=== PATIENT | male | born 1990 | race Caucasian/White ===

== ENCOUNTER 2019-10-25 08:14 | Emergency (ER) | payer BC, SELFPAY ==
[2019-10-25 08:28] VITALS: BP 125/77; PULSE 90; RESP 20; TEMP 37.2; O2SAT 98
--- NOTE | 2019-10-25 08:39 | ED.GENADULT ---
HPI - General Adult General Chief complaint: Upper Respiratory Infection Stated complaint: Ear ache and sore throat Time Seen by Provider: 10/25/19 08:39 Source: patient and RN notes reviewed Mode of arrival: ambulatory Limitations: no limitations History of Present Illness HPI narrative: 29-year-old male presents with complaints of congestion, RT otalgia, and sore throat for 1 day. Tylenol, last night of 10/25/19 with little relief. No high fevers, drooling, neck or throat swelling. Pain is bilateral. Hurts to swallow. Exacerbation factors consist of eating and drinking. No rhinorrhea. Nasal congestion. No voice change. No nausea, vomiting, or abdominal pain. Tolerating liquids well. Denies chills, dyspnea, difficulty swallowing, jaw pain, dental pain, facial pain, foreign body sensation, and rash. Remains active. The patient reports he have not been diagnosed with COVID-19. The patient reports he is not waiting for the results of a COVID-19 lab test. The patient reports he do not have fever, chills, weakness, or fatigue. The patient reports he do not have a new or worsening cough or shortness of breath. Denies chest pain. The patient reports he do not have any loss of taste, rhinorrhea, or diarrhea. Denies recent traveling. Denies concerns for COVID-19 or exposures been home with limited outdoor exposure except for essential household needs, work, and return home. At this time, patient is not suspected of having COVID-19. Some parts of this dictation were generated by voice recognition software and may contain typographical and/or grammatical inaccuracies. Related Data Home Medications Medication Instructions Recorded Confirmed mesalamine [Canasa] 1,000 mg HI PRN 10/25/19 10/25/19 Allergies Allergy/AdvReac Type Severity Reaction Status Date / Time No Known Allergies Allergy Verified 10/25/19 09:00 Review of Systems Review of Systems: Narrative: CONSTITUTIONAL: Denies fever, chills, sweats. EYES: Denies visual changes, redness, discharge. ENT: Denies rhinorrhea,. Complains of sore throat, congestion, RT otalgia. CARDIOVASCULAR: Denies chest pain, palpitations, edema. RESPIRATORY: Denies dyspnea, wheezing, cough. GASTROINTESTINAL: Denies abdominal pain, nausea, vomiting, diarrhea. GENITOURINARY: Denies dysuria, hematuria, abnormal discharge. SKIN: Denies rash or itching. MUSCULOSKELETAL: Denies acute back pain, joint pain, or myalgia. NEUROLOGIC: Denies numbness or focal weakness. PSYCHIATRIC: Denies anxiety or depression. All systems reviewed & are unremarkable except as noted in HPI and below. [facility] Past Medical History Medical History (Updated 10/26/19 @ 00:00 by Noy Lindo) Acid reflux Ulcerative colitis Surgical History Surgical History (Updated 10/25/19 @ 09:09 by JAKE Alexander) No significant past surgical history Family History Family History (Updated 10/25/19 @ 09:10 by JAKE Alexander) Father Alive and well Mother Alive and well Social History Social History (Updated 10/25/19 @ 09:11 by JAKE Alexander) Smoking status: Former smoker Tobacco type: cigarettes Second hand tobacco smoke exposure: No Smoking end date: 03/04/11 Alcohol intake: never Substance use: never Living arrangements: with family Occupation/Education: occupation Gender identity (if verbalized by the patient): Male Comments At time of signature, agree with nurse past medical, surgical, social, and family history. There is no relevant family history pertinent to the presenting complaint. Exam Narrative: Exam Narrative: GENERAL: This is a well-nourished, well-developed patient, in no apparent distress. Speaks in full sentences without deficits and ambulates with steady gait without dyspnea. HEAD: normocephalic, atraumatic. EYES: PERRL. Sclera clear/white. Vision is grossly intact. EARS: External ears normal, auditory canals clear and without drai
== END 2019-10-25 09:10 | disposition home or self-care (01) ==
PROVIDERS: Emergency Provider Nurse Practitioner Family; PCP Family Medicine
DX: J02.9 Acute pharyngitis, unspecified (principal); Z20.828 Contact with and (suspected) exposure to other viral communicable diseases; Z87.891 Personal history of nicotine dependence; K21.9 Gastro-esophageal reflux disease without esophagitis
CPT/HCPCS: 87081; 87804; 87880; 99213; G0463

== ENCOUNTER → 2021-09-08 13:19 | Outpatient (CLI) | payer OTHER, SELFPAY ==
--- NOTE | ~2021-09-08 | CT_ITS ---
EXAMINATION: CT sinus wo con DATE: 09/08/2021 13:40 INDICATION: Chronic sinusitis. Congestion. TECHNIQUE: Computed tomography (CT) of the paranasal sinuses was performed without contrast. Iterativ e reconstruction technique was employed. Exam dose: 295.93 mGy-cm total exam DLP. COMPARISON: None FINDINGS: There is rightward deviation of nasal septum. There is intralamellar cell of both middle nasal turbinates. There is moderately prominent soft tissu e swelling of the middle and inferior nasal turbinates. There is soft tissue thickening of the right maxillary ostium and prominent partial opacification of the right infundibulum. The left ostiomeatal unit is patent. There is minimal mucoperiosteal thickening of the left frontal sinus. There is patchy soft tissue opacification of some ethmoid air cells. There is nodular mucoperiosteal thickening of the right maxillary sinus and the roof and floor of the left maxillary sinus. The sphenoid sinuses are clear. The mastoid air cells are normally developed and aerated. IMPRESSION: Rightward deviation of nasal septum Bilateral prominent soft tissue swelling of the nasal turbinates Intralamellar cell of both middle nasal turbinates Polypoid soft tissue thickening of the maxillary sinuses, right greater than left Opacification of right maxillary ostium and partial opacification of right infundibulum Mild patchy soft tissue thickening of the ethmoid air cells Minimal new comparison thickening of the left frontal sinus Reviewed, dictated and finalized at [facility]. Reviewed, dictated and finalized at [facility]. IMPRESSION: Rightward deviation of nasal septum Bilateral prominent soft tissue swelling of the nasal turbinates Intralamellar cell of both middle nasal turbinates Polypoid soft tissue thickening of the maxillary sinuses, right greater than le ft Opacification of right maxillary ostium and partial opacification of right infu ndibulum Mild patchy soft tissue thickening of the ethmoid air cells Minimal new comparison thickening of the left frontal sinus
== END ==
PROVIDERS: PCP Family Medicine; Visit Provider Otolaryngology
DX: J32.9 Chronic sinusitis, unspecified (principal); J34.2 Deviated nasal septum
CPT/HCPCS: 70486

== ENCOUNTER 2022-02-28 15:04 | Emergency (ER) | payer OTHER, SELFPAY ==
[2022-02-28 15:10] VITALS: BP 136/74; PULSE 97; RESP 20; TEMP 37.8; O2SAT 98
--- NOTE | 2022-02-28 15:11 | ED.NAVMDI ---
HPI - Nausea/Vomiting/Diarrhea General Chief complaint: Upper Respiratory Infection Stated complaint: Fever/Vomiting Time Seen by Provider: 02/28/22 15:11 Source: patient and RN notes reviewed History of Present Illness HPI Narrative: patient is a 31-year-old male who presents to urgent care with complaints of fever, vomiting, nausea, chills, body aches and sinus congestion. Patient states that it started yesterday. Patient was on amoxicillin on February 08 for 10 days for an ear infection. Patient has been taking ibuprofen for the fevers. No other acute complaints. No acute distress noted. Patient aware of the plan of care. Some parts of this dictation were generated by voice recognition software and may contain typographical and/or grammatical inaccuracies. Related Data Home Medications Medication Instructions Recorded Confirmed mesalamine 1,000 mg rectal 1 g RECTAL HS 02/28/22 02/28/22 suppository (Canasa) omeprazole 40 mg capsule,delayed 40 mg PO DAILY 02/28/22 02/28/22 release Allergies Allergy/AdvReac Type Severity Reaction Status Date / Time cephalexin [From Keflex] Allergy Unknown Unknown Verified 02/28/22 15:20 diphtheria,pertussis Allergy Unknown Unknown Verified 02/28/22 15:20 (acellular),te [From Boostrix Tdap] erythromycin base Allergy Unknown Unknown Verified 02/28/22 15:20 Review of Systems Review of Systems: CONSTITUTIONAL: reports of fever, chills EYES: Denies visual changes, redness, or discharge. ENT: Reports of sinus congestion CARDIOVASCULAR: Denies chest pain, palpitations, or edema. RESPIRATORY: Denies cough or dyspnea. GASTROINTESTINAL: reports of nausea and vomiting without diarrhea or abdominal pain GENITOURINARY: Denies dysuria or hematuria. SKIN: Denies rash or itching. MUSCULOSKELETAL: Denies back pain, joint pain. Reports of body aches NEUROLOGIC: Denies headache, numbness, or weakness. PSYCHIATRIC: Denies anxiety or depression. All other systems reviewed are negative, except as documented in HPI. [facility] Past Medical History Medical History (Updated 02/28/22 @ 15:33 by JAKE Choi) Acid reflux Ulcerative colitis Surgical History Surgical History (Updated 10/25/19 @ 09:09 by JAKE Alexander) No significant past surgical history Family History Family History (Updated 10/25/19 @ 09:10 by JAKE Alexander) Father Alive and well Mother Alive and well Social History Social History (Updated 10/25/19 @ 09:11 by JAKE Alexander) Smoking status: Former smoker Tobacco type: cigarettes Second hand tobacco smoke exposure: No Smoking end date: 03/04/11 Alcohol intake: never Substance use: never Gender identity (if verbalized by the patient): Male Comments At the time of my signature, I reviewed and agree with the nursing past medical, surgical, social, and family history. There is no relevant family history pertinent to the patient complaint. Exam Narrative: GENERAL: This is a well-nourished, well-developed patient, in no apparent distress. HEAD: normocephalic, atraumatic. EYES: PERRL. Sclera clear/white. Vision is grossly intact. EARS: External ears normal, auditory canals clear and without drainage, TMs normal without perforation. Hearing grossly intact. NOSE: External nose normal with no obvious nasal discharge, nares without redness, clear rhinorrhea. THROAT: Mucous membranes moist, posterior pharynx clear. Moderate postnasal drainage NECK: Neck supple, non-tender without lymphadenopathy CARDIOVASCULAR: Regular rate and rhythm without murmurs, gallops, or rubs. RESPIRATORY: Clear to auscultation. Breath sounds equal bilaterally. No wheezes, rales, or rhonchi. GASTROINTESTINAL: Abdomen soft, non-tender, nondistended. Bowel sounds are active. SKIN: slightly diaphoretic.warm, intact with no suspicious lesions or rash, good texture and turgor. NEURO: awake, alert, and oriented to person, plac
== END 2022-02-28 15:35 | disposition home or self-care (01) ==
PROVIDERS: Emergency Provider Nurse Practitioner Family; PCP Family Medicine
DX: B34.9 Viral infection, unspecified (principal); Z87.891 Personal history of nicotine dependence
CPT/HCPCS: 87804; 99213; G0463

== ENCOUNTER 2022-04-09 17:50 | Emergency (ER) | payer OTHER, SELFPAY ==
--- NOTE | 2022-04-09 18:03 | ED.URI ---
HPI - URI/Sore Throat General Chief Complaint: Upper Respiratory Infection Stated Complaint: cold sore throat Time Seen by Provider: 04/09/22 18:04 Source: patient and RN notes reviewed History of Present Illness HPI Narrative: patient is a 31-year-old male who presents to urgent care with complaints of scratchy throat, bilateral otalgia, sinus pressure/pain, nasal drainage. Patient states that it started with nasal drainage on Saturday and he woke up last night with the other symptoms. States that his daughter is also been ill with vomiting. Denies any fever, nausea or vomiting. Patient has taken Tylenol for his sinus headaches and Sudafed for the last couple days. Patient has been on antibiotics several times for sinusitis and has not follow up with his ENT. No other acute complaints. No acute distress noted. Patient aware of the plan care. Some parts of this dictation were generated by voice recognition software and may contain typographical and/or grammatical inaccuracies. Related Data Allergies Allergy/AdvReac Type Severity Reaction Status Date / Time cephalexin [From Keflex] Allergy Unknown Unknown Verified 02/28/22 15:20 diphtheria,pertussis Allergy Unknown Unknown Verified 02/28/22 15:20 (acellular),te [From Boostrix Tdap] erythromycin base Allergy Unknown Unknown Verified 02/28/22 15:20 Review of Systems Review of Systems: CONSTITUTIONAL: Denies fever, chills, or sweats. EYES: Denies visual changes, redness, or discharge. ENT: Reports nasal drainage, congestion, sinus pressure, sore throat CARDIOVASCULAR: Denies chest pain, palpitations, or edema. RESPIRATORY: Denies cough or dyspnea. GASTROINTESTINAL: Denies abdominal pain, nausea, vomiting, or diarrhea. GENITOURINARY: Denies dysuria or hematuria. SKIN: Denies rash or itching. MUSCULOSKELETAL: Denies back pain, joint pain, or myalgia. NEUROLOGIC: Denies headache, numbness, or weakness. All other systems reviewed are negative, except as documented in HPI. [facility] Past Medical History Medical History (Updated 04/09/22 @ 18:43 by JAKE Choi) Acid reflux Ulcerative colitis Surgical History Surgical History (Updated 10/25/19 @ 09:09 by JAKE Alexander) No significant past surgical history Family History Family History (Updated 10/25/19 @ 09:10 by JAKE Alexander) Father Alive and well Mother Alive and well Social History Social History (Updated 10/25/19 @ 09:11 by JAKE Alexander) Smoking status: Former smoker Tobacco type: cigarettes Second hand tobacco smoke exposure: No Smoking end date: 03/04/11 Alcohol intake: never Substance use: never Living arrangements: with family Occupation/Education: occupation Gender identity (if verbalized by the patient): Male Comments At the time of my signature, I reviewed and agree with the nursing past medical, surgical, social, and family history. There is no relevant family history pertinent to the patient complaint. Exam Narrative: GENERAL: This is a well-nourished, well-developed patient, in no apparent distress. HEAD: normocephalic, atraumatic. EYES: PERRL. Sclera clear/white. Vision is grossly intact. EARS: External ears normal, auditory canals clear and without drainage, TMs normal without perforation. Hearing grossly intact. NOSE: External nose normal with no obvious nasal discharge, nares without redness, clear rhinorrhea. THROAT: Mucous membranes moist, posterior pharynx clear. moderate postnasal drip NECK: Neck supple, non-tender without lymphadenopathy CARDIOVASCULAR: Regular rate and rhythm without murmurs, gallops, or rubs. RESPIRATORY: Clear to auscultation. Breath sounds equal bilaterally. No wheezes, rales, or rhonchi. SKIN: warm, intact with no suspicious lesions or rash, good texture and turgor. NEURO: awake, alert, and oriented to person, place and time. There were no obvious focal neurologic abnormalities. EXTREMITI
[2022-04-09 18:05] VITALS: BP 134/79; PULSE 66; RESP 18; TEMP 36.6; O2SAT 98
== END 2022-04-09 18:47 | disposition home or self-care (01) ==
PROVIDERS: Emergency Provider Nurse Practitioner Family; PCP Family Medicine
DX: J32.9 Chronic sinusitis, unspecified (principal); K21.9 Gastro-esophageal reflux disease without esophagitis; Z87.891 Personal history of nicotine dependence
CPT/HCPCS: 87081; 87880; 99213; G0463

== ENCOUNTER 2022-05-14 09:00 | Outpatient (NON) | payer OTHER, SELFPAY | END 2022-05-14 09:01 | disposition home or self-care (01) | PROVIDERS: PCP Family Medicine; Visit Provider Internal Medicine Gastroenterology | DX: K51.90 Ulcerative colitis, unspecified, without complications (principal) | CPT/HCPCS: 88305 ==

== ENCOUNTER 2022-05-14 12:21 | Day surgery (SDC) | payer OTHER, SELFPAY ==
[2022-05-03 08:03] VITALS: BMI 27.3
[2022-05-14 12:47] VITALS: BP 125/79; PULSE 85; RESP 16; TEMP 36.9; O2SAT 99; BMI 25.9
--- NOTE | 2022-05-14 12:48 | P.PNAN_ITS ---
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 Patient Data Age: 31 Gender: M Height: 1.75 m Weight: 84 kg Allergies Allergy/AdvReac Type Severity Reaction Status Date / Time cephalexin [From Keflex] Allergy Unknown Unknown Verified 05/14/22 12:46 diphtheria,pertussis Allergy Unknown Unknown Verified 05/14/22 12:46 (acellular),te [From Boostrix Tdap] erythromycin base Allergy Unknown Unknown Verified 05/14/22 12:46 Home Medications Medication Instructions Recorded Confirmed Type fluticasone propionate 50 2 spray intranasal DAILY #15.8 mL 04/09/22 05/03/22 Rx mcg/actuation nasal spray,suspension (Flonase Allergy Relief) mesalamine 1,000 mg rectal 1 g RECTAL QHS PRN diarrhea #14 ea 04/25/22 05/03/22 Rx suppository (Canasa) methylprednisolone 4 mg tablets in 4 mg PO DAILY #21 ea 04/26/22 05/03/22 Rx a dose pack (Medrol (Pineda)) sodium,potassium,mag sulfates 17.5 See Rx Instructions PO .COMPLEX 05/10/22 Rx gram-3.13 gram-1.6 gram oral soln #354 mL (Suprep Bowel Prep Kit) Patient hx anesthesia problems: none Family hx anesthesia problems: none Results Review: All pre-operative results and documents have been reviewed as part of the pre- operative evaluation. [facility] Past Medical History Medical History Acid reflux Ulcerative colitis Surgical History Surgical History No significant past surgical history Family History Family History Father Alive and well Mother Alive and well Social History Social History Smoking status: Never smoker Tobacco type: cigarettes Second hand tobacco smoke exposure: No Smoking end date: 03/04/11 Alcohol intake: never Substance use: never Substance use type: does not use Living arrangements: with family Occupation/Education: occupation Gender identity (if verbalized by the patient): Male Spiritual care concerns: No Anes - Eval Final PreProcedure Day of Procedure 05/14/22 12:48 Patient weight: overweight Heart: regular rate and rhythm Lungs: clear to auscultation and normal air movement Airway: Mallampati scale class II Neurological: alert and oriented Last oral intake: >/= 8 hours ASA classification: II Emergent: no Anesthetic plan: proceed Anesthesia type and monitoring: general GIVS Results Review: All pre-operative results and documents have been reviewed as part of the pre- operative evaluation. Informed Consent: The patient's anesthetic plan and its attendant risks and benefits were discussed with the patient/family/POA. Questions were solicited and answers provided to the satisfaction of the patient/family/POA.
[2022-05-14] MEDS: LACTATED RINGERS 1,000 ML 150 ML IV CONT (13:15)
--- NOTE | 2022-05-14 13:21 | WPDHPUPDATE1 ---
History and Physical Update Update Date/Time: 05/14/22 13:21 History and Physical has been reviewed, including an updated exam of the patient. There are NO changes in the patient's condition. Risks, benefits, and alternatives have been discussed and questions answered. Patient agrees to proceed with procedure.
[2022-05-14 15:23] VITALS: BP 123/71; PULSE 87; RESP 16; O2SAT 99
[2022-05-14 15:33] VITALS: BP 117/75; PULSE 88; RESP 16; O2SAT 100
--- NOTE | 2022-05-14 15:38 | WPDANESPN ---
Anes - Prog Note Post-Op Date/Time: 05/14/22 15:38 Cardiovascular status: normal Respiratory status: normal Airway patency: baseline Mental status: baseline Post-Op hydration status: normal Vital Signs: Last Vital Signs Temp 36.9 C 05/14/22 12:47 Pulse 87 05/14/22 15:23 Resp 16 05/14/22 15:23 BP 123/71 05/14/22 15:23 Pulse Ox 99 05/14/22 15:23 O2 Del Method Room Air 05/14/22 15:23 Pain Score (VAS): 0 I/O: Intake & Output 05/13/22 05/14/22 05/14/22 23:59 07:59 15:59 Intake Total 400 Balance 400 Post-procedural complaints: none Patient Feedback: Patient satisfied with anesthetic care.
[2022-05-14 15:43] VITALS: BP 122/77; PULSE 87; RESP 20; O2SAT 100
== END 2022-05-14 16:00 | disposition home or self-care (01) ==
PROVIDERS: PCP Family Medicine; Visit Provider Internal Medicine Gastroenterology
PROC: 0DJD8ZZ Inspection of Lower Intestinal Tract, Via Natural or Artificial Opening Endoscopic (ICD-10-PCS; CPT 45378; principal; 2022-05-14 14:00)
DX: K51.90 Ulcerative colitis, unspecified, without complications (principal)
CPT/HCPCS: 45380

== ENCOUNTER 2022-06-03 08:15 | Emergency (ER) | payer OTHER, SELFPAY ==
[2022-06-03 08:19] VITALS: BP 124/69; PULSE 96; RESP 18; TEMP 36.9; O2SAT 98
--- NOTE | 2022-06-03 08:35 | ED.GENADULT ---
HPI - General Adult General Chief complaint: Upper Respiratory Infection Stated complaint: Congestion/Cough Source: patient Mode of arrival: ambulatory Limitations: no limitations History of Present Illness HPI narrative: Pt presents for evaluation of sinus symptoms. Symptoms have been present for about one week. He reports sinus congestion, mucopurulent discharge from his nares, productive cough of green/yellow sputum. No fever, chills, nausea, vomiting, diarrhea. His daughter recently had similar symptoms. He has a history of sinusitis and this is similar. He does not smoke. No additional complaints or concerns. Related Data Allergies Allergy/AdvReac Type Severity Reaction Status Date / Time cephalexin [From Keflex] Allergy Unknown Unknown Verified 06/03/22 08:27 diphtheria,pertussis Allergy Unknown Unknown Verified 06/03/22 08:27 (acellular),te [From Boostrix Tdap] erythromycin base Allergy Unknown Unknown Verified 06/03/22 08:27 Review of Systems Review of Systems: CONSTITUTIONAL: Denies fever, chills, or sweats. EYES: Denies visual changes, redness, or discharge. ENT: Reports sinus congestion and mucopurulent discharge from nares CARDIOVASCULAR: Denies chest pain, palpitations, or edema. RESPIRATORY: Reports productive cough. Denies dyspnea. GASTROINTESTINAL: Denies abdominal pain, nausea, vomiting, or diarrhea. GENITOURINARY: Denies dysuria or hematuria. SKIN: Denies rash or itching. MUSCULOSKELETAL: Denies back pain, joint pain, or myalgia. NEUROLOGIC: Denies headache, numbness, dizziness, or weakness. PSYCHIATRIC: Denies anxiety or depression. [facility] Past Medical History Medical History Acid reflux Ulcerative colitis Surgical History Surgical History No significant past surgical history Family History Family History Father Alive and well Mother Alive and well Social History Social History Smoking status: Never smoker Tobacco type: cigarettes Second hand tobacco smoke exposure: No Smoking end date: 03/04/11 Alcohol intake: never Substance use: never Substance use type: does not use Living arrangements: with family Occupation/Education: occupation Gender identity (if verbalized by the patient): Male Spiritual care concerns: No Exam Narrative: GENERAL: Well-appearing, well-nourished, and in no acute distress. HEAD: Normocephalic, atraumatic. EYES: PERRLA and EOMI. ENT: Bilateral maxillary and frontal sinus tenderness. There is mucopurulent discharge in the nares bilaterally. Mucous membranes moist. Oropharynx without tonsillar hypertrophy exudate or other lesions. Bilateral TMs pearly batista nonbulging NECK: Supple. No adenopathy or masses. No carotid bruits or JVD CHEST: Clear to auscultation. No respiratory distress. No wheezes rales or rhonchi HEART: Regular rate and rhythm. No murmur heard. Normal peripheral pulses. ABDOMEN: Soft, nontender, nondistended, normal active bowel sounds. EXTREMITIES: Normal range of motion. No edema. SKIN: Warm, dry, no rash. NEURO: No focal deficits. Alert and oriented x3. PSYCH: Normal mood and affect. Course Course Emergency Course: This is a 31-year-old male who presented for evaluation of sinus symptoms. He meets criteria for ABRS based on duration of time for which he has been symptomatic and quality of discharge. Follow-up outpatient for further evaluation treatment go to the ER for worsening symptoms. Pt in agreement with plan of care. Level of Care: Express Care Visit Vital Signs Vital signs: Vital Signs Temperature 36.9 C 06/03/22 08:19 Pulse Rate 96 06/03/22 08:19 Respiratory Rate 18 06/03/22 08:19 Blood Pressure 124/69 06/03/22 08:19 Pulse Oximetry 98 0
== END 2022-06-03 08:35 | disposition home or self-care (01) ==
PROVIDERS: Emergency Provider Nurse Practitioner; PCP Family Medicine
DX: J01.90 Acute sinusitis, unspecified (principal); K21.9 Gastro-esophageal reflux disease without esophagitis; Z87.891 Personal history of nicotine dependence
CPT/HCPCS: 99213; G0463

== ENCOUNTER 2022-09-05 08:03 | Emergency (ER) | payer OTHER, SELFPAY ==
[2022-09-05 08:09] VITALS: BP 148/85; PULSE 92; RESP 16; TEMP 36.3; O2SAT 99
--- NOTE | 2022-09-05 08:15 | ED.EAR ---
HPI - Ear Problem General Chief complaint: Ear Stated complaint: Ear Pain Source: patient and RN notes reviewed History of Present Illness HPI Narrative: 31 yo M presents to urgent care with complaints of left ear pain since Saturday. Pt states his pain is now extending to left upper jaw line and posterior ear. Pt reports some congestion. Denies any fevers, chills, sore throat, or recent swimming. Related Data Allergies Allergy/AdvReac Type Severity Reaction Status Date / Time cephalexin [From Keflex] Allergy Unknown Unknown Verified 06/20/22 08:27 diphtheria,pertussis Allergy Unknown Unknown Verified 06/20/22 08:27 (acellular),te [From Boostrix Tdap] erythromycin base Allergy Unknown Unknown Verified 06/20/22 08:27 Review of Systems Review of Systems: CONSTITUTIONAL: Denies fever, chills, or sweats. EYES: Denies visual changes, redness, or discharge. ENT: Left ear pain CARDIOVASCULAR: Denies chest pain, palpitations, or edema. RESPIRATORY: Denies cough or dyspnea. GASTROINTESTINAL: Denies abdominal pain, nausea, vomiting, or diarrhea. GENITOURINARY: Denies dysuria or hematuria. SKIN: Denies rash or itching. MUSCULOSKELETAL: Denies back pain, joint pain, or myalgia. NEUROLOGIC: Denies headache, numbness, or weakness. Pertinent positives per HPI. [facility] Past Medical History Medical History Acid reflux Ulcerative colitis Surgical History Surgical History No significant past surgical history Family History Family History Father Alive and well Mother Alive and well Social History Social History Smoking status: Never smoker Tobacco type: cigarettes Second hand tobacco smoke exposure: No Smoking end date: 03/04/11 Alcohol intake: never Substance use: never Substance use type: does not use Living arrangements: with family Occupation/Education: occupation Gender identity (if verbalized by the patient): Male Spiritual care concerns: No Comments At the time of my signature, I reviewed and agree with the nursing past medical, surgical, social, and family history. There is no relevant family history pertinent to the patient complaint. Exam Narrative: GENERAL: This is a well-nourished, well-developed patient, in no apparent distress. HEAD: normocephalic, atraumatic. EYES: Sclera clear/white. Vision is grossly intact. EARS: Left ear canal erythremic, tender, and edematous. Erythema extends to tragus and posterior ear. no drainage noted. NOSE: External nose normal with no obvious nasal discharge, nares without redness, no rhinorrhea. THROAT: Mucous membranes moist, posterior pharynx clear. NECK: Neck supple, non-tender without lymphadenopathy, masses or thyromegaly. CARDIOVASCULAR: Regular rate RESPIRATORY: No respiratory distress SKIN: warm, intact with no suspicious lesions or rash, good texture and turgor. NEURO: awake, alert, and oriented to person, place and time. There were no obvious focal neurologic abnormalities. Course Course Level of Care: Express Care Visit Vital Signs Vital signs: Vital Signs Temperature 97.4 F L 09/05/22 08:09 Pulse Rate 92 09/05/22 08:09 Respiratory Rate 16 09/05/22 08:09 Blood Pressure 148/85 H 09/05/22 08:09 Pulse Oximetry 99 09/05/22 08:09 Oxygen Delivery Room Air 09/05/22 08:09 Temperature 97.4 F L 09/05/22 08:09 Pulse Rate 92 09/05/22 08:09 Respiratory Rate 16 09/05/22 08:09 Blood Pressure 148/85 H 09/05/22 08:09 Pulse Oximetry 99 09/05/22 08:09 Oxygen Delivery Room Air 09/05/22 08:09 reviewed, Medical Decision Making [facility] Narrative Medical decision making narrative: Take antibiotics as directed. May given ibuprofen and/or Tylenol as needed fo
== END 2022-09-05 08:23 | disposition home or self-care (01) ==
PROVIDERS: Emergency Provider Nurse Practitioner Family; PCP Family Medicine
DX: H60.502 Unspecified acute noninfective otitis externa, left ear (principal); K21.9 Gastro-esophageal reflux disease without esophagitis
CPT/HCPCS: 99213; G0463

== ENCOUNTER 2022-12-27 07:58 | Emergency (ER) | payer OTHER, SELFPAY ==
--- NOTE | 2022-12-27 08:02 | ED.URI ---
HPI - URI/Sore Throat General Chief Complaint: Upper Respiratory Infection Stated Complaint: throat/right ear Time Seen by Provider: 12/27/22 08:07 Source: patient, RN notes reviewed and old records reviewed Mode of arrival: ambulatory Limitations: no limitations History of Present Illness HPI Narrative: 32-year-old male presents to the [facility] with complaints of sore throat and right ear pain. States right ear started about 2 days ago, woke up this morning with a scratchy throat. Has no concern for strep, declined testing Related Data Allergies Allergy/AdvReac Type Severity Reaction Status Date / Time cephalexin [From Keflex] Allergy Unknown Unknown Verified 12/27/22 08:12 diphtheria,pertussis Allergy Unknown Unknown Verified 12/27/22 08:12 (acellular),te [From Boostrix Tdap] erythromycin base Allergy Unknown Unknown Verified 12/27/22 08:12 Review of Systems Review of Systems: All systems reviewed & are unremarkable except as noted in HPI and below Constitutional: Constitutional: Reports no additional constitutional complaints Eyes: Eyes: Reports no additional eye complaints ENT: Reports as per HPI and Reports otalgia (Right) Cardiovascular: Cardiovascular: Reports no additional cardiovascular complaints, Denies chest pain and Denies dyspnea Respiratory: Respiratory: Reports no additional respiratory complaints, Denies chest congestion, Denies cough and Denies dyspnea Gastrointestinal: Gastrointestinal: Reports no additional gastrointestinal complaints, Denies abdominal pain, Denies nausea and Denies vomiting Musculoskeletal: Musculoskeletal: Reports no additional musculoskeletal complaints Integumentary/Breasts: Skin/Breast: Reports system reviewed and no additional complaints, except as docu Neurologic: Reports system reviewed and no additional complaints, except as documented Psychiatric: Psychiatric: Reports no additional psychiatric complaints Allergic/Immunologic: Allergic/Immunologic: Reports no additional allergic/immunologic complaints [facility] Past Medical History Medical History Acid reflux Ulcerative colitis Surgical History Surgical History No significant past surgical history Family History Family History Father Alive and well Mother Alive and well Social History Social History Smoking status: Never smoker Tobacco type: cigarettes Second hand tobacco smoke exposure: No Smoking end date: 03/04/11 Alcohol intake: never Substance use: never Substance use type: does not use Living arrangements: with family Occupation/Education: occupation Gender identity (if verbalized by the patient): Male Spiritual care concerns: No Comments At the time of my signature, I reviewed and agree with the nursing past medical, surgical, social, and family history. There is no relevant family history pertinent to the patient complaint. Exam Const: General: cooperative, healthy appearing, comfortable, no acute distress, well developed, alert and well nourished Nutritional Appearance: well nourished Orientation/consciousness: patient oriented x3 Limitations: no limitations HENMT: Head: normal to inspection Ears: hearing grossly normal bilaterally, external ears normal, TM's normal bilaterally and EAC's normal Face/Nose/Sinus: Normal external nose present, Normal nares present, Normal nasal mucous membranes and turbinates present, normal facial exam and face symmetric Face and sinus: normal facial exam and face symmetric Mouth: Yes Normal oral and palatal mucosa present, Yes lip normal and Yes moist mucous membranes Throat: posterior oropharynx normal, uvula midline and postnasal drainage Eyes: General: appearance normal, both eyes and all related structures Al
[2022-12-27 08:08] VITALS: BP 121/66; PULSE 69; RESP 18; TEMP 36.3; O2SAT 98
== END 2022-12-27 08:20 | disposition home or self-care (01) ==
PROVIDERS: Emergency Provider Nurse Practitioner; PCP Family Medicine
DX: H65.01 Acute serous otitis media, right ear (principal); K21.9 Gastro-esophageal reflux disease without esophagitis; Z87.891 Personal history of nicotine dependence
CPT/HCPCS: 99213; G0463

== ENCOUNTER 2023-02-16 08:42 | Emergency (ER) | payer OTHER, SELFPAY ==
[2023-02-16 09:12] VITALS: BP 132/71; PULSE 96; RESP 20; TEMP 37.4; O2SAT 98
--- NOTE | 2023-02-16 09:34 | ED.URI ---
HPI - URI/Sore Throat General Chief Complaint: Upper Respiratory Infection Stated Complaint: Congestion Source: patient and RN notes reviewed Mode of arrival: ambulatory Limitations: no limitations History of Present Illness HPI Narrative: 32-year-old male presented for complaint of nasal congestion, mild cough this morning with low fever of 100.5. He states he woke with a sore throat which resolved after hot shower and clearing the nasal drainage. States he has had sinus infection intermittently for about 2 months. He has taken steroids and antibiotics, and had allergy testing yesterday. He has stopped his Zyrtec for the testing. Currently denies shortness of breath, wheezing, nausea, vomiting, or diarrhea. MD elicited complaint: cough Related Data Allergies Allergy/AdvReac Type Severity Reaction Status Date / Time cephalexin [From Keflex] Allergy Unknown Unknown Verified 12/27/22 08:12 diphtheria,pertussis Allergy Unknown Unknown Verified 12/27/22 08:12 (acellular),te [From Boostrix Tdap] erythromycin base Allergy Unknown Unknown Verified 12/27/22 08:12 Review of Systems Review of Systems: CONSTITUTIONAL: Denies malaise, chills, sweats, Reports fever EYES: Denies visual changes, redness, or discharge ENT: Reports rhinorrhea, congestion, denies otalgia, sore throat CARDIOVASCULAR: Denies chest pain, palpitations, edema RESPIRATORY: Reports cough, post nasal drainage. Denies dyspnea GASTROINTESTINAL: Denies abdominal pain, nausea, vomiting, diarrhea SKIN: Denies rash or itching MUSCULOSKELETAL: denies myalgia NEUROLOGIC: Denies headache [facility] Past Medical History Medical History Acid reflux Ulcerative colitis Surgical History Surgical History No significant past surgical history Family History Family History Father Alive and well Mother Alive and well Social History Social History Smoking status: Never smoker Tobacco type: cigarettes Second hand tobacco smoke exposure: No Smoking end date: 03/04/11 Alcohol intake: never Substance use: never Substance use type: does not use Living arrangements: with family Occupation/Education: occupation Gender identity (if verbalized by the patient): Male Spiritual care concerns: No Exam Narrative: GENERAL: well-appearing, nontoxic no acute distress. HEAD: Normocephalic EYES: PERRLA, conjunctivae clear ENT: Mucous membranes moist. Bilateral nares erythematous and mildly swollen. TMs pearly batista with dull light reflex bilaterally; no tragal tenderness. Oropharynx not erythematous without lesions or exudate, no drooling, no hoarseness, no trismus, uvula midline. No tripod positioning, muffled voice, soft palate or pharyngeal wall bulging NECK: Supple. No lymphadenopathy CHEST: Clear to auscultation, breath sounds equal. No wheezing, rhonchi, rales, or stridor. No respiratory distress, speaks in full sentences. HEART: Regular rate and rhythm. No murmur heard. SKIN: Warm, dry, no rash. NEURO: Alert and oriented x3. PSYCH: Normal mood and affect Course Course Emergency Course: Patient is aware of diagnosis, understands and agrees to treatment plan. Anticipatory guidance given. Patient agrees to follow-up as directed and is aware of reasons to seek care at the emergency department. Portions of this record may have been created with voice recognition software Level of Care: Express Care Visit Vital Signs Vital signs: Vital Signs Temperature 99.4 F 02/16/23 09:12 Pulse Rate 96 02/16/23 09:12 Respiratory Rate 20 02/16/23 09:12 Blood Pressure 132/71 02/16/23 09:12 Pulse Oximetry 98 02/16/23 09:12 Oxygen Delivery Room Air 02/16/23 09:12 Temperature 99.4 F 02/16/23 09:12 Puls
== END 2023-02-16 09:50 | disposition home or self-care (01) ==
PROVIDERS: Emergency Provider Nurse Practitioner Family; PCP Family Medicine
DX: J06.9 Acute upper respiratory infection, unspecified (principal)
CPT/HCPCS: 99211; G0463

== ENCOUNTER 2023-03-02 09:44 | Emergency (ER) | payer OTHER, SELFPAY ==
[2023-03-02 09:50] VITALS: BP 178/74; PULSE 94; RESP 18; TEMP 36.7; O2SAT 98
--- NOTE | 2023-03-02 10:04 | ED.GENADULT ---
HPI - General Adult General Chief complaint: Skin/Abscess/Foreign Body Stated complaint: Rash Source: patient, RN notes reviewed and old records reviewed Mode of arrival: ambulatory Limitations: no limitations History of Present Illness HPI narrative: 32-year-old male presents to Express Care with complaint rash to right upper chest that goes up to the neck. Patient states rash started . Patient states rash is irritated when touched but is non pruritic. patient has not tried anything for rash. MD complaint: rash Onset (ago): day(s) (2) Related Data Home Medications Medication Instructions Recorded Confirmed levocetirizine 5 mg tablet mg 03/02/23 Allergies Allergy/AdvReac Type Severity Reaction Status Date / Time cephalexin [From Keflex] Allergy Unknown Unknown Verified 12/27/22 08:12 diphtheria,pertussis Allergy Unknown Unknown Verified 12/27/22 08:12 (acellular),te [From Boostrix Tdap] erythromycin base Allergy Unknown Unknown Verified 12/27/22 08:12 Review of Systems Constitutional: Constitutional: Reports no additional constitutional complaints, Denies body ache(s), Denies chills, Denies fatigue, Denies fever(s) and Denies headache(s) Eyes: Eyes: Reports no additional eye complaints and Denies blurry vision ENT: Reports system reviewed and no additional complaints, except as documented, Denies vertigo, Denies dizziness, Denies ear discharge, Denies otalgia, Denies facial pain, Denies headache(s), Denies nasal congestion, Denies nasal discharge, Denies sinus pain, Denies sinus pressure and Denies sore throat Cardiovascular: Cardiovascular: Reports no additional cardiovascular complaints, Denies chest pain, Denies chest pain at rest, Denies rapid heart rate and Denies dyspnea Respiratory: Respiratory: Reports no additional respiratory complaints, Denies chest congestion, Denies cough, Denies pain on inspiration, Denies pain with cough and Denies dyspnea Gastrointestinal: Gastrointestinal: Denies abdominal pain, Denies diarrhea, Denies nausea and Denies vomiting Integumentary/Breasts: Skin/Breast: Reports rash Neurologic: Reports system reviewed and no additional complaints, except as documented, Denies vertigo, Denies dizziness and Denies headache(s) Endocrine: Endocrine: Denies fatigue PMFSH Past Medical History Medical History Acid reflux Ulcerative colitis Surgical History Surgical History No significant past surgical history Family History Family History Father Alive and well Mother Alive and well Social History Social History Smoking status: Never smoker Tobacco type: cigarettes Second hand tobacco smoke exposure: No Smoking end date: 03/04/11 Alcohol intake: never Substance use: never Substance use type: does not use Living arrangements: with family Occupation/Education: occupation Gender identity (if verbalized by the patient): Male Spiritual care concerns: No Comments At the time of my signature, I reviewed and agree with the nursing past medical, surgical, social, and family history. There is no relevant family history pertinent to the patient complaint. Exam Const: General: cooperative, healthy appearing, no acute distress and well nourished Nutritional Appearance: well nourished Orientation/consciousness: patient oriented x3 Limitations: no limitations HENMT: Head: normal to inspection and normocephalic Ears: external ears normal, TM's normal bilaterally, mastoids normal and Abnormal EAC present Face/Nose/Sinus: normal facial exam Face and sinus: normal facial exam Mouth: Yes Normal oral and palatal mucosa present, Yes oropharynx normal and Yes moist mucous membranes Throat: tonsils normal, uvula midline and no uvu
== END 2023-03-02 10:14 | disposition home or self-care (01) ==
PROVIDERS: Emergency Provider Registered Nurse; PCP Family Medicine
DX: B02.9 Zoster without complications (principal)
CPT/HCPCS: 99213; G0463

== ENCOUNTER → 2023-04-05 15:11 | Outpatient (CLI) | payer OTHER, SELFPAY ==
--- NOTE | ~2023-04-05 | CT_ITS ---
EXAMINATION: CT sinus wo con DATE: 04/05/2023 15:24 INDICATION: Chronic sinusitis TECHNIQUE: Computed tomography (CT) of the paranasal sinuses was performed without contrast. Iterativ e reconstruction technique was employed. Exam dose: 299.47 mGy-cm total exam DLP. COMPARISON: 09/08/2021 CT sinuses FINDINGS: There is rightward deviation of the nasal septum. Moderately prominent relatively symmetric in size of the nasal turbinates. Saskia bullosa of left middle nasal turbinate and bilateral middle nasal turbinate intralamellar cell . Bilateral Len's cells. There is soft tissue thickening largely occluding the right and left maxillary ostium and infundibulu m. There is severe mucoperiosteal thickening of the right maxillary sinus. Approximately 2 x 2.5 cm soft tissue opacity of the floor of the left maxillary sinus. There is patchy soft tissue thickening of the right ethmoid air cells, particularly prominent [place]. The frontal sinuses and sphenoid sinuses and left ethmoid air cells are clear. The mastoid air cells are well-developed and aerated bilaterally. Middle and inner ear apparatus appear unremarkable bilaterally.. IMPRESSION: Right ethmoid and bilateral (right greater than left) maxillary sinusitis Largely occluded bilateral maxillary ostium and infundibulum Mild saskia bullosa of left middle nasal turbinate and bilateral middle nasal turbinate intralamellar cell Rightward deviation of nasal septum Reviewed, dictated and finalized at [facility] Reviewed, dictated and finalized at [facility] IMPRESSION: Right ethmoid and bilateral (right greater than left) maxillary si nusitis Largely occluded bilateral maxillary ostium and infundibulum Mild saskia bullosa of left middle nasal turbinate and bilateral middle nasal t urbinate intralamellar cell Rightward deviation of nasal septum
== END ==
PROVIDERS: PCP Otolaryngology; Visit Provider Otolaryngology
DX: J32.0 Chronic maxillary sinusitis (principal); J34.2 Deviated nasal septum; J34.89 Other specified disorders of nose and nasal sinuses
CPT/HCPCS: 70486

== ENCOUNTER 2023-06-12 17:36 | Emergency (ER) | payer OTHER, SELFPAY ==
[2023-06-12 17:41] VITALS: BP 125/80; PULSE 92; RESP 16; TEMP 36.7; O2SAT 98
--- NOTE | 2023-06-12 18:24 | ED.GENADULT ---
HPI - General Adult General Chief complaint: Upper Respiratory Infection Stated complaint: throat/sinus issues Time Seen by Provider: 06/12/23 18:04 Source: patient, RN notes reviewed and old records reviewed Mode of arrival: ambulatory Limitations: no limitations History of Present Illness HPI narrative: 32-year-old male to Express Care for throat discomfort, sinus congestion, bilateral ear discomfort for 2 days. Patient reports chronic sinus issues. Patient scheduled for surgery on sinuses in 4 days. patient denies fever, cough, known sick exposures. Patient able to control secretions. Patient able to tolerate fluids by mouth. Related Data Home Medications Medication Instructions Recorded Confirmed levocetirizine 5 mg tablet 5 mg PO DAILY 03/02/23 06/12/23 mesalamine 1,000 mg rectal RECTAL 06/12/23 suppository Allergies Allergy/AdvReac Type Severity Reaction Status Date / Time cephalexin [From Keflex] Allergy Unknown Unknown Verified 06/12/23 17:46 diphtheria,pertussis Allergy Unknown Unknown Verified 06/12/23 17:46 (acellular),te [From Boostrix Tdap] erythromycin base Allergy Unknown Unknown Verified 06/12/23 17:46 Review of Systems Review of Systems: All systems reviewed & are unremarkable except as noted in HPI and below Constitutional: Constitutional: Reports no additional constitutional complaints Eyes: Eyes: Reports no additional eye complaints ENT: Reports otalgia ( Bilateral), Reports nasal congestion and Reports sore throat Cardiovascular: Cardiovascular: Reports no additional cardiovascular complaints, Denies chest pain and Denies dyspnea Respiratory: Respiratory: Reports no additional respiratory complaints, Denies cough and Denies dyspnea Musculoskeletal: Musculoskeletal: Reports no additional musculoskeletal complaints Neurologic: Reports system reviewed and no additional complaints, except as documented Psychiatric: Psychiatric: Reports no additional psychiatric complaints [facility] Past Medical History Medical History Acid reflux Ulcerative colitis Surgical History Surgical History No significant past surgical history Family History Family History Father Alive and well Mother Alive and well Social History Social History Smoking status: Never smoker Tobacco type: cigarettes Second hand tobacco smoke exposure: No Smoking end date: 03/04/11 Alcohol intake: never Substance use: never Substance use type: does not use Living arrangements: with family Occupation/Education: occupation Gender identity (if verbalized by the patient): Male Spiritual care concerns: No Comments At the time of my signature, I reviewed and agree with the nursing past medical, surgical, social, and family history. There is no relevant family history pertinent to the patient complaint. Exam Const: General: cooperative, healthy appearing, comfortable, no acute distress, alert and well nourished Nutritional Appearance: well nourished Orientation/consciousness: patient oriented x3 Limitations: no limitations HENMT: Head: normal to inspection Ears: external ears normal and TM abnormal with fluid behind the TM bilateral Face/Nose/Sinus: Normal external nose present, Normal nares present, normal facial exam, No erythema and No edema Face and sinus: normal facial exam, no erythema and no edema Mouth: Yes Normal oral and palatal mucosa present Throat: posterior oropharynx abnormal erythema and postnasal drainage Eyes: General: appearance normal, both eyes and all related structures Neck: Neck: normal visual inspection, full ROM and no meningeal signs Lymphatic: no lymphadenopathy noted and no lymphedema noted Chest: Chest palpatio
== END 2023-06-12 18:43 | disposition home or self-care (01) ==
PROVIDERS: Emergency Provider Nurse Practitioner Family; PCP Family Medicine
DX: J32.9 Chronic sinusitis, unspecified (principal); F17.210 Nicotine dependence, cigarettes, uncomplicated; K21.9 Gastro-esophageal reflux disease without esophagitis
CPT/HCPCS: 87081; 87880; 99213; G0463

== ENCOUNTER 2023-08-08 17:52 | Emergency (ER) | payer OTHER, SELFPAY ==
[2023-08-08 18:15] VITALS: BP 127/83; PULSE 74; RESP 20; TEMP 37.4; O2SAT 100
--- NOTE | 2023-08-08 18:24 | ED.SKABFB ---
HPI - Skin/Abscess/Foreign Bdy General Chief complaint: Skin/Abscess/Foreign Body Stated complaint: Rash on neck Time Seen by Provider: 08/08/23 18:24 Source: patient Mode of arrival: ambulatory Limitations: no limitations History of Present Illness HPI narrative: 32-year-old male presented for complaint of rash to left neck and right upper eyelid. Onset 4 days. States one of the areas on the left neck is from an insect bite. Endorses mild itching to the sites. Denies pain or drainage. Denies lip, tongue, or throat swelling, shortness of breath or wheezing. Using hydrocortisone cream. Denies changes to soap, detergent, lotion, or any other exposures. No one else in the house or any contacts with similar symptoms. Related Data Home Medications Medication Instructions Recorded Confirmed mesalamine 1,000 mg rectal 1 g RECTAL HS 08/08/23 08/08/23 suppository ([facility]) mesalamine 1.2 gram tablet,delayed 1.2 g PO DAILY 08/08/23 08/08/23 release ([facility]) Allergies Allergy/AdvReac Type Severity Reaction Status Date / Time cephalexin [From Keflex] Allergy Unknown Unknown Verified 08/08/23 18:11 diphtheria,pertussis Allergy Unknown Unknown Verified 08/08/23 18:11 (acellular),te [From Boostrix Tdap] erythromycin base Allergy Unknown Unknown Verified 08/08/23 18:11 Review of Systems Review of Systems: CONSTITUTIONAL: Denies body aches, fever, chills, or sweats. EYES: Denies visual changes, redness, or discharge. ENT: Denies rhinorrhea, congestion CARDIOVASCULAR: Denies chest pain, palpitations, or edema. RESPIRATORY: Denies cough or dyspnea. GASTROINTESTINAL: Denies abdominal pain, nausea, vomiting, or diarrhea. SKIN: Reports rash MUSCULOSKELETAL: Denies back pain, joint pain, or myalgia. NEUROLOGIC: Denies headache, numbness, tingling, or weakness. [facility] Past Medical History Medical History Acid reflux Ulcerative colitis Surgical History Surgical History No significant past surgical history Family History Family History Father Alive and well Mother Alive and well Social History Social History Smoking status: Never smoker Tobacco type: cigarettes Second hand tobacco smoke exposure: No Smoking end date: 03/04/11 Alcohol intake: never Substance use: never Substance use type: does not use Living arrangements: with family Occupation/Education: occupation Gender identity (if verbalized by the patient): Male Spiritual care concerns: No Comments At time of signature, I have reviewed and agree with nursing past medical, surgical, social and family history unless otherwise noted. Please see nursing chart for further information. There is no relevant family history pertinent to the presenting complaint Exam Narrative: GENERAL: Well-appearing EYES: conjunctivae clear, and EOMI. ENT: Mucous membranes moist. Oropharynx without edema, erythema or lesions. NECK: Supple. No lymphadenopathy CHEST: Clear to auscultation. HEART: Regular rate and rhythm. SKIN: Warm, dry. Right upper eyelid with <0.5cm diameter erythematous slightly rased dry area extending medially; left neck with scattered erythematous patches c/w contact dermatitis, nontender, no fluctuance or drainage. NEURO: Alert and oriented x3. Eyes: Eyes/upper lids images: 1. area of erythema Course Course Emergency Course: Patient is aware of diagnosis, understands and agrees to treatment plan. Anticipatory guidance given. Patient agrees to follow-up as directed and is aware of reasons to seek care at the emergency department. Portions of this record may have been created with voice recognition software Level of Care: Express Care Visit Vital Signs Vital signs: Vital Signs
== END 2023-08-08 18:34 | disposition home or self-care (01) ==
PROVIDERS: Emergency Provider Nurse Practitioner Family; PCP Family Medicine
DX: L25.9 Unspecified contact dermatitis, unspecified cause (principal); Z87.891 Personal history of nicotine dependence; K21.9 Gastro-esophageal reflux disease without esophagitis
CPT/HCPCS: 99213; G0463

== ENCOUNTER 2023-09-13 09:33 | Emergency (ER) | payer OTHER, SELFPAY ==
[2023-09-13 09:38] VITALS: BP 142/85; PULSE 85; RESP 16; TEMP 36.8; O2SAT 99
--- NOTE | 2023-09-13 09:49 | ED.SKABFB ---
HPI - Skin/Abscess/Foreign Bdy General Chief complaint: Skin/Abscess/Foreign Body Stated complaint: Rash Time Seen by Provider: 09/13/23 09:49 Source: patient Mode of arrival: ambulatory Limitations: no limitations History of Present Illness HPI narrative: 33 yo M presents with c/o itchy red bumps popping up on skin for past two days. Denies use of any new clothes, medications, food, hygiene products. Does not think are insect bites. Applying OTC steroid cream to treat itching. All systems reviewed and negative except as noted above. Related Data Home Medications Medication Instructions Recorded Confirmed mesalamine 1,000 mg rectal 1 g RECTAL HS 08/08/23 08/08/23 suppository ([place]) Allergies Allergy/AdvReac Type Severity Reaction Status Date / Time cephalexin [From Keflex] Allergy Unknown Unknown Verified 08/08/23 18:11 diphtheria,pertussis Allergy Unknown Unknown Verified 08/08/23 18:11 (acellular),te [From Boostrix Tdap] erythromycin base Allergy Unknown Unknown Verified 08/08/23 18:11 Review of Systems Review of Systems: CONSTITUTIONAL: Denies fever, chills, or sweats. EYES: Denies visual changes, redness, or discharge. ENT: Denies rhinorrhea, congestion, sore throat, or otalgia. CARDIOVASCULAR: Denies chest pain, palpitations, or edema. RESPIRATORY: Denies cough or dyspnea. GASTROINTESTINAL: Denies abdominal pain, nausea, vomiting, or diarrhea. GENITOURINARY: Denies dysuria or hematuria. SKIN: Reports rash and itching. MUSCULOSKELETAL: Denies back pain, joint pain, or myalgia. NEUROLOGIC: Denies headache, numbness, or weakness. PSYCHIATRIC: Denies anxiety or depression. All other systems reviewed are negative, except as documented in HPI. [facility] Past Medical History Medical History Acid reflux Ulcerative colitis Surgical History Surgical History No significant past surgical history Family History Family History Father Alive and well Mother Alive and well Social History Social History Smoking status: Never smoker Tobacco type: cigarettes Second hand tobacco smoke exposure: No Smoking end date: 03/04/11 Alcohol intake: never Substance use: never Substance use type: does not use Living arrangements: with family Occupation/Education: occupation Gender identity (if verbalized by the patient): Male Spiritual care concerns: No Comments At time of signature, agree with nursing past medical, surgical, social and family history. There is no relevant family history pertinent to the presenting complaint. Exam Narrative: GENERAL: This is a well-nourished, well-developed patient, in no apparent distress. HEAD: normocephalic, atraumatic. EYES: PERRL. Sclera clear/white. Vision is grossly intact. EARS: External ears normal NOSE: External nose normal NECK: Neck supple, non-tender without lymphadenopathy, masses or thyromegaly. CARDIOVASCULAR: Regular rate and rhythm without murmurs, gallops, or rubs. RESPIRATORY: Clear to auscultation. Breath sounds equal bilaterally. No wheezes, rales, or rhonchi. SKIN: warm, Dry, intact, good texture and turgor. erythematous maculopapular rash to bilateral arms, pelvis, neck. one to R eyelid NEURO: awake, alert, and oriented to person, place and time. There were no obvious focal neurologic abnormalities. EXTREMITIES: No joint tenderness, effusion, or edema noted. Course Course Level of Care: Express Care Visit Vital Signs Vital signs: Vital Signs Temperature 36.8 C 09/13/23 09:38 Pulse Rate 85 09/13/23 09:38 Respiratory Rate 16 09/13/23 09:38 Blood Pressure 142/85 H 09/13/23 09:38 Pulse Oximetry 99 09/13/23 09:38 Oxygen Delivery Room Air 09/13/23 09:38 Temperature 36.8 C
== END 2023-09-13 10:03 | disposition home or self-care (01) ==
PROVIDERS: Emergency Provider Nurse Practitioner Family; PCP Family Medicine
DX: R21 Rash and other nonspecific skin eruption (principal); Z87.891 Personal history of nicotine dependence; K21.9 Gastro-esophageal reflux disease without esophagitis
CPT/HCPCS: 99213; G0463

== ENCOUNTER 2023-10-26 08:47 | Outpatient (CLI) | payer OTHER, SELFPAY ==
[2023-10-26 10:34] LABS: Iron 141 ug/dL (49-181)
[2023-10-26 10:41] LABS: Alanine Aminotransferase 60 U/L (6-50); Albumin Level 4.5 g/dL (3.5-5.1); Alkaline Phosphatase 68 U/L (38-126); Anion Gap 10 mmol/L (4-12); Aspartate Amino Transferase 34 U/L (17-59); Bilirubin,Total 0.8 mg/dL (0.2-1.3); Blood Urea Nitrogen 15 mg/dL (9-20); CRP < 0.5 mg/dL (<1.0); Calcium 9.3 mg/dL (8.4-10.2); Carbon Dioxide 29 mmol/L (22-30); Chloride 101 mmol/L (98-107); Estimated Glomerular Filt Rate > 60; Glucose 70 mg/dL (65-110); Potassium 3.8 mmol/L (3.4-5.0); Sodium 140 mmol/L (137-145)
[2023-10-26 10:43] LABS: Basophils Absolute Auto 0.1 K/mm3 (0.0-0.1); Basophils Percent Auto 0.9 % (0.2-1.2); Eosinophils Absolute Auto 0.2 K/mm3 (0-0.3); Eosinophils Percent Auto 2.8 % (0-4.4); Hematocrit 47.8 % (42.0-52.0); Hemoglobin 16.4 g/dL (14.0-18.0); Immature Granulocyte Absolute 0.05 K/mm3 (0.00-0.031); Immature Granulocyte Percent A 0.8 % (0-0.5); Mean Corpuscular HGB Conc 34.3 g/dl (32-36); Mean Corpuscular Hemoglobin 30.1 pg (26-34); Mean Corpuscular Volume 87.9 fl (80-100); Mean Platelet Volume 12.3 fl (7.4-10.4); Monocytes Absolute Auto 0.7 K/mm3 (0.1-0.6); Monocytes Percent Auto 11.4 % (2.6-8.5); Neutrophils Absolute Auto 3.4 K/mm3 (1.3-6.7); Neutrophils Percent Auto 54.1 % (45.5-73.1); Percent Iron Saturation 42 % (20-50); Platelet Count Result 169 k/mm3 (150-375); Red Blood Count 5.44 M/mm3 (4.6-6.20); Red Cell Distribution Width 12.3 % (11.5-14.5); White Blood Count 6.3 K/mm3 (4.5-10.0)
== END 2023-10-26 08:48 | disposition home or self-care (01) ==
LOC: ANHLAB 08:49
PROVIDERS: PCP Family Medicine; Visit Provider Nurse Practitioner Family
DX: K21.9 Gastro-esophageal reflux disease without esophagitis (principal); K51.20 Ulcerative (chronic) proctitis without complications
CPT/HCPCS: 36415; 80053; 82728; 83540; 83550; 85025; 86140

== ENCOUNTER 2023-11-05 08:52 | Outpatient (CLI) | payer OTHER, SELFPAY ==
[2023-11-10 16:42] LABS: Calprotectin, Stool 507 mcg/g
== END 2023-11-05 08:53 | disposition home or self-care (01) ==
LOC: ANHLAB 08:53
PROVIDERS: PCP Family Medicine; Visit Provider Nurse Practitioner Family
DX: K51.20 Ulcerative (chronic) proctitis without complications (principal); K21.9 Gastro-esophageal reflux disease without esophagitis
CPT/HCPCS: 83993

== ENCOUNTER 2023-11-05 09:28 | Emergency (ER) | payer OTHER, SELFPAY ==
[2023-11-05 09:38] VITALS: BP 123/70; PULSE 91; RESP 20; TEMP 36.9; O2SAT 100
--- NOTE | 2023-11-05 10:01 | ED.URI ---
HPI - URI/Sore Throat General Chief Complaint: Ear Stated Complaint: ear pain/sinuses Time Seen by Provider: 11/05/23 10:02 Source: patient, RN notes reviewed and old records reviewed Mode of arrival: ambulatory Limitations: no limitations History of Present Illness HPI Narrative: 33-year-old male presents to the [facility] with sinus congestion and right ear pressure that started Saturday, 3 days. Has taken Tylenol, no other treatment prior to arrival Onset (ago): day(s) (3) Treatments prior to arrival: acetaminophen Related Data Home Medications Medication Instructions Recorded Confirmed multivitamin (Multiple Vitamins 1 tablet PO DAILY 10/22/23 11/05/23 tablet) Allergies Allergy/AdvReac Type Severity Reaction Status Date / Time cephalexin [From Keflex] Allergy Unknown Unknown Verified 11/05/23 10:03 diphtheria,pertussis Allergy Unknown Unknown Verified 11/05/23 10:03 (acellular),te [From Boostrix Tdap] erythromycin base Allergy Unknown Unknown Verified 11/05/23 10:03 Review of Systems Review of Systems: All systems reviewed & are unremarkable except as noted in HPI and below Constitutional: Constitutional: Reports no additional constitutional complaints Eyes: Eyes: Reports no additional eye complaints ENT: Reports as per HPI, Reports otalgia, Reports nasal congestion and Reports nasal discharge Cardiovascular: Cardiovascular: Reports no additional cardiovascular complaints, Denies chest pain and Denies dyspnea Respiratory: Respiratory: Reports no additional respiratory complaints, Denies chest congestion, Denies cough and Denies dyspnea Gastrointestinal: Gastrointestinal: Reports no additional gastrointestinal complaints, Denies abdominal pain, Denies nausea and Denies vomiting Musculoskeletal: Musculoskeletal: Reports no additional musculoskeletal complaints Integumentary/Breasts: Skin/Breast: Reports system reviewed and no additional complaints, except as docu Neurologic: Reports system reviewed and no additional complaints, except as documented Psychiatric: Psychiatric: Reports no additional psychiatric complaints Allergic/Immunologic: Allergic/Immunologic: Reports no additional allergic/immunologic complaints [facility] Past Medical History Medical History Acid reflux Ulcerative colitis Surgical History Surgical History H/O sinus surgery No significant past surgical history Family History Family History Father Alive and well Mother Alive and well Social History Social History Smoking status: Never smoker Tobacco type: cigarettes Second hand tobacco smoke exposure: No Smoking end date: 03/04/11 Alcohol intake: never Substance use: never Substance use type: does not use Living arrangements: with family Occupation/Education: occupation Gender identity (if verbalized by the patient): Male Spiritual care concerns: No Comments At the time of my signature, I reviewed and agree with the nursing past medical, surgical, social, and family history. There is no relevant family history pertinent to the patient complaint. Exam Const: General: cooperative, healthy appearing, comfortable, no acute distress, well developed, alert and well nourished Nutritional Appearance: well nourished Orientation/consciousness: patient oriented x3 Limitations: no limitations HENMT: Head: normal to inspection Ears: hearing grossly normal bilaterally, external ears normal, EAC's normal, mastoids normal, no periauricular adenopathy and TM abnormal bulging on the right and with fluid behind the TM bilateral; not erythematous and with no loss of landmarks Face/Nose/Sinus: Normal external nose present, Normal nares present, Normal nasal mucous membranes and turbinates p
[2023-11-05 10:12] LABS: EDINFLUASCREEN Negative; EDINFLUBSCREEN Negative
== END 2023-11-05 10:20 | disposition home or self-care (01) ==
PROVIDERS: Emergency Provider Nurse Practitioner; PCP Family Medicine
DX: R09.82 Postnasal drip (principal); J06.9 Acute upper respiratory infection, unspecified; H65.03 Acute serous otitis media, bilateral; Z20.822 Contact with and (suspected) exposure to COVID-19; Z87.891 Personal history of nicotine dependence; K21.9 Gastro-esophageal reflux disease without esophagitis
CPT/HCPCS: 83993; 87426; 87804; 99213; G0463

== ENCOUNTER 2023-12-05 09:44 | Emergency (ER) | payer OTHER, SELFPAY ==
[2023-12-05 10:05] VITALS: BP 139/72; PULSE 112; RESP 15; TEMP 37.2; O2SAT 98
[2023-12-05 10:46] LABS: EDCOVIDSCREEN Negative (Negative); EDINFLUASCREEN Negative (Negative); EDINFLUBSCREEN Negative (Negative)
--- NOTE | 2023-12-05 11:15 | ED.URI ---
HPI - URI/Sore Throat General Chief Complaint: Upper Respiratory Infection Stated Complaint: Head congestion/headache Time Seen by Provider: 12/05/23 10:50 Source: patient, RN notes reviewed and old records reviewed Mode of arrival: ambulatory Limitations: no limitations History of Present Illness HPI Narrative: 33 year old male presents to express care with complaints of headache that feels like band around head light sensitivity, dry cough and feels queasy for past 2 days with some fevers.. Patient reports some sore throat yesterday none today states some sinus drainage. Patient reports that on Saturdayhe did have 100.5F temp this morning. Reports that daughter was ill over weekend seen [facility] urgent care with viral diagnosis. Patient states that he did home COVID test which was negative. MD elicited complaint: fever, cough, rhinorrhea, nasal congestion and other (headache, feels queasy) Pertinent past history: other (sinus surgery) Onset (ago): day(s) (2) Consistency: constant Pain scale (0-10): 5 Able to tolerate fluids by mouth: Yes Treatments prior to arrival: other (Benadryl) Related Data Home Medications Medication Instructions Recorded Confirmed multivitamin (Multiple Vitamins 1 tablet PO DAILY 10/22/23 11/05/23 tablet) Allergies Allergy/AdvReac Type Severity Reaction Status Date / Time cephalexin [From Keflex] Allergy Unknown Unknown Verified 12/05/23 10:00 diphtheria,pertussis Allergy Unknown Unknown Verified 12/05/23 10:00 (acellular),te [From Boostrix Tdap] erythromycin base Allergy Unknown Unknown Verified 12/05/23 10:00 Review of Systems Review of Systems: CONSTITUTIONAL: Reports malaise, chills, sweats, or fever. EYES: Denies visual changes, redness, or discharge. ENT: Reports rhinorrhea, congestion, sinus pain, no otalgia and no present sore throat.. CARDIOVASCULAR: Denies chest pain, palpitations, or edema. RESPIRATORY: Reports dry cough.? Denies dyspnea. GASTROINTESTINAL: Denies abdominal pain,positive for nausea,no vomiting, diarrhea SKIN: Denies rash or itching. MUSCULOSKELETAL: Denies myalgia. NEUROLOGIC: Reports frontalheadache.light sensitivity All systems reviewed & are unremarkable except as noted in HPI and below PMFSH Past Medical History Medical History (Updated 12/06/23 @ 11:23 by Marielle Patel NP) Acid reflux Ulcerative colitis Ulcerative proctitis Surgical History Surgical History (Updated 12/06/23 @ 11:23 by Marielle Patel NP) H/O sinus surgery Family History Family History Father Alive and well Mother Alive and well Social History Social History (Updated 12/06/23 @ 11:24 by Marielle Patel NP) Smoking status: Former smoker Tobacco type: cigarettes Second hand tobacco smoke exposure: No Smoking end date: 03/04/11 Alcohol intake: never Substance use: never Substance use type: does not use Living arrangements: with family Occupation/Education: occupation Gender identity (if verbalized by the patient): Male Spiritual care concerns: No Comments At time of signature, agree with nursing past medical, surgical, social and family history. There is no relevant family history pertinent to the presenting complaint Exam Narrative: GENERAL: Well-appearing, well-nourished, and in no acute distress. HEAD: Normocephalic EYES: PERRLA, conjunctivae clear ENT: Nares clear, turbinates edematous and erythematous, clear discharge sinus pressure and frontal headache. Mucous membranes moist. TM pearly batista with dull light reflex bilaterally; no tragal tenderness. Oropharynx erythematous without lesions. Tonsils not enlarged and without exudate, no drooling, no hoarseness, no trismus, uvula midline. NECK: Supple. No lymphadenopathy CHEST: Clear to auscultation, breath sounds equal. No wheezing, rhonchi, rales, or stridor. No respiratory distress, speaks in
== END 2023-12-05 11:28 | disposition home or self-care (01) ==
PROVIDERS: Emergency Provider Registered Nurse; PCP Family Medicine
DX: J06.9 Acute upper respiratory infection, unspecified (principal); Z20.822 Contact with and (suspected) exposure to COVID-19; Z87.891 Personal history of nicotine dependence; K21.9 Gastro-esophageal reflux disease without esophagitis
CPT/HCPCS: 87426; 87804; 99213; G0463

== ENCOUNTER 2023-12-28 09:34 | Emergency (ER) | payer OTHER, SELFPAY ==
[2023-12-28 09:39] VITALS: BP 140/67; PULSE 97; RESP 16; TEMP 36.5; O2SAT 100
--- NOTE | 2023-12-28 09:58 | ED.EAR ---
HPI - Ear Problem General Chief complaint: Ear Stated complaint: Left Ear Pain Time Seen by Provider: 12/28/23 09:53 Source: patient, RN notes reviewed and old records reviewed Mode of arrival: ambulatory Limitations: no limitations History of Present Illness HPI Narrative: 33 year old male presents to [facility] care with complaints of sinus congestion with left ear pain for past week. Patient reports that pain in his ear is worse when swallowing and chewing. Patient reports that he has not had a fever and has been taking Tylenol for his discomfort. Patient reports no known ill contacts. MD Complaint: ear pain and other (sinus congestion increased ear pain with swallowing.,) Location: left ear Duration: constant Severity: mild Exacerbating factors: chewing and other (swallowing) Discharge from ear: Reports no Treatment prior to arrival: other (Tylenol) Related Data Home Medications Medication Instructions Recorded Confirmed multivitamin (Multiple Vitamins 1 tablet PO DAILY 10/22/23 12/28/23 tablet) mesalamine 1,000 mg rectal 1,000 mg RECTAL QHS 12/28/23 12/28/23 suppository Allergies Allergy/AdvReac Type Severity Reaction Status Date / Time diphtheria,pertussis Allergy Severe Difficulty Verified 12/28/23 10:03 (acellular),te Breathing [From Boostrix Tdap] cephalexin [From Keflex] Allergy Intermediate Hives Verified 12/28/23 10:03 erythromycin base Allergy Intermediate Hives Verified 12/28/23 10:03 Review of Systems Review of Systems: CONSTITUTIONAL: Denies fever, chills, or sweats.Reports left ear pain increases when swallowing and chewing and some sinus congestion CARDIOVASCULAR: Denies chest pain, palpitations, or edema. RESPIRATORY: Denies cough or dyspnea. GASTROINTESTINAL: Denies abdominal pain, nausea, vomiting, or diarrhea. GENITOURINARY: Reports no dysuria, frequency, urgency. Denies flank pain or hematuria. SKIN: Denies rash or itching. MUSCULOSKELETAL: Denies back pain or myalgia. Denies CVA tenderness NEUROLOGIC: Denies headache All systems reviewed & are unremarkable except as noted in HPI and below PMFSH Past Medical History Medical History Acid reflux Ulcerative colitis Ulcerative proctitis Surgical History Surgical History H/O sinus surgery Family History Family History Father Alive and well Mother Alive and well Social History Social History Smoking status: Former smoker Tobacco type: cigarettes Second hand tobacco smoke exposure: No Smoking end date: 03/04/11 Alcohol intake: never Substance use: never Substance use type: does not use Living arrangements: with family Occupation/Education: occupation Gender identity (if verbalized by the patient): Male Spiritual care concerns: No Comments At time of signature, agree with nursing past medical, surgical, social and family history. There is no relevant family history pertinent to the presenting complaint Exam Narrative: GENERAL: Well-appearing, well-nourished, and in no acute distress. HEAD: Normocephalic, atraumatic. NECK: Supple. no lymphadenopathy, throat red with post nasal drainage present, Left ear with fluid noted no redness of TM or canal CHEST: Clear to auscultation. No respiratory distress. no cough noted SAO2 100% on room air HEART: Regular rate and rhythm. No murmur heard. Normal peripheral pulses. ABDOMEN: Soft, nontender, nondistended, normal active bowel sounds. No CVA tenderness EXTREMITIES: Normal range of motion. No edema. SKIN: Warm, dry, no rash. NEURO: No focal deficits. Alert and oriented x3. Course Course Emergency Course: Patient is aware of diagnosis, understands and agrees to treatment plan.? Anticipatory guidance given.? Patient agrees to follow-up as directed and is aware of reasons to seek care at the emergency department. Portions of this record may have been created with voice recognition software Level of Care: Express Care Visit Vital Signs Vital signs: Vital Signs Temperature 36.5 C 12/28/23 09:39 Pulse Rate 97 12/28/23 09:39 Respiratory Rate 16 12/28/23 09:39 Blood Pressure 140/67 12/28/23 09:39 Pulse Oximetry 100 12/28/23 09:39 Oxygen Delivery Room Air 12/28/23 09:39 Temperature 36.5 C 12/28/23 09:39 Pulse Rate 97 12/28/23 09:39 Respiratory Rate 16 12/28/23 09:39 Blood Pressure 140/67 12/28/23 09:39 Pulse Oximetry 100 12/28/23 09:39 Oxygen Delivery Room Air 12/28/23 09:39 Reviewed Medical Decision Making Differential Diagnosis Differential Diagnosis: URI, sinus congestion, pharyngitis, strep pharyngitis, acute eustachian tube dysfunction left ear. Medical Records Medical records reviewed: Yes I reviewed the external patient's medical records. Vital Signs Vital Signs: Vital Signs Temperature 36.5 C 12/28/23 09:39 Pulse Rate 97 12/28/23 09:39 Respiratory Rate 16 12/28/23 09:39 Blood Pressure 140/67 12/28/23 09:39 Pulse Oximetry 100 12/28/23 09:39 Oxygen Delivery Room Air 12/28/23 09:39 Temperature 36.5 C 12/28/23 09:39 Pulse Rate 97 12/28/23 09:39 Respiratory Rate 16 12/28/23 09:39 Blood Pressure 140/67 12/28/23 09:39 Pulse Oximetry 100 12/28/23 09:39 Oxygen Delivery Room Air 12/28/23 09:39 Lab Data Lab results reviewed: Yes I reviewed the patient's lab results. Lab results narrative: strep screen negative culture sent Labs: Lab Results 12/28/23 Range/Units 10:25 POC Grp A Strep Screen Negative (Negative) Critical Care Time Critical Care Time Critical Care Time: No Discharge Plan Discharge Clinical Impression: Acute dysfunction of left eustachian tube Patient Disposition: Home, Self-Care Condition: Stable Instructions: Earache (ED) Additional Instructions: Increase fluids especially juices and water [id number] cough and cold medicine of your choice for your symptoms Zyrtec,Claritin or Licha daily Steroids as directed--take with food heat to the face 20-30 minutes 4-6 times a day for pain Salt water gargles, throat lozenges or throat sprays as desired Your strep test today was negative. A throat culture will be sent to the laboratory for further testing. IF the test is positive, you will receive a phone call within 48 hours and an appropriate antibiotic will be initiated at that time. If your symptoms persist, change or worsen significantly before you can contact your personal physician then please, without delay, go to the emergency department for further evaluation. Follow-up with PCP in 7-10 days or sooner if needed Follow up with PCP soon in regards to your blood pressure which is elevated above threshold for referral. Blood pressure above 120/80 may indicate pre-hypertension. Prescriptions: New methylprednisolone [Medrol (Pineda)] 4 mg tablets,dose pack See Rx Instructions .ROUTE .COMPLEX Qty: 21 0RF Rx Instructions: orally per package directions No Action mesalamine 1,000 mg suppository 1,000 mg RECTAL QHS multivitamin [Multiple Vitamins] Tablet 1 tablet PO DAILY dicyclomine 10 mg capsule 10 mg PO TID PRN (Reason: abdominal pain) Qty: 90 3RF Follow-up/Referrals: Carlos Manuel,MD Tad [Primary Care Provider] - Time of Disposition: 10:51 Quality Kerrie Coma Scale Eyes: Open Verbal: Oriented and Alert Motor: Follows Commands [place] Coma Total Score: 15
[2023-12-28 10:28] LABS: EDSTREPNEGPOS1 Negative (Negative)
== END 2023-12-28 10:52 | disposition home or self-care (01) ==
PROVIDERS: Emergency Provider Registered Nurse; PCP Family Medicine
DX: H69.92 Unspecified Eustachian tube disorder, left ear (principal); Z87.891 Personal history of nicotine dependence; K21.9 Gastro-esophageal reflux disease without esophagitis
CPT/HCPCS: 87081; 87880; 99213; G0463

== ENCOUNTER 2024-02-22 10:21 | Emergency (ER) | payer OTHER, SELFPAY ==
[2024-02-22 10:34] VITALS: BP 136/64; PULSE 95; RESP 16; TEMP 36.8; O2SAT 100
--- NOTE | 2024-02-22 11:20 | ED_ITS ---
HPI - URI/Sore Throat General Chief Complaint: Upper Respiratory Infection Stated Complaint: Sore Throat/Congestion Time Seen by Provider: 02/22/24 11:10 Source: patient, RN notes reviewed and old records reviewed Mode of arrival: ambulatory Limitations: no limitations History of Present Illness HPI Narrative: 33 year old male with complaint of sinus congestion with sinus pressure and sore throat for the past 2 days. Patient reports that daughter recently diagnosed with pneumonia and is also ill. Patient reports some dry cough with no shortness of breath or any known fevers.Patient reports that he has been taking Zicam and also DayQuil for his symptoms. MD elicited complaint: cough, sore throat, rhinorrhea, nasal congestion and sinus pain Pertinent past history: sinusitis and other (sinus surgery) Pain scale (0-10): 3 Treatments prior to arrival: other (Zicam and DayQuil) Related Data Home Medications ?Medication ?Instructions ?Recorded ?Confirmed ?Last Taken ?Type multivitamin (Multiple Vitamins 1 tablet PO DAILY 10/22/23 12/28/23 Unknown History tablet) Allergies Allergy/AdvReac Type Severity Reaction Status Date / Time diphtheria,pertussis Allergy Severe Difficulty Verified 02/22/24 11:17 (acellular),te (From Breathing Boostrix Tdap) cephalexin (From Keflex) Allergy Intermediate Hives Verified 02/22/24 11:17 erythromycin base Allergy Intermediate Hives Verified 02/22/24 11:17 Review of Systems Review of Systems: CONSTITUTIONAL: Reports malaise, no chills, sweats, or fever. EYES: Denies visual changes, redness, or discharge. ENT: Reports rhinorrhea, congestion, sinus pain,no otalgia and positive for sore throat. CARDIOVASCULAR: Denies chest pain, palpitations, or edema. RESPIRATORY: Reports cough.? Denies dyspnea. GASTROINTESTINAL: Denies abdominal pain, nausea, vomiting, diarrhea SKIN: Denies rash or itching. MUSCULOSKELETAL: Denies myalgia. NEUROLOGIC: Denies headache. All systems reviewed & are unremarkable except as noted in HPI and below PMFSH Past Medical History Medical History History of sinus problem Ulcerative proctitis Acid reflux Ulcerative colitis Surgical History Surgical History H/O sinus surgery Family History Family History Father Alive and well Mother Alive and well Social History Social History Smoking status: Former smoker Tobacco type: cigarettes Second hand tobacco smoke exposure: No Smoking end date: 03/04/11 Alcohol intake: never Substance use: never Substance use type: does not use Living arrangements: with family Occupation/Education: occupation Gender identity (if verbalized by the patient): Male Spiritual care concerns: No Comments At time of signature, agree with nursing past medical, surgical, social and family history. There is no relevant family history pertinent to the presenting complaint Exam Narrative: GENERAL: Well-appearing, well-nourished, and in no acute distress. HEAD: Normocephalic EYES: PERRLA, conjunctivae clear ENT: Nares clear with redness,, turbinates edematous and erythematous, clear light yellow discharge sinus pressure, Mucous membranes moist. TM pearly batista with dull light reflex bilaterally; no tragal tenderness. Oropharynx erythematous without lesions. Tonsils not enlarged and without exudate, no drooling, no hoarseness, no trismus, uvula midline.post nasal drainage NECK: Supple. No lymphadenopathy CHEST: Clear to auscultation, breath sounds equal. No wheezing, rhonchi, rales, or stridor. No respiratory distress, speaks in full sentences.SAO2 100% on room air HEART: Regular rate and rhythm. No murmur heard. SKIN: Warm, dry, no rash. NEURO: Alert and oriented x3. PSYCH: Normal mood and affect Course Course Emergency Course: Patient is aware of diagnosis, understands and agrees to treatment plan.? Anticipatory guidance given.? Patient agrees to follow-up as directed and is aware of reasons to seek care at the emergency department. Portions of this record may have been created with voice recognition software Level of Care: Express Care Visit Vital Signs Vital signs: Vital Signs Temperature 36.8 C 02/22/24 10:34 Pulse Rate 95 02/22/24 10:34 Respiratory Rate 16 02/22/24 10:34 Blood Pressure 136/64 02/22/24 10:34 Pulse Oximetry 100 02/22/24 10:34 Oxygen Delivery Room Air 02/22/24 10:34 Temperature 36.8 C 02/22/24 10:34 Pulse Rate 95 02/22/24 10:34 Respiratory Rate 16 02/22/24 10:34 Blood Pressure 136/64 02/22/24 10:34 Pulse Oximetry 100 02/22/24 10:34 Oxygen Delivery Room Air 02/22/24 10:34 Reviewed MDM - URI/Sore Throat MDM Narrative Medical decision making narrative: Differential diagnosis considered: Miguel virus, strep pharyngitis, allergic rhinitis, upper respiratory tract infection, sinusitis, rhinosinusitis, nasopharyngitis. viral pharyngitis, otitis media, otitis externa, pneumonia, bronchitis, viral cough syndrome, viral syndrome, and influenza.? Exam findings show no acute concerns or changes; patient is non-toxic appearing and is in no distress.? Patient is appropriate for outpatient treatment and follow-up. Differential Diagnosis Differential diagnosis: Likely upper respiratory infection, sinusitis, viral infection, pharyngitis and other (strep pharyngitis, bacterial sinusitis) Medical Records Attestation: I reviewed the patient's medical records. Lab Data Attestation: I reviewed the patient's lab results. Critical Care Time Critical Care Time Critical Care Time: No Discharge Plan Discharge Clinical Impression: Upper respiratory infection Qualifiers: URI type: unspecified URI Qualified Code(s): J06.9 - Acute upper respiratory infection, unspecified Pharyngitis Qualifiers: Pharyngitis/tonsillitis etiology: unspecified etiology Qualified Code(s): J02.9 - Acute pharyngitis, unspecified Patient Disposition: Home, Self-Care Condition: Stable Instructions: Antibiotic Form, Pharyngitis (ED), Upper Respiratory Infection (ED) Additional Instructions: Increase fluids especially juices and water Zyrtec Claritin or Licha daily Tylenol or ibuprofen for any fever pain heat to the face 20-30 minutes 4-6 times a day for pain Salt water gargles, throat lozenges or throat sprays as desired Antibiotic as directed--finished the medication If your symptoms persist, change or worsen significantly before you can contact your personal physician then please, without delay, go to the emergency department for further evaluation. Follow-up with PCP in 7-10 days or sooner if needed Follow up with PCP soon in regards to your blood pressure which is elevated above threshold for referral. Blood pressure above 120/80 may indicate pre-hyper tension. 136/64 Patient Language: Palauan Prescriptions: New azithromycin 250 mg tablet See Rx Instructions .ROUTE .COMPLEX Qty: 6 0RF Rx Instructions: For 250 mg dose pack: take 500 mg today (day 1), then 250 mg for 4 days (days 2-5) No Action multivitamin [Multiple Vitamins] Tablet 1 tablet PO DAILY mesalamine 1,000 mg suppository See Rx Instructions .ROUTE .COMPLEX Qty: 90 1RF Dose Instruction: INSERT 1 SUPPOSITORY RECTALLY EVERY DAY AT BEDTIME FOR 3 WEEKS Rx Instructions: INSERT 1 SUPPOSITORY RECTALLY EVERY DAY AT BEDTIME FOR 3 WEEKS Follow-up/Referrals: Carlos Manuel,MD Tad [Primary Care Provider] - Time of Disposition: 11:28 Quality Bruno Coma Scale Eyes: Open Verbal: Oriented and Alert Motor: Follows Commands Bruno Coma Total Score: 15
--- OUTSIDE RECORDS SUMMARY | 2024-02-29 13:41 | XMS_ITS | Patient Health Summary ---
Author Organization [facility] Address [address] [place] [address] Care Team Providers Care Monotypist Name Role Phone Unavailable Primary Care Provider Unavailabl e Note from [facility],non-owned Affiliates and Associated Physician Practices is amultiple site organization consisting of ambulatory clinics and hospital sitesin [place], [place], [place] and [place]. This disclosure is being madepursuant to the Care Everywhere program and may not contain all information available regarding this patient. Last updated 17.[facility] Allergies * Erythromycin(Other) * Cephalexin(Other) Medications * Be aware that medications may not be up to date on this document. Alwaysverify current medications with the patient. * mesalamine (CANASA) 1000 MG suppository Insert 1 suppository into the rectum at bedtime Active Problems No known active problems Social History Tobacco Use Types Packs/Day Years Used Date Smoking Tobacco: Never Smokeless Tobacco: Never Alcohol Use Standard Drinks/Week Comments Never 0 (1 standard drink = 0.6 oz pur e alcohol) AUDIT-C Answer Date Recorded Frequency of Alcohol Consumption Never 04/09/2019 Average Number of Drinks Not on file 020 Frequency of Binge Drinking Not on file 08/2019 Sex and Gender Information Value Date Recorded Sex Assigned at Not on file Gender Identity Not on file Sexual Orientation Not on file Last Filed Vital Signs Vital Sign Reading Time Taken Comments Blood Pressure 122/70 04/09/2019 11:24 AM ANTISQUEAK FILLER Pulse 99 04/09/2019 11:24 AM ANTISQUEAK FILLER Temperature 37.7 ??C (99.8 ??F) 04/09/2019 11:[address] Respiratory Rate 16 04/09/2019 11:24 AM ANTISQUEAK FILLER Oxygen Saturation 98% 04/09/2019 11:24 AM ANTISQUEAK FILLER Inhaled Oxygen Concentration - - Weight 77.1 kg (170 lb) 04/09/2019 11:24 AM ANTISQUEAK FILLER Height 177.8 cm (5' 10 ) 04/09/2019 11:24 AM ANTISQUEAK FILLER Body Mass Index 24.39 04/09/2019 11:24 AM ANTISQUEAK FILLER Procedures * INFLUENZA A+B - POINT OF CARE (AMB)(Performed 04/09/2019) Performed for Influenza B Results * (ABNORMAL) INFLUENZA A+B - POINT OF CARE (AMB) (04/09/2019) Influenza A Antigen Rapid Negative Negative Influenza B Antigen Rapid Positive(A) Negative Influenza Internal Control positive NEGATIVE - POSITIVE Influenza Lot Number [id number] Influenza Expiration Date 01/14/2021 Other NASOPHARYNGEAL SWAB / Unknown 04/09/2019 Vivi Foster TECHNICAL SALES SUPPORT MANAGER-[employer] LAB - POINT OF CARE ORDERABLES
--- OUTSIDE RECORDS SUMMARY | 2024-02-29 13:41 | XMS_ITS | Clinical Summary ---
Author Organization [facility] Address [address] [place] [address] Care Team Providers Care Hog Cutter Name Role Phone Unavailable Primary Care Provider Unavailabl e Source Comments [facility],non-owned Affiliates and Associated Physician Practices is amultiple site organization consisting of ambulatory clinics and hospital sitesin [place], [place], [place] and [place]. This disclosure is being madepursuant to the Care Everywhere program and may not contain all information available regarding this patient. Last updated 17.[facility] Allergies Active Allergy Reactions Criticality Noted Date Comments Erythromycin Other 04/09/2019 As an Cephalexin Other 04/09/2019 As an Medications * Be aware that medications may not be up to date on this document. Alwaysverify current medications with the patient. Medication Sig Dispensed Refills Start Date End Date Status mesalamine (CANASA) 1000 MG suppositoryIndicatio ns:Influenza B Insert 1 suppository into the rectum at bedtime Active Active Problems No known active problems Social [...] Comments Blood Pressure 122/70 04/09/2019 11:24 AM COSTUME DIRECTOR Pulse 99 04/09/2019 11:24 AM COSTUME DIRECTOR Temperature 37.7 ??C (99.8 ??F) 04/09/2019 11:[address] Respiratory Rate 16 04/09/2019 11:24 AM COSTUME DIRECTOR Oxygen Saturation 98% 04/09/2019 11:24 AM COSTUME DIRECTOR Inhaled Oxygen Concentration - - Weight 77.1 kg (170 lb) 04/09/2019 11:24 AM COSTUME DIRECTOR Height 177.8 cm (5' 10 ) 04/09/2019 11:24 AM COSTUME DIRECTOR Body Mass Index 24.39 04/09/2019 11:24 AM COSTUME DIRECTOR Plan of Treatment Health Maintenance Due Date Last Done Comments HIV SCREENING 2005 HEPATITIS C SCREENING 09/01/2008 DTAP/TDAP/TD VACCINES (1 - Tdap) 2009 HEPATITIS B VACCINE (1 of 3 - 19+ 3-dose series) 2009 DEPRESSION SCREENING 03/04/2023 COVID-19 VACCINE (1 - 2023-2 5 season) 2023 INFLUENZA VACCINE (#1) 2023 ZOSTER VACCINE (1 of 2) 2040 HIB VACCINE Aged Out No longer eligi ble based on patient's age to complete this topic HPV VACCINE Aged Out No longer eligi ble based on patient's age to complete this topic MENINGOCOCCAL VACCINE Aged Out No niraj linda eligible based on patient's age to complete this topic PNEUMOCOCCAL VACCINE Aged Out No long er eligible based on patient's age to complete this topic
--- OUTSIDE RECORDS SUMMARY | 2024-02-29 13:41 | XMS_ITS | Encounter Summary ---
Author Organization [facility] Address [address] [place] [address]. [place], [place] [id number] [place] [id number] Care Team Providers Care High [employer] Mathematics Teacher Name Role Phone Unavailable Primary Care Provider Unavailabl e Encounter Details Date Type Department Care Team (Late st Contact Info) Description 07/12/2009 Abstract [facility] Emergency Room [address] [place] [address] , Sahil Albright MD Social History Tobacco Use Types Packs/Day Years Used Date Smoking Tobacco: Never Assessed Sex and Gender Information Value Date Recorded Sex Assigned at Not on file Legal Sex Male 4:33 PM CDT Gender Identity Not on file Sexual Orientation Not on file documented as of this encounter Plan of Treatment Not on file documented as of this encounter Visit Diagnoses Not on filedocumented in this encounter
--- OUTSIDE RECORDS SUMMARY | 2024-02-29 13:41 | XMS_ITS | Referral Summary ---
Author Organization [facility] [email or web address] Address [address] [place] [address] Care Team Providers Care Chronometer Repairer Name Role Phone Unavailable Primary Care Provider Unavailabl e Source Comments [facility],non-owned Affiliates and Associated Physician Practices is amultiple site organization consisting of ambulatory clinics and hospital sitesin [place], [place], [place] and [place]. This disclosure is being madepursuant to the Care Everywhere program and may not contain all information available regarding this patient. Last updated 17.[facility] [email or web address] Allergies Active Allergy Reactions Criticality Noted Date [...] Comments Blood Pressure 122/70 04/09/2019 11:24 AM LAUNDRY WASHER Pulse 99 04/09/2019 11:24 AM LAUNDRY WASHER Temperature 37.7 ??C (99.8 ??F) 04/09/2019 11:[address] Respiratory Rate 16 04/09/2019 11:24 AM LAUNDRY WASHER Oxygen Saturation 98% 04/09/2019 11:24 AM LAUNDRY WASHER Inhaled Oxygen Concentration - - Weight 77.1 kg (170 lb) 04/09/2019 11:24 AM LAUNDRY WASHER Height 177.8 cm (5' 10 ) 04/09/2019 11:24 AM LAUNDRY WASHER Body Mass Index 24.39 04/09/2019 11:24 AM LAUNDRY WASHER Plan of Treatment Not on file
--- OUTSIDE RECORDS SUMMARY | 2024-02-29 13:41 | XMS_ITS | Encounter Summary ---
Author Organization [facility] Healthcare Address [address] [place] [address] Care Team Providers Care Snap Shearer Name Role Phone Tad Horowitz MD Unavailable [phone] Tad Horowitz MD Primary Care Provider [phone] Reason for Visit * Reason Comments Sore Throat Sore throat and left ear pain, sx's started yesterday, no exp, otc tylenol. Encounter Details Date Type Department Care Team (Late st Contact Info) Description 08/29/2023 11:15 AM CDT Office Visit 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 Gender Identity Male 12/01/2020 1:31 PM CDT Sexual Orientation Straight 12/01/2020 1: 31 PM CDT documented as of this encounter Last Filed Vital Signs Vital Sign Reading Time Taken Comments Blood Pressure 118/78 08/29/2023 11:21 AM CDT Pulse 86 08/29/2023 11:21 AM CDT Temperature 36.6 ??C (97.9 ??F) 08/29/2023 11:21 AM C DT Respiratory Rate 16 08/29/2023 11:21 AM CDT Oxygen Saturation 98% 08/29/2023 11:21 AM CDT Inhaled Oxygen Concentration - - Weight 85.3 kg (188 lb) 08/29/2023 11:21 AM CDT Height 175.3 cm (5' 9 ) 08/29/2023 11:21 AM CDT Body Mass Index 27.76 08/29/2023 11:21 AM CDT documented in this encounter Patient Instructions * Patient Instructions* Marilyn Ennis NP - 08/29/2023 11:15 AM CDT The treatment for ear infections (otitis media) may include any of the following: Take antibiotics as prescribed until they are gone. Take Tylenol or Motrin as directed for fever and/or discomfort. A warm (not hot) heating pad held over the ear can also help relieve the pain from the earache. Youshould use a thin cloth such as a dry washcloth between your skin and the heating pad. Follow up with your Primary Care Physician in 2 weeks for ear recheck or sooner if symptoms worsen or are not improving as planned. Recommendations and Information The main treatment for respiratory infections of any kind is to rest, eat healthy, and drink plentyof fluids. Cold symptoms will likely last anywhere from 7-10 days with symptoms feeling much worse on days 3-5. Antibiotic medications do not cure a cold nor do antibiotic medications help to shortenthe symptoms of viral illness. The following may help you feel better: Over the counter antihistamine such as loratadine (Claritin) or cetirizine (Zyrtec) to reduce secretions. The D formula includes pseudoephedrine and can be helpful as a decongestant but should not be used if you have a history of high blood pressure. Tessalon if prescribed for cough. Albuterol inhaler if prescribed for shortness of breath, cough, or wheezing. Use you albuterol inhaler or nebulizer every 4 hours for the next 48 hours, then every 4-6 hours as needed. Don't smoke and avoid second hand smoke. Suck on cough drops or hard candies to soothe a dry or sore throat. Cough drops won't stop your cough, but they may make your throat feel better. Over the counter loratadine (Claritin) or cetirizine (Zyrtec) to reduce secretions. Mucinex to thin secretions Breathe moist air from a humidifier, a hot shower, or a sink filled with hot water. The heat and moisture can help keep mucus in your airways moist so you can cough it out easily. Use nonprescription medicine, such as acetaminophen, ibuprofen, or aspirin, to relieve fever and body aches. Don't give aspirin to anyone younger than age 20. Rest more than usual. Drink plenty of fluids so that you do not become dehydrated and to keep mucous thin. Use an pkxy-wym-ahkwbyj cough medicine such as Delsym or Robitussin. (Cough medicines may not be safe for young children or for people who have certain health problems.) Cough suppressants may help you to stop coughing. Expectorants, such as Mucinex, can help you bring up mucus when you cough. Follow up with primary care physician in 1 week, or sooner if symptoms worsen. If you experience worsening shortness of breath or fever that do not improve with Tylenol/Motrin, go to the Emergency Room. documented in this encounter Ordered Prescriptions Prescription Sig Dispense Quantity Refills Last Filled Start Date End Date amoxicillin (AMOXIL) 875 mg tabletIndications: Acute serous otitis media of left ear, recurrence not specified Take 1 tablet (875 mg total) by mouth 2 (two) times a day for 10 days 20 tablet 08/29/2023 09/08/2023 documented in this encounter Progress Notes * Marilyn Ennis NP - 08/29/2023 11:15 AM CDT Images from the original note were not included. Subjective/Objective Patient ID: Shen Thomas is a 32 y.o. male. Chief Complaint Sore Throat (Sore throat and left ear pain, sx's started yesterday, no exp, otc tylenol.) Patient presents to convenient care for sore throat and left ear pain x1 day. He denies any known exposure to COVID or strep. He has been taking OTC Tylenol for his symptoms. He denies any fevers or difficulty swallowing. Sore Throat Review of Systems HENT: Positive for sore throat. All systems reviewed and are negative or non contributory for this patient's presentation today other than as stated in the HPI. Physical Exam Vitals reviewed. Constitutional: General: He is not in acute distress. Appearance: Normal appearance. He is well-developed. He is not ill-appearing. HENT: Head: Normocephalic. Right Ear: Tympanic membrane, ear canal and external ear normal. Left Ear: Ear canal and external ear normal. A middle ear effusion is present. Tympanic membrane iserythematous. Nose: No congestion or rhinorrhea. Right Sinus: No maxillary sinus tenderness or frontal sinus tenderness. Left Sinus: No maxillary sinus tenderness or frontal sinus tenderness. Mouth/Throat: Lips: [place]. Mouth: Mucous membranes are moist. Pharynx: Oropharynx is clear. Posterior oropharyngeal erythema present. Eyes: General: Right eye: No discharge. Left eye: No discharge. Conjunctiva/sclera: Conjunctivae normal. Cardiovascular: Rate and Rhythm: Normal rate and regular rhythm. Pulmonary: Effort: Pulmonary effort is normal. No respiratory distress. Breath sounds: Normal breath sounds and air entry. Musculoskeletal: General: Normal range of motion. Cervical back: Neck supple. Lymphadenopathy: Head: Right side of head: No tonsillar adenopathy. Left side of head: No tonsillar adenopathy. Cervical: No cervical adenopathy. Skin: General: Skin is warm and dry. Findings: No rash. Neurological: Mental Status: He is alert and oriented to person, place, and time. Mental status is at baseline. Psychiatric: Attention and Perception: Attention normal. Mood and Affect: Mood normal. Behavior: Behavior normal. Behavior is cooperative. Thought Content: Thought content normal. Judgment: Judgment normal. Vitals: 08/29/23 1121 BP: 118/78 Pulse: 86 Resp: 16 Temp: 36.6 ??C (97.9 ??F) TempSrc: Temporal SpO2: 98% Weight: 85.3 kg (188 lb) Height: 175.3 cm (5' 9 ) Assessment/Plan Diagnoses and all orders for this visit: Acute serous otitis media of left ear, recurrence not specified (Primary) - amoxicillin (AMOXIL) 875 mg tablet; Take 1 tablet (875 mg total) by mouth 2 (two) times a day for10 days Amoxicillin as prescribed Tylenol/Motrin as needed for pain Apply warm compresses to ear as needed for pain Return to clinic or follow-up with PCP if symptoms persist after completion of antibiotics or sooner if symptoms worsen Sore throat - POCT rapid strep A Rapid strep negative Viral URI with cough - COVID-19 POC COVID negative Discussed with patient that symptoms are likely viral Reviewed OTC medications to help with symptoms Drink plenty of fluids to stay hydrated Get plenty of rest Return to clinic or follow up with PCP if symptoms persist longer than 10 days or sooner if symptoms worsen Go to the ER if you experience chest pain, shortness of breath, or fevers that do not improve with antipyretics Recent Results (from the past 4 hour(s)) COVID-19 POC Collection Time: 08/29/23 11:32 AM Specimen: Nasal Result Value Ref Range COVID-19 Ag POC (BD Veritor) Presumptive Negative Presumptive Negative, Invalid POCT rapid strep A Collection Time: 08/29/23 11:44 AM Result Value Ref Range Rapid Strep A, POC Negative Negative Patient Education: Disposition Treatment plan including expectations, follow up, and return precautions discussed with patient/parent, verbalizes understanding. Medication dosage, use, and potential adverse reactions discussed with patient/parent. Advised to follow up with PCP if symptoms do not resolve as expected or sooner if condition worsens. Signs/symptoms warranting ER evaluation reviewed. Patient and/or guardian was given an opportunity to ask questions, questions answered. Marilyn Ennis NP documented in this encounter Plan of Treatment Not on file documented as of this encounter Procedures Procedure Name Priority Date/Time Associated Diagnosis Comments POCT RAPID STREP Routine 08/29/2023 11:4 4 AM CDT Sore throat COVID-19 POC Routine 08/29/2023 11:32 AM CDT Viral URI with cough documented in this encounter Results * POCT rapid strep A (08/29/2023 11:44 AM CDT) Rapid Strep A, POC Negative Negative Swab 08/29/2023 11:4 4 AM CDT us Marilyn Ennis ASSISTANT [employer] SUPERINTENDENT POINT OF CARE TEST ORDERABLES Fi nal Result * COVID-19 POC (08/29/2023 11:32 AM CDT) COVID-19 Ag POC (BD Veritor) Presumptive Negative Presumptive Negative, Invalid [facility] Nasal 08/29/2023 11:3 2 AM CDT us Marilyn Ennis ASSISTANT [employer] SUPERINTENDENT POINT OF CARE TEST ORDERABLES Fi nal Result [facility] [address] [place] [id number] documented in this encounter Visit Diagnoses Diagnosis Acute serous otitis media of left ear, recurrence not specified- Primary Sore throat Acute pharyngitis Viral URI with cough documented in this encounter Historical Medications * This list may reflect changes made after this encounter. levocetirizine (XYZAL) 5 mg tablet Take 1 tablet (5 mg total) by mouth daily 05/27/2023 added in this encounter Additional Health Concerns Infection Onset Date Last Indicated Resolved Time COVID: Suspected 08/29/2023 08/29/2023 08/29/2023 11:48 AM CDT documented as of this encounter Care Teams Snap Shearer Relationship Specialty Start Date End Date Tad Horowitz MD [address] [facility] [place] [address] PCP - General 05/28/21 Tad Horowitz MD [address] [place] [address] Family Medicine 12/01/20 documented as of this encounter
--- OUTSIDE RECORDS SUMMARY | 2024-02-29 13:41 | XMS_ITS | Clinical Summary ---
Author Organization [facility] Virtual Care Address [address] [place] [phone] Phone Care Team Providers Care Textile Dyer Name Role Phone Tad Horowitz MD Unavailable [phone] Tad Horowitz MD Primary Care Provider Allergies Active Allergy Reactions Criticality Noted Date Comments Diph,Pertuss(Acel),Tet Vac(Pf) Hives Medium 12/01 Diphth,Pertus(Acell),Tetanus Anaphylaxis High 2020 Erythromycin Rash Medium 06/29/2020 Erythromycin Hives Medium 12/01/2020 Cephalexin Rash Medium 06/29/2020 Cephalexin Hives Medium 12/01/2020 Medications ondansetron (ZOFRAN) 4 mg tablet Take 1 tablet (4 mg total) by mouth every 6 (six) hours 12 tablet 2 Active Additional Information Patient not taking.Reported on 05/05/2022 fluticasone propionate (FLONASE) 50 mcg/actuation nasal spray SPRAY 2 SPRAYS INTO EACH NOSTRIL DAILY 3 Active mesalamine (CANASA) 1,000 mg suppository 3 Active triamcinolone (KENALOG) 0.1 % creamIndications :Tick bite, unspecified site, initial encounter Apply topically 3 (three) times a day for 10 days 30 g 3 Active Lialda 1.2 gram EC tablet TAKE 4 TABETS BY MOUTH DAILY 3 Active methylPREDNISolo ne (Medrol, Pineda,) 4 mg DosepackIndicati ons:Acute sinusitis, recurrence not specified, unspecified location follow package directions 1 packet 4 Active Additional Information Patient not taking.Reported on 08/29/2023 levocetirizine (XYZAL) 5 mg tablet Take 1 tablet (5 mg total) by mouth daily 4 Active Active Problems No known active problems Surgical History Surgery Date Site/Laterality Comments SINUS SURGERY 12/02/2021 - 01/01/2022 Medical History Medical History Date Comments Ulcerative colitis (HCC) GERD (gastroesophageal reflux disease) No pertinent past medical history Family History Medical History Relation Name Comments Hypertension Father Hypertension Mother Relation Name Status Comments Father Alive Mother Alive Social History Tobacco Use Types Packs/Day Years Used Date Smoking Tobacco: Former Cigarettes Smokeless Tobacco: Never Personal Safety Answer Date Recorded Getting School Help Needed Not on file 04/21 Sex and Gender Information Value Date Recorded Sex Assigned at Not on file 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 Gender Identity Male 12/01/2020 1:31 PM CDT Sexual Orientation Straight 12/01/2020 1: 31 PM CDT Obstetrics History Last Filed Vital Signs Vital Sign Reading [...] Mass Index 27.76 08/29/2023 11:21 AM CDT Plan of Treatment Health Maintenance Due Date Last Done Comments Depression Screening 1990 Hepatitis C Screening 1990 Varicella Vaccines (1 of 2 - 13+ 2-dose series) 09/07/2003 Regular Well Visit/Exam 18-64 2008 DTaP/Tdap/Td Vaccine (7 - Td or Tdap) 09/21/2015 09/20/2005, 10/10/1995, 09/01/1992, Additional history exists Influenza Vaccine (#1) 2023 HPV Vaccines Aged Out No longer eligi ble based on patient's age to complete this topic Pneumococcal vaccine <65 Aged Out No longer eligible based on patient's age to complete this topic Insurance [facility] [employer] [facility] HMO/PPO Address[place] [address] [address] [place] [address] [facility] [employer] HMO/PPO Address: [place] [address] Care Teams Textile Dyer Relationship Specialty Start Date End Date Tad Horowitz MD [address] [place] [address] PCP - General 05/28/21 Tad Horowitz MD [address] [facility] [facility] [place], [place] [id number] Family Medicine 12/01/20
--- OUTSIDE RECORDS SUMMARY | 2024-02-29 13:41 | XMS_ITS | Encounter Summary ---
Author Organization [facility] Address [address] [facility] [address] [place] [id number] Care Team Providers Care Cotton Stomper Name Role Phone Tad Horowitz MD Unavailable [phone] Tad Horowitz MD Primary Care Provider [phone] Reason for Visit * Reason Comments Insect Bite Tick bites on legs, chest. Bites noticed 2 days ago. He saw the small ticks while in the shower.He has used alcohol and calamine lotion. 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 Gender Identity Male 12/01/2020 1:31 PM CDT Sexual Orientation Straight 12/01/2020 1: 31 PM CDT documented as of this encounter Last Filed Vital Signs Vital Sign Reading Time Taken Comments Blood Pressure 112/80 11/05/2022 9:22 AM CDT Pulse 99 11/05/2022 9:22 AM CDT Temperature 36.9 ??C (98.4 ??F) 11/05/2022 9:22 AM CD T Respiratory Rate 16 11/05/2022 9:22 AM CDT Oxygen Saturation 97% 11/05/2022 9:22 AM CDT Inhaled Oxygen Concentration - - Weight 83.9 kg (185 lb) 11/05/2022 9:22 AM CDT Height 175.3 cm (5' 9 ) 11/05/2022 9:22 AM CDT Body Mass Index 27.32 11/05/2022 9:22 AM CDT documented in this encounter Patient Instructions * Patient Instructions* Rubia Thomason NP - 11/05/2022 9:15 AM CDT Images from the original note were not included. Tick Bite WHAT YOU NEED TO KNOW: Ticks need to be removed quickly. Most tick bites are not dangerous, but ticks can pass disease or infection when they bite. Diseases include Lyme disease, babesiosis, tularemia, and [place] Spotted Fever. Signs and symptoms may develop weeks or even months after a bite. Some may happen right away, such as redness, pain, itching, and swelling near the bite area. Watch for a fever, rash, body aches, or breathing problems. These may be symptoms of a serious disease that needs to be treatedquickly. DISCHARGE INSTRUCTIONS: Return to the emergency department if: You have trouble walking or moving your legs. You have joint pain, muscle pain, or muscle weakness within 1 month of a tick bite. You have a fever, chills, headache, or rash. Call your doctor if: You cannot remove the tick. The tick's head is stuck in your skin. You have questions or concerns about your condition or care. Medicines: Medicines help decrease pain, redness, itching, and swelling. You may also need medicine to preventor fight a bacterial infection. These medicines may be given as a cream, lotion, or pill. Take your medicine as directed. Contact your healthcare provider if you think your medicine is not helping or if you have side effects. Tell your provider if you are allergic to any medicine. Keep a list of the medicines, vitamins, and herbs you take. Include the amounts, and when and why you take them. Bring the list or the pill bottles to follow-up visits. Carry your medicine list with you in case of an emergency. How to remove a tick: Remove the tick as soon as possible to help prevent disease or infection. Youare less likely to get sick from a tick bite if you remove the tick within 24 hours. Do not use petroleum jelly, nail malian, rubbing alcohol, or heat. These do not work and may be dangerous. Do the f ollowing to remove a tick: First, try a soapy cotton ball. Soak a cotton ball in liquid soap. Cover the tick with the cotton ball for 30 seconds. The tick may come off with the cotton ball when you pull it away. Use tweezers if the soapy cotton ball does not work. Grasp the tick as close to your skin as possible. Pull the tick straight up and out. Do not touch the tick with your bare hands. Do not twist or jerk the tick suddenly, because this may break off the tick's head or mouth parts. Do not leave any part of the tick in your skin. Do not crush or squeeze the tick since its body may be infected with germs. Flush the tick down thetoilet. After the tick is removed, clean the area of the bite with rubbing alcohol. Then wash your hands with soap and water. Apply ice on your bite for 15 to 20 minutes every hour or as directed. Use an ice pack, or put crushed ice in a plastic bag. Cover it with a towel before you apply it to your skin. Ice helps prevent tissue damage and decreases swelling and pain. Prevent a tick bite: Ticks live in areas covered by brush and grass. They may even be found in yourlawn if you live in certain areas. Outdoor pets can carry ticks inside the house. Ticks can grab onto you or your clothes when you walk by grass or brush. If you go into areas that contain many trees, tall grasses, and underbrush, do the following: Wear light colored pants and a long-sleeved shirt. Tuck your pants into your socks or boots. Tuck in your shirt. Wear sleeves that fit close to the skin at your wrists and neck. This will help prevent ticks from crawling through gaps in your clothing and onto your skin. Wear a hat in areas with trees. Apply insect repellant on your skin. The insect repellant should contain DEET. Do not put insect repellant on skin that is cut, scratched, or irritated. Always use soap and water to wash the insect repellant off as soon as possible once you are indoors. Do not apply insect repellant on your child'sface or hands. Beckemeyer insect repellant onto your clothes. Use permethrin spray. This spray kills ticks that crawl on your clothing. Be sure to spray the tops of your boots, bottom of pant legs, and sleeve cuffs. As soon as possible, wash and dry clothing in hot water and high heat. Check your clothing, hair, and skin for ticks. Shower within 2 hours of coming indoors. Carefully check the hairline, armpits, neck, and waist. Check your pets and children for ticks. Remove ticks from pets the same way as you remove them from people. Decrease the risk for ticks in your yard. Ticks like to live in shady, moist areas. Mow your lawn regularly to keep the grass short. Trim the grass around birdbaths and fences. Cut branches that are overgrown and take them out of the yard. Clear out leaf piles. Stack firewood in a dry, ulysses area. Follow up with your doctor as directed: Write down your questions so you remember to ask them during your visits. ?? Copyright [employer] 2021 Information is for End User's use only and may not be sold, redistributed or otherwise used for commercial purposes. All illustrations and images included in CareNotes?? are the copyrighted property of [employer]. or [employer] The above information is an educational recruiter only. It is not intended as medical advice for individual conditions or treatments. Talk to your doctor, nurse or pharmacist before following any medical regimen to see if it is safe and effective for you. documented in this encounter Ordered Prescriptions Prescription Sig Dispense Quantity Refills Last Filled Start Date End Date triamcinolone (KENALOG) 0.1 % creamIndications:T ick bite, unspecified site, initial encounter Apply topically 3 (three) times a day for 10 days 30 g 11/05/2022 doxycycline monohydrate (MONODOX) 100 mg capsuleIndications :Tick bite, unspecified site, initial encounter Take 1 capsule (100 mg total) by mouth 2 (two) times a day for 10 days 20 capsule 11/05/2022 3 documented in this encounter Progress Notes * Rubia Thomason, HARMEET - 11/05/2022 9:15 AM CDT Images from the original note were not included. Subjective/Objective Patient ID: Shen Thomas is a 32 y.o. male. Chief Complaint Insect Bite (Tick bites on legs, chest. Bites noticed 2 days ago. He saw the small ticks while in the shower./He has used alcohol and calamine lotion.) Presents to convenient care with complaint of tick bites to right leg, waist band, and chest, onset2 days ago. Patient reports Poppy seed sized bugs and removed them with tape. He reports itching to the site. He is concerned with bull's-eye appearing rash to tick on chest. He has been using alcohol and calamine lotion at sites. Review of Systems Constitutional: Negative. Respiratory: Negative. Cardiovascular: Negative. Skin: Positive for wound (Rash/bite). Physical Exam Eyes: Conjunctiva/sclera: Conjunctivae normal. Cardiovascular: Rate and Rhythm: Normal rate. Pulmonary: Effort: Pulmonary effort is normal. Skin: General: Skin is warm and dry. Neurological: Mental Status: He is alert. Psychiatric: Mood and Affect: Mood normal. Vitals: 11/05/22 0922 BP: 112/80 Pulse: 99 Resp: 16 Temp: 36.9 ??C (98.4 ??F) TempSrc: Temporal SpO2: 97% Weight: 83.9 kg (185 lb) Height: 175.3 cm (5' 9 ) No results found for this or any previous visit (from the past 4 hour(s)). Assessment/Plan Diagnoses and all orders for this visit: Tick bite, unspecified site, initial encounter (Primary) - triamcinolone (KENALOG) 0.1 % cream; Apply topically 3 (three) times a day for 10 days - doxycycline monohydrate (MONODOX) 100 mg capsule; Take 1 capsule (100 mg total) by mouth 2 (two) times a day for 10 days Patient Education: Tick Bite WHAT YOU NEED TO KNOW: Ticks need to be removed quickly. Most tick bites are not dangerous, but ticks can pass disease or infection when they bite. Diseases include Lyme disease, babesiosis, tularemia, and [place] Spotted Fever. Signs and symptoms may develop weeks or even months after a bite. Some may happen right away, such as redness, pain, itching, and swelling near the bite area. Watch for a fever, rash, body aches, or breathing problems. These may be symptoms of a serious disease that needs to be treatedquickly. DISCHARGE INSTRUCTIONS: Return to the emergency department if: You have trouble walking or moving your legs. You have joint pain, muscle pain, or muscle weakness within 1 month of a tick bite. You have a fever, chills, headache, or rash. Call your doctor if: You cannot remove the tick. The tick's head is stuck in your skin. You have questions or concerns about your condition or care. Medicines: Medicines help decrease pain, redness, itching, and swelling. You may also need medicine to preventor fight a bacterial infection. These medicines may be given as a cream, lotion, or pill. Take your medicine as directed. Contact your healthcare provider if you think your medicine is not helping or if you have side effects. Tell your provider if you are allergic to any medicine. Keep a list of the medicines, vitamins, and herbs you take. Include the amounts, and when and why you take them. Bring the list or the pill bottles to follow-up visits. Carry your medicine list with you in case of an emergency. How to remove a tick: Remove the tick as soon as possible to help prevent disease or infection. Youare less likely to get sick from a tick bite if you remove the tick within 24 hours. Do not use petroleum jelly, nail malian, rubbing alcohol, or heat. These do not work and may be dangerous. Do the f ollowing to remove a tick: First, try a soapy cotton ball. Soak a cotton ball in liquid soap. Cover the tick with the cotton ball for 30 seconds. The tick may come off with the cotton ball when you pull it away. Use tweezers if the soapy cotton ball does not work. Grasp the tick as close to your skin as possible. Pull the tick straight up and out. Do not touch the tick with your bare hands. Do not twist or jerk the tick suddenly, because this may break off the tick's head or mouth parts. Do not leave any part of the tick in your skin. Do not crush or squeeze the tick since its body may be infected with germs. Flush the tick down thetoilet. After the tick is removed, clean the area of the bite with rubbing alcohol. Then wash your hands with soap and water. Apply ice on your bite for 15 to 20 minutes every hour or as directed. Use an ice pack, or put crushed ice in a plastic bag. Cover it with a towel before you apply it to your skin. Ice helps prevent tissue damage and decreases swelling and pain. Prevent a tick bite: Ticks live in areas covered by brush and grass. They may even be found in yourlawn if you live in certain areas. Outdoor pets can carry ticks inside the house. Ticks can grab onto you or your clothes when you walk by grass or brush. If you go into areas that contain many trees, tall grasses, and underbrush, do the following: Wear light colored pants and a long-sleeved shirt. Tuck your pants into your socks or boots. Tuck in your shirt. Wear sleeves that fit close to the skin at your wrists and neck. This will help prevent ticks from crawling through gaps in your clothing and onto your skin. Wear a hat in areas with trees. Apply insect repellant on your skin. The insect repellant should contain DEET. Do not put insect repellant on skin that is cut, scratched, or irritated. Always use soap and water to wash the insect repellant off as soon as possible once you are indoors. Do not apply insect repellant on your child'sface or hands. Beckemeyer insect repellant onto your clothes. Use permethrin spray. This spray kills ticks that crawl on your clothing. Be sure to spray the tops of your boots, bottom of pant legs, and sleeve cuffs. As soon as possible, wash and dry clothing in hot water and high heat. Check your clothing, hair, and skin for ticks. Shower within 2 hours of coming indoors. Carefully check the hairline, armpits, neck, and waist. Check your pets and children for ticks. Remove ticks from pets the same way as you remove them from people. Decrease the risk for ticks in your yard. Ticks like to live in shady, moist areas. Mow your lawn regularly to keep the grass short. Trim the grass around birdbaths and fences. Cut branches that are overgrown and take them out of the yard. Clear out leaf piles. Stack firewood in a dry, ulysses area. Follow up with your doctor as directed: Write down your questions so you remember to ask them during your visits. ?? Copyright [employer] 2021 Information is for End User's use only and may not be sold, redistributed or otherwise used for commercial purposes. All illustrations and images included in CareNotes?? are the copyrighted property of [employer]. or [employer] The above information is an educational recruiter only. It is not intended as medical advice for individual conditions or treatments. Talk to your doctor, nurse or pharmacist before following any medical regimen to see if it is safe and effective for you. Disposition Treatment plan including expectations, follow up, and return precautions discussed with patient/parent, verbalizes understanding. Medication dosage, use, and potential adverse reactions discussed with patient/parent. Advised to follow up with PCP if symptoms do not resolve as expected or sooner if condition worsens. Signs/symptoms warranting ER evaluation reviewed. Patient and/or guardian was given an opportunity to ask questions, questions answered. Rubia Thomason NP documented in this encounter Plan of Treatment Not on file documented as of this encounter Visit Diagnoses Diagnosis Tick bite, unspecified site, initial encounter- Primary documented in this encounter Care Teams Cotton Stomper Relationship Specialty Start Date End Date Tad Horowitz MD [address] [place] [address] PCP - General 05/28/21 Tad Horowitz MD [address] [place] [address] Family Medicine 12/01/20 documented as of this encounter
--- OUTSIDE RECORDS SUMMARY | 2024-02-29 13:41 | XMS_ITS | Referral Summary ---
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 CHO[facility] HMO/PPO Address: [address] [address] [place] [address] [facility] ACCESS CHOICE [facility] CHOICE [facility] HMO/PPO Address: [address] [address] [place] [address] Care Teams Stumper Feller Relationship Specialty Start Date End Date Tad Horowitz MD [address] [place] [address] PCP - General 05/28/21 Tad Horowitz MD [address] [place] [address] Family Medicine 12/01/20
--- OUTSIDE RECORDS SUMMARY | 2024-02-29 13:41 | XMS_ITS | Encounter Summary ---
Author Organization [facility] Healthcare Address [address] [place] [address] Care Team Providers Care E Learning Developer Name Role Phone Tad Horowitz MD Unavailable [phone] Tad Horowitz MD Primary Care Provider [phone] Reason for Visit * Reason Comments Sinus Problem Sinus congestion, si nus pressure, eye drainage this morning and have been itching, sx's started on Saturday, his daughter had an eye issue last week and was given eye drops but was told it was not pink eye, negative at home covid test yesterday, otc tylenol sinus and benadryl. Encounter Details Date Type Department Care Team (Late st Contact Info) Description 04/21/2023 11:30 AM BIOLOGY INTERN Office Visit [facility] [place] [address] [place] [place] [phone] Marilyn Ennis, HAR[place] [address] [place] [address] Acute sinusitis, recurrence not specified, unspecified location (Primary Dx) Social History Tobacco Use Types Packs/Day Years Used Date Smoking Tobacco: Former Cigarettes Smokeless Tobacco: Never Personal Safety Answer Date Recorded Getting School Help Needed Not on file 04/21 Sex and Gender Information Value Date Recorded Sex Assigned at Not on file Legal Sex Male 10:04 PM BIOLOGY INTERN Gender Identity Male 12/01/2020 1:31 PM CDT Sexual Orientation Straight 12/01/2020 1: 31 PM CDT documented as of this encounter Last Filed Vital Signs Vital Sign Reading Time Taken Comments Blood Pressure 118/74 04/21/2023 11:11 AM BIOLOGY INTERN Pulse 94 04/21/2023 11:11 AM BIOLOGY INTERN Temperature 36.7 ??C (98 ??F) 04/21/2023 11:11 AM BIOLOGY INTERN Respiratory Rate 20 04/21/2023 11:11 AM BIOLOGY INTERN Oxygen Saturation 95% 04/21/2023 11:11 AM BIOLOGY INTERN Inhaled Oxygen Concentration - - Weight 83.9 kg (185 lb) 04/21/2023 11:11 AM BIOLOGY INTERN Height 175.3 cm (5' 9 ) 04/21/2023 11:11 AM BIOLOGY INTERN Body Mass Index 27.32 04/21/2023 11:11 AM BIOLOGY INTERN documented in this encounter Patient Instructions * Patient Instructions* Marilyn Ennis NP - 04/21/2023 11:30 AM BIOLOGY INTERN Research has proven that unless you are running a fever or symptoms start to improve then get worseagain, sinus infections are typically viral until days 9-10. Finish the entire antibiotic prescription. Take this with food. Eat yogurt or take probiotic daily while on antibiotics. Symptomatic treatments include: - Over the counter antihistamine such as loratadine (Claritin) or cetirizine (Zyrtec) to reduce secretions. The D formula includes pseudoephedrine and can be helpful as a decongestant but SHOULD NOT BE USED IF YOU HAVE A HISTORY OF HIGH BLOOD PRESSURE. - Coricidin HBP may be taken for congestion if you have a history of high blood pressure. - Topical decongestants are another option such as Afrin. Do not use for more than 3 days as it cancause rebound congestion worse than original congestion. - Tessalon, Dextromethorphan (Robitussin) or Delsym for cough - Guafenesin (Mucinex) to thin secretions - Acetaminophen (Tylenol), ibuprofen (Motrin, Advil), or Aleve (naproxen) for pain or fever. - The use of hypertonic saline to irrigate nasal passageways can be helpful. Over the counter systems include Neti Pot and Nasopure. Use with distilled water. - Salt water gargles and throat lozenges can be helpful for sore throat. - To prevent spreading the illness to others cover your sneeze and cough into your arm and not yourhand, don't allow others to eat or drink with the same utensils or glass, and use hand fleet sales associate before touching people or common surfaces. - Apply warm packs to face to facilitate sinus drainage. - Use cool mist humidifier in bedroom at night. - Increase fluid consumption and rest. - Follow up with your PCP in 1 week or sooner if symptoms worsen or are not improving as planned. - If you experience any shortness of breath, chest pain, or high fever >101, go to the EmergencyRoom. OGY INTERN documented in this encounter Ordered Prescriptions Prescription Sig Dispense Quantity Refills Last Filled Start Date End Date methylPREDNISolone (Medrol, Pineda,) 4 mg DosepackIndication s:Acute sinusitis, recurrence not specified, unspecified location follow package directions 1 packet 04/21/2023 documented in this encounter Progress Notes * Marilyn Ennis NP - 04/21/2023 11:30 AM CST Images from the original note were not included. Subjective/Objective Patient ID: Shen Thomas is a 32 y.o. male. Chief Complaint Sinus Problem (Sinus congestion, sinus pressure, eye drainage this morning and have been itching, sx's started on Saturday, his daughter had an eye issue last week and was given eye drops but was told it was not pink eye, negative at home covid test yesterday, otc tylenol sinus and benadryl.) Patient presents to [facility] for sinus congestion and sinus pressure x4 days. This morning, he has experienced bilateral eye itching and watery drainage. He denies any known exposure to COVID,flu, or strep. He took an at home COVID test yesterday which was negative. He does note that his daughter recently had an eye infection. Patient states that he has a history of sinus infections. He has been taking OTC Tylenol sinus and Benadryl for his symptoms. He denies any fevers, shortness of breath, or chest pain. Sinus Problem Review of Systems All systems reviewed and are negative or non contributory for this patient's presentation today other than as stated in the HPI. Physical Exam Vitals reviewed. Constitutional: General: He is not in acute distress. Appearance: Normal appearance. He is well-developed. He is not ill-appearing. HENT: Head: Normocephalic. Right Ear: Tympanic membrane, ear canal and external ear normal. Left Ear: Tympanic membrane, ear canal and external ear normal. Nose: Congestion present. No rhinorrhea. Right Sinus: No maxillary sinus tenderness or frontal sinus tenderness. Left Sinus: No maxillary sinus tenderness or frontal sinus tenderness. Mouth/Throat: Lips: [place]. Mouth: Mucous membranes are moist. Pharynx: Oropharynx is clear. Eyes: General: Right eye: No discharge. Left [...] Thought content normal. Judgment: Judgment normal. Vitals: 04/21/23 1111 BP: 118/74 Pulse: 94 Resp: 20 Temp: 36.7 ??C (98 ??F) TempSrc: Temporal SpO2: 95% Weight: 83.9 kg (185 lb) Height: 175.3 cm (5' 9 ) Assessment/Plan No signs of bacterial infection on exam today Medrol Dosepak for sinusitis Discussed OTC decongestants for congestion- Sudafed/Mucinex/Flonase Motrin/Tylenol for pain/fever Antihistamines- Zyrtec, Benadryl can be used for runny nose. Discussed hydration-Drink plenty of water & get plenty of rest A humidifier may also help with congestion May try sinus rinses or steam- Saline rinses Follow up with your PCP in 7 days if you are not getting better Diagnoses and all orders for this visit: Acute sinusitis, recurrence not specified, unspecified location (Primary) - methylPREDNISolone (Medrol, Pineda,) 4 mg Dosepack; follow package directions No results found for this or any previous visit (from the past 4 hour(s)). Patient Education: Disposition Treatment plan including expectations, [...] ask questions, questions answered. Marilyn Ennis NP OGY INTERN documented in this encounter Plan of Treatment Not on file documented as of this encounter Visit Diagnoses Diagnosis Acute sinusitis, recurrence not specified, unspecified location- Primary documented in this encounter Discontinued Medications Medication Sig Discontinue Reason Start Date End Da te methylPREDNISolone (MEDROL DOSEPACK) 4 mg Dosepack TAKE 6 TABLETS ON DAY 1 DIRECTED ON PACKAGE AND DECREASE BY 1 TAB EACH DAY FOR A TOTAL OF 6 DAYS 04/26/2022 04/21/2023 predniSONE (DELTASONE) 20 mg tablet TAKE 1 TABLET ORALLY DAILY Therapy completed 04/09/2022 04/21/2023 documented as of this encounter Care Teams E Learning Developer Relationship Specialty Start Date End Date Tad Horowitz MD [address] [place] [address] PCP - General 05/28/21 Tad Horowitz MD [address] [place] [address] Family Medicine 12/01/20 documented as of this encounter
--- OUTSIDE RECORDS SUMMARY | 2024-02-29 13:41 | XMS_ITS | Encounter Summary ---
Author Organization [facility] Address [address] [place] [address] Care Team Providers Care Oil Refinery Operator Name Role Phone Unavailable Primary Care Provider Unavailabl e Reason for Visit * Reason Comments Cough Congestion Headache Fatigue Ear Problem Ear Pain Fever Encounter Details Date Type Department Care Team (Late st Contact Info) Description 04/09/2019 11:00 AM FLORAL DECORATOR Office Visit [facility] AT [address] [phone] Provider, [facility] [place] Influenza B (Primary Dx) Social History Tobacco Use Types [...] on file documented as of this encounter Last Filed Vital Signs Vital Sign Reading Time Taken Comments Blood Pressure 122/70 04/09/2019 11:24 AM FLORAL DECORATOR Pulse 99 04/09/2019 11:24 AM FLORAL DECORATOR Temperature 37.7 ??C (99.8 ??F) 04/09/2019 11:[address] Respiratory Rate 16 04/09/2019 11:24 AM FLORAL DECORATOR Oxygen Saturation 98% 04/09/2019 11:24 AM FLORAL DECORATOR Inhaled Oxygen Concentration - - Weight 77.1 kg (170 lb) 04/09/2019 11:24 AM FLORAL DECORATOR Height 177.8 cm (5' 10 ) 04/09/2019 11:24 AM FLORAL DECORATOR Body Mass Index 24.39 04/09/2019 11:24 AM FLORAL DECORATOR documented in this encounter Patient Instructions * Patient Instructions* Vivi Foster, SUPERVISOR POLISHING-TRANSMISSION MECHANIC - 04/09/2019 11:42 AM FLORAL DECORATOR Images from the original note were not included. Influenza ??? Supportive care is the focus of care with influenza-make sure to stay well- hydrated and treat symptoms with over the counter medications for symptom relief. ??? Take guaifenesin expectorants (Mucinex) to promote cough ??? For cough supression, dextromethorphan (Delsym syrup, Robitussin cough capsules or store brand). Dextromethorphan is considered safe for and breast feeding women. ??? Antihistamine, i.e. Claritin, Zyrtec or Benadryl for nasal drainage, per package directions. ??? Increase oral fluids to at least 2 liters (2 quarts) of non-caffeinated, non-alcoholic beverages daily ??? Increase rest, monitor temperature ??? May alternate acetaminophen (Tylenol) and ibuprofen (Motrin or Advil) with food every 4-6 hoursfor fever, body aches, headache or sore throat. Do not exceed maximum daily dose per package instructions ??? May use hard candy, throat lozenges, Chloraseptic spray or warm salt water gargles to soothe throat ??? Activity as tolerated, Avoid crowds and large groups ??? Avoid spreading germs by washing hands frequently and covering mouth when coughing ??? People with influenza are contagious 1 day before symptoms begin and up to 7 days after gettingck Influenza Follow-up ??? Follow up with the clinic, primary care provider or urgent care if symptoms become more severe. ??? If you begin to feel better, then feel significantly worse, see your primary care provider or go to urgent care / ER SERIOUS COMPLICATIONS OF INFLUENZA CAN OCCUR. CALL 911 OR GO TO ER WITH ANY DIFFICULTY BREATHING, SHORTNESS OF BREATH, INCREASED WORK OF BREATHING, DIFFICULTY TAKING A DEEP BREATH, ANY CHANGES IN THECOLOR OF YOUR SKIN (BLUISH OR PALE COLOR), WORSENING OF COUGH, OR CONSISTENT FEVERS, INABILITY TO KEEP FLUIDS DOWN, DECREASED ABILITIY TO URINATE, INCREASED HEADACHE, OR NEW NECK STIFFNESS. INFLUENZALEAVES YOU MORE VULNERABLE TO DEVELOP A BACTERIAL INFECTION AND ANY OF THESE SIGNS AND SYMPTOMS SHOULD BE TAKEN SERIOUSLY. Patient Education Influenza SUPERVISOR FACEPIECE LINE: Influenza (the flu) is an infection caused by the influenza virus. The flu is easily spread when aninfected person coughs, sneezes, or has close contact with others. You may be able to spread the flu to others for 1 week or longer after signs or symptoms appear. Common signs and symptoms include the following: ?? Fever and chills ?? Headaches, body aches, and muscle or joint pain ?? Cough, runny nose, and sore throat ?? Loss of appetite, nausea, vomiting, or diarrhea ?? Tiredness ?? Trouble breathing Call your local emergency number (911 in the ) if: ?? You have trouble breathing, and your lips look purple or blue. ?? You have a seizure. Seek care immediately if: ?? You are dizzy, or you are urinating less or not at all. ?? You have a headache with a stiff neck, and you feel tired or confused. ?? You have new pain or pressure in your chest. ?? Your symptoms, such as shortness of breath, vomiting, or diarrhea, get worse. ?? Your symptoms, such as fever and coughing, seem to get better, but then get worse. Call your doctor if: ?? You have new muscle pain or weakness. ?? You have questions or concerns about your condition or care. Treatment for influenza may include any of the following: ?? Acetaminophen decreases pain and fever. It is available without a doctor's order. Ask how much to take and how often to take it. Follow directions. Read the labels of all other medicines you are using to see if they also contain acetaminophen, or ask your doctor or pharmacist. Acetaminophen can cause liver damage if not taken correctly. Do not use more than 4 grams (4,000 milligrams) total of acetaminophen in one day. ?? NSAIDs , such as ibuprofen, help decrease swelling, pain, and fever. This medicine is available with or without a doctor's order. NSAIDs can cause stomach bleeding or kidney problems in certain people. If you take blood thinner medicine, always ask your healthcare provider if NSAIDs are safe foryou. Always read the medicine label and follow directions. ?? Antivirals help fight a viral infection. Manage your symptoms: ?? Rest as much as you can to help you recover. ?? Drink liquids as directed to help prevent dehydration. Ask how much liquid to drink each day andwhich liquids are best for you. Prevent the spread of the flu: ?? Wash your hands often. Use soap and water. Wash your hands after you use the bathroom, change a child's diapers, or sneeze. Wash your hands before you prepare or eat food. Use gel hand cleanser that has 60% alcohol, when soap and water are not available. Do not touch your eyes, nose, or mouth unless you have washed your hands first. ?? Cover your mouth when you sneeze or cough. Cough into a tissue or the bend of your arm. If you use a tissue, throw it away immediately and wash your hands. ?? Clean shared items with a germ-killing harness cleaner. Clean table surfaces, doorknobs, and light switches. Do not share towels, silverware, and dishes with people who are sick. Wash bed sheets, towels, silverware, and dishes with soap and water. ?? Wear a mask over your mouth and nose if you are sick. The face mask may help protect others frombecoming infected with the flu. Wear the mask when in common areas of your home or if you seek carewith a healthcare provider. ?? Stay away from others if you are sick. Stay at home until 24 hours after your fever and symptomsare gone. ?? Influenza vaccine helps prevent influenza (flu). Everyone 6 months or older should get a yearly influenza vaccine. Get the vaccine as soon as recommended each year, usually in November or December. Follow up with your doctor as directed: Write down your questions so you remember to ask them during your visits. ?? Copyright [employer] 2019 Information is for End User's use only and may not be sold, redistributed or otherwise used for commercial purposes. All illustrations and images included in CareNotes?? are the copyrighted property of [employer] or [employer] The above information is an certified residential medication aide only. It is not intended as medical advice for individual conditions or treatments. Talk to your doctor, nurse or pharmacist before following any medical regimen to see if it is safe and effective for you. AL DECORATOR documented in this encounter Progress Notes * Vivi Foster APRN-TRANSMISSION MECHANIC - 04/09/2019 11:34 AM CST Images from the original note were not included. Subjective: Shen Thomas is a 28 year old male who presents to the clinic for Chief Complaint Patient presents with ??? Cough ??? Congestion ??? Headache ??? Fatigue ??? Ear Problem ??? Ear Pain ??? Fever . He reports congestion, post nasal drip, bilateral ear pressure/pain, sinus pressure, non productive cough, achiness, headache. Onset of symptoms was 1 day ago, and is gradually worsening since that time. He is drinking plenty of fluids.OTC- Tylenol and cough drops. Sick Contacts: Yes, co-workers have been sick. Patient did not have his flu vaccine. Past Medical History: Diagnosis Date ??? 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 Current Outpatient Medications Medication Sig Dispense Refill ??? mesalamine (CANASA) 1000 MG suppository Insert 1 suppository into the rectum at bedtime ??? oseltamivir (TAMIFLU) 75 MG capsule Take 1 capsule by mouth 2 times daily for 5 days Reasons: Influenza B 10 capsule 0 No current facility-administered medications for this visit. Allergies Allergen Reactions ??? Keflex [Cephalexin] Other As an ??? Erythromycin Other As an Social History Socioeconomic History ??? Marital status: Single Spouse name: Not on file ??? Number of children: Not on file ??? Years of education: Not on file ??? Highest education level: Not on file Occupational History ??? Not on file Social Needs ??? Financial resource strain: Not on file ??? Food insecurity: Worry: Not on file Inability: Not on file ??? Transportation needs: Medical: Not on file Non-medical: Not on file Tobacco Use ??? Smoking status: Never Smoker ??? Smokeless tobacco: Never Used Substance and Sexual Activity ??? Alcohol use: Never Frequency: Never ??? Drug use: Not on file ??? Sexual activity: Not on file Lifestyle ??? Physical activity: Days per week: Not on file Minutes per session: Not on file ??? Stress: Not on file Relationships ??? Social connections: Talks on phone: Not on file Gets together: Not on file Attends mandaen service: Not on file Active member of club or organization: Not on file Attends meetings of clubs or organizations: Not on file Relationship status: Not on file ??? Intimate partner violence: Fear of current or ex partner: Not on file Emotionally abused: Not on file Physically abused: Not on file Forced sexual activity: Not on file Other Topics Concern ??? Not on file Social History Narrative ??? Not on file Review of Systems Constitutional: Positive for fatigue, fevers, chills, malaise, myalgias, and headache Eyes: Negative Ears, nose, mouth, and throat: Positive for ear pain, congestion, sore throat Respiratory: Positive for acute cough Cardiovascular: Negative Gastrointestinal: Positive for poor appetite Hematologic/lymphatic: Negative Objective: BP 122/70 (BP SITE: LEFT ARM, BP POSITION: SITTING, BP CUFF SIZE: 11) Pulse 99 Temp 99.8 ??F (37.7 ??C) (Oral) Resp 16 Ht 1.778 m (5' 10 ) Wt 77.1 kg (170 lb) SpO2 98% BMI 24.39 kg/m2 Exam General appearance: alert, cooperative, no distress, oriented to person, place, and time, ill-appearing Head: normocephalic, without trauma Eyes: sclera and conjunctiva clear Ears: canals clear, tympanic membranes normal, hearing intact to voice Nose: nares open; no septal deviation is noted, nasal mucosa not inflamed Throat: no mucous membrane abnormalities Neck: supple Nodes: mild, benign-appearing anterior cervical adenopathy Lungs: breath sounds normal and symmetric; no rales or wheezes Heart: regular rhythm, normal S1 and S2, without murmurs, gallops or rubs Assessment: Encounter Diagnosis Name Primary? Influenza B Yes Plan: Discussed potential side effects of Tamiflu with patient. Stay hydrated and rest when able. May take Tylenol or Ibuprofen for fever and body aches as directed per package instructions Activity as tolerated, Avoid crowds and large groups Avoid spreading germs by washing hands frequently and covering mouth when coughing People with influenza are contagious 1 day before symptoms begin and up to 7 days after getting sick Influenza Follow-up ??? Follow up with the clinic, primary care provider, or urgent care if symptoms become more severe. ??? If you begin to feel better, then feel significantly worse, see your primary care provider or go to urgent care / ER Follow up with PCP if symptoms do not start to improve in 48 hours, if symptoms worsen, or do not completely resolve. Reviewed education materials and instructions with patient and answered all questions. Shen Thomas verbalized understanding and agrees with plan. SERIOUS COMPLICATIONS OF INFLUENZA CAN OCCUR. CALL 911 OR GO TO ER WITH ANY DIFFICULTY BREATHING, SHORTNESS OF BREATH, INCREASED WORK OF BREATHING, DIFFICULTY TAKING A DEEP BREATH, ANY CHANGES IN THECOLOR OF YOUR SKIN (BLUISH OR PALE COLOR), WORSENING OF COUGH, OR CONSISTENT FEVERS, INABILITY TO KEEP FLUIDS DOWN, DECREASED ABILITIY TO URINATE, INCREASED HEADACHE, OR NEW NECK STIFFNESS. INFLUENZALEAVES YOU MORE VULNERABLE TO DEVELOP A BACTERIAL INFECTION AND ANY OF THESE SIGNS AND SYMPTOMS SHOULD BE TAKEN SERIOUSLY. Orders Placed This Encounter ??? INFLUENZA A+B - POINT OF CARE (AMB) ??? oseltamivir (TAMIFLU) 75 MG capsule Sig: Take 1 capsule by mouth 2 times daily for 5 days Reasons: Influenza B Dispense: 10 capsule Refill: 0 Recent Results (from the past 24 hour(s)) INFLUENZA A+B - POINT OF CARE (AMB) Collection Time: 04/09/19 12:00 AM Result Value Ref Range Influenza A Antigen Rapid Negative Negative Influenza B Antigen Rapid Positive (Abnormal) Negative Influenza Internal Control positive NEGATIVE - POSITIVE Influenza Lot Number [id number] Influenza Expiration Date 01/14/2021 Vivi Foster DNP, TODDLER CAREGIVER-BC 04/09/2019 1:43 PM AL DECORATOR documented in this encounter Plan of Treatment Not on file documented as of this encounter Procedures Procedure Name Priority Date/Time Associated Diagnosis Comments INFLUENZA A+B - POINT OF CARE (AMB) Routine 04/09/2019 Influenza B documented in this encounter Results * (ABNORMAL) INFLUENZA A+B - POINT OF CARE (AMB) (04/09/2019) Influenza A Antigen Rapid Negative Negative Influenza B Antigen Rapid Positive(A) Negative Influenza Internal Control positive NEGATIVE - POSITIVE Influenza Lot Number [id number] Influenza Expiration Date 01/14/2021 Other NASOPHARYNGEAL SWAB / Unknown 04/09/2019 Vivi Foster SUPERVISOR POLISHING-TRANSMISSION MECHANIC LAB - POINT OF CARE ORDERABLES documented in this encounter Visit Diagnoses Diagnosis Influenza B- Primary Influenza with other respiratory manifestations documented in this encounter
--- OUTSIDE RECORDS SUMMARY | 2024-02-29 13:41 | XMS_ITS | Encounter Summary ---
Author Organization [facility] Address [address] [place] [address] Care Team Providers Care Law Enforcement Officer Name Role Phone Unavailable Primary Care Provider Unavailabl e Reason for Visit * Reason Onset Date Comments Follow-up 04/11/2019 Encounter Details Date Type Department Care Team (Late st Contact Info) Description 04/11/2019 Telephone [facility] AT [address] [phone] [facility] Social History Tobacco Use Types Packs/Day Years [...] on file documented as of this encounter Miscellaneous Notes * Telephone Encounter - Evonne Romeo - 04/11/2019 10:00 AM CST Courtesy follow-up phone call made to patient. Message left advising patient to call [facility] [phone] if they have any questions or concerns. Evonne Romeo 04/11/2019 10:03 AM TIONSHIP MGR documented in this encounter Plan of Treatment Not on file documented as of this encounter Visit Diagnoses Not on filedocumented in this encounter
--- OUTSIDE RECORDS SUMMARY | 2024-02-29 13:41 | XMS_ITS | Encounter Summary ---
Author Organization [facility] Address [facility] [facility] [place] [address] [place] [address] Care Team Providers Care Steel Pan Form Placing Supervisor Name Role Phone Unavailable Primary Care Provider Unavailabl e Encounter Details Date Type Department Care Team (Latest Contact Info) Description 06/17/2023 8:37 AM CDT - 06/17/2023 11:59 PM CDT Hospital Encounter [facility] Laboratory [address] [place] [place] [address] Champ Marshall MD [address] [place] [address] Discharge Disposition: Home or Self Care (Routine Discharge) Social History Tobacco Use Types Packs/Day Years [...] Procedure Name Priority Date/Time Associated Diagnosis Comments PATHOLOGY Routine 06/17/2023 12:00 AM CDT documented in this encounter Results * Pathology (06/17/2023 12:00 AM CDT) PATHOLOGY [facility] ? Department of Laboratory Medicine ?[address] ?[place] [address] ? , extension [phone] ? Pathology Report ? Surgical Pathology Report Name: BONE, SPENCER ?Specimen #: [id number] Age: 7 1990 (Age: 32) ? Location: [facility] Sex: M ?Procedure Date: 06/17/2023 [facility] #: [id number] ?Date Received: 06/18/2023 Date Reported: 06/21/2023 Provider: CHAMP MARSHALL MD Source: Ethmoid contents, right Clinical History: Deviated septum and chronic sinusitis. Gross Description: Received in formalin, labeled with a patient label and as right ethmoid sinus contents are two pieces of white-newell bony/cartilaginous tissue, 0.3 and 0.4 cm. The specimen is entirely submitted in cassette 1 following decalcification in Immunodecal. ?? Gross examination (when applicable), interpretation, and sign out were performed at [facility], [address] [place] [address]. FINAL DIAGNOSIS: Right ethmoid sinus contents, excision: ? -Chronic rhinosinusitis. Chronic rhinosinusitis report TISSUE ? Tissue Present: Respiratory mucosa, mucoserous glands, bone ? Overall degree of inflammation: Moderate ? Eosinophil count: Less than 10 per high-power field ? Neutrophil infiltrate: Focal ? Inflammatory predominance: Lymphoplasmacytic ? Basement Membrane thickening: Present, 7.5-15 5m ? Sub-epithelial oedema: Mild ? Hyperplastic/papillar y change: Absent ? Mucosal ulceration: Absent ? Squamous metaplasia: Absent ? Fibrosis: Absent MUCIN ? Fungal elements: Rare budding yeast (evaluated with GMS and PAS/D stains). ? Charcot-Leyden crystals: Absent ? Eosinophil aggregates: Absent Electronically Signed Out ? Paola. Yann Andres M.D. [facility] 06/17/2023 06/18/2023 1:5 6 PM CDT Comment:Ethmoid contents, ri ght us Champ Marshall MD PATHOLOGY/CYTOLOGY ORDERABL ES Final Result [facility] [address] [place] [address], [place] [phone] [id number] documented in this encounter Visit Diagnoses Not on filedocumented in this encounter
--- OUTSIDE RECORDS SUMMARY | 2024-02-29 13:41 | XMS_ITS | Encounter Summary ---
Author Organization [facility] Address [address] [place] [address] Care Team Providers Care Study Director Name Role Phone Tad Horowitz MD Unavailable [phone] Tad Horowitz MD Primary Care Provider [phone] Reason for Visit * Reason Comments Earache Patient presents tod ay with complaints of continued R ear pain. Patient also complaints of congestion and thick yellow nasal discharge. Encounter Details Date Type Department Care Team (Late st Contact Info) Description 01/06/2023 11:15 AM STEP DOWN SPECIALIST Office Visit [facility] [address] [place] [address] [phone] Marilyn Ennis NP [address] [place] [address] Non-recurrent acute suppurative otitis media of right ear without spontaneous rupture of tympanic membrane (Primary Dx); Acute sinusitis, recurrence not specified, unspecified location Social History Tobacco Use Types Packs/Day Years Used Date Smoking Tobacco: Former Cigarettes Smokeless Tobacco: Never Sex and Gender Information Value Date Recorded Sex Assigned at Not on file Legal Sex Male 10:04 PM STEP DOWN SPECIALIST Gender Identity Male 12/01/2020 1:31 PM CDT Sexual Orientation Straight 12/01/2020 1: 31 PM CDT documented as of this encounter Last Filed Vital Signs Vital Sign Reading Time Taken Comments Blood Pressure 120/70 01/06/2023 11:12 AM STEP DOWN SPECIALIST Pulse 90 01/06/2023 11:12 AM STEP DOWN SPECIALIST Temperature 36.7 ??C (98 ??F) 01/06/2023 11:12 AM STEP DOWN SPECIALIST Respiratory Rate 16 01/06/2023 11:12 AM STEP DOWN SPECIALIST Oxygen Saturation 98% 01/06/2023 11:12 AM STEP DOWN SPECIALIST Inhaled Oxygen Concentration - - Weight 85.4 kg (188 lb 3.2 oz) 01/06/2023 11:12 AM STEP DOWN SPECIALIST Height 175.3 cm (5' 9 ) 01/06/2023 11:12 AM STEP DOWN SPECIALIST Body Mass Index 27.79 01/06/2023 11:12 AM STEP DOWN SPECIALIST documented in this encounter Patient Instructions * Patient Instructions* Marilyn nEnis NP - 01/06/2023 11:15 AM STEP DOWN SPECIALIST The treatment for ear infections (otitis media) [...] worsen or are not improving as planned. DOWN SPECIALIST documented in this encounter Ordered Prescriptions Prescription Sig Dispense Quantity Refills Last Filled Start Date End Date amoxicillin-clavul anate (Augmentin) 875-125 mg per tabletIndications: Non-recurrent acute suppurative otitis media of right ear without spontaneous rupture of tympanic membrane Take 1 tablet by mouth 2 (two) times a day for 10 days 20 tablet 01/06/2023 01/16/2023 documented in this encounter Progress Notes * Marilyn Ennis NP - 01/06/2023 11:15 AM CST Images from the original note were not included. Subjective/Objective Patient ID: Shen Thomas is a 32 y.o. male. Chief Complaint Earache (Patient presents today with complaints of continued R ear pain. Patient also complaints ofcongestion and thick yellow nasal discharge.) Patient presents to [facility] care for right ear pain x2 days. He states that he was seen 2 weeks ago at [facility] for nasal congestion and fluid behind his ear. He states that at that time he was prescribed Flonase and an oral steroid. He states that he finished oral steroid. However within the last few days his ear pain has worsened. He has been taking OTC Tylenol for his symptoms. He denies any fevers, changes in hearing, or ear drainage. Earache Pertinent negatives include no coughing, ear discharge, headaches, rash, rhinorrhea or sore throat. Review of Systems Constitutional: Negative for activity change, appetite change, fatigue and fever. HENT: Positive for congestion and ear pain (Right). Negative for ear discharge, postnasal drip, rhinorrhea, sinus pressure and sore throat. Eyes: Negative for discharge. Respiratory: Negative for cough and shortness of breath. Musculoskeletal: Negative for myalgias. Skin: Negative for rash. Neurological: Negative for headaches. Hematological: Negative for adenopathy. Physical Exam Vitals reviewed. Constitutional: General: He is not in acute distress. Appearance: Normal appearance. He is well-developed. He is not ill-appearing. HENT: Head: Normocephalic. Right Ear: Ear canal and external ear normal. Tympanic membrane is erythematous and bulging. Left Ear: Tympanic membrane, ear canal and external ear normal. Nose: No congestion or rhinorrhea. Right Sinus: No maxillary sinus tenderness or frontal sinus tenderness. Left Sinus: No maxillary sinus tenderness or frontal sinus tenderness. Mouth/Throat: Lips: Normangee. Mouth: Mucous membranes are moist. Pharynx: Oropharynx [...] Thought content normal. Judgment: Judgment normal. Vitals: 01/06/23 1112 BP: 120/70 BP Location: Right arm Patient Position: Sitting Pulse: 90 Resp: 16 Temp: 36.7 ??C (98 ??F) SpO2: 98% Weight: 85.4 kg (188 lb 3.2 oz) Height: 175.3 cm (5' 9 ) Assessment/Plan Augmentin as prescribed Tylenol/Motrin as needed for pain Continue with Flonase daily Apply warm compresses to ear as needed for pain Return to clinic or follow-up with PCP if symptoms persist after completion of antibiotics or sooner if symptoms worsen Diagnoses and all orders for this visit: Non-recurrent acute suppurative otitis media of right ear without spontaneous rupture of tympanic membrane (Primary) - amoxicillin-clavulanate (Augmentin) 875-125 mg per tablet; Take 1 tablet by mouth 2 (two) times aday for 10 days Acute sinusitis, recurrence not specified, unspecified location No results found for this or any [...] ask questions, questions answered. Marilyn Ennis NP DOWN SPECIALIST documented in this encounter Plan of Treatment Not on file documented as of this encounter Visit Diagnoses Diagnosis Non-recurrent acute suppurative otitis media of right ear without spontaneous rupture of tympanic membrane- Primary Acute sinusitis, recurrence not specified, unspecified location documented in this encounter Historical Medications * This list may reflect changes made after this encounter. Lialda 1.2 gram EC tablet TAKE 4 TABETS BY MOUTH DAILY 11/23/2022 added in this encounter Care Teams Study Director Relationship Specialty Start Date End Date Tad Horowitz MD [address] [facility] [place] [address] PCP - General 05/28/21 Tad Horowitz MD [address] [facility] [address] [place] [id number] Family Medicine 12/01/20 documented as of this encounter
--- OUTSIDE RECORDS SUMMARY | 2024-02-29 13:41 | XMS_ITS | Clinical Summary ---
Author Organization [facility] Address [address] [place] [address]. [place], [place] [id number] [place] [address] Care Team Providers Care Group Home Supervisor Name Role Phone Unavailable Primary Care Provider Unavailabl e Social History Tobacco Use Types Packs/Day Years Used Date Smoking Tobacco: Never Assessed Sex and Gender Information Value Date Recorded Sex Assigned at Not on file Legal Sex Male 4:33 PM CDT Gender Identity Not on file Sexual Orientation Not on file Plan of Treatment Health Maintenance Due Date Last Done Comments Annual Physical 1993 Hepatitis C 2008 DTaP, Tdap and Td Vaccines ( 1 - Tdap) 2009 Hepatitis B Vaccines (1 of 3 - 19+ 3-dose series) 2009 COVID-19 Vaccine (2023-2 5 season) 2023 Influenza Adult (#1) 2023 HPV Vaccines Aged Out No longer eligi ble based on patient's age to complete this topic Meningococcal Vaccine Aged Out No niraj linda eligible based on patient's age to complete this topic Pneumococcal Vaccine: Pediat rics (0 to 5 Years) and At-Risk Patients (6 to 64 Years) Aged Out No longer eligible b ased on patient's age to complete this topic RSV Immunizations Under 20 Months Aged Out No longer eligible based on patient's age to complete this topic
--- OUTSIDE RECORDS SUMMARY | 2024-02-29 13:42 | XMS_ITS | Encounter Summary ---
Author Organization [facility] Healthcare Address [address] [place] [address] Care Team Providers Care Government Operations Consultant Name Role Phone Tad Horowitz MD Unavailable [phone] Tad Horowitz MD Primary Care Provider [phone] Reason for Visit * Reason Comments Vomiting Diarrhea Encounter Details Date Type Department Care Team (Late st Contact Info) Description 05/28/2021 5:29 PM CDT - 05/28/2021 8:26 PM CDT Emergency [facility] Emergency Department [address] [place] [address] Everett Farias MD [address] [address] Gastroenteritis (Primary Dx) Discharge Disposition: Discharge to home or self care Social History Tobacco Use Types Packs/Day Years Used Date Smoking Tobacco: Former Cigarettes Smokeless Tobacco: Never Sex and Gender Information Value Date Recorded Sex Assigned at Not on file Legal 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 Gender Identity Male 12/01/2020 1:31 PM CDT Sexual Orientation Straight 12/01/2020 1: 31 PM CDT documented as of this encounter Last Filed Vital Signs Vital Sign Reading Time Taken Comments Blood Pressure 116/68 05/28/2021 8:15 PM CDT Pulse 96 05/28/2021 8:15 PM CDT Temperature 37.4 ??C (99.3 ??F) 05/28/2021 8:15 PM CD T Respiratory Rate 16 05/28/2021 8:15 PM CDT Oxygen Saturation 97% 05/28/2021 8:15 PM CDT Inhaled Oxygen Concentration - - Weight 81.6 kg (180 lb) 05/28/2021 4:08 PM CDT Height - - Body Mass Index 26.58 04/03/2021 8:59 AM WRECKING CRANE ENGINE OPERATOR documented in this encounter Discharge Diagnoses Diagnosis Noninfective gastroenteritis and colitis, unspecified - NONINFECTIVE GASTROENTERITIS AND COLITIS, UNSPECIFIED Personal history of nicotine dependence - PERSONAL HISTORY OF NICOTINE DEPENDENCE Allergy status to other antibiotic agents - ALLERGY STATUS TO OTHER ANTIBIOTIC AGENTS Allergy status to serum and vaccine - ALLERGY STATUS TO SERUM AND VACCINE Allergy status to other drugs, medicaments and biological substances - ALLERGY STATUS TO OTHER DRUGS, MEDICAMENTS AND BIOLOGICAL SUBSTANCES Family history of ischemic heart disease and other diseases of the circulatory system - FAMILY HISTORY OF ISCHEMIC HEART DISEASE AND OTHER DISEASES OF THE CIRCULATORY SYSTEM documented in this encounter Discharge Instructions * Discharge Instructions* Everett Farias MD - 05/28/2021 7:29 PM CDT Drink fluids as tolerated , take Zofran for nausea . * Attachments The following attachments cannot be sent through Care Everywhere. * Gastroenteritis (AfterCare(R) Instructions(ER/ED)) (Ugandan) documented in this encounter Medications at Time of Discharge ondansetron (ZOFRAN) 4 mg tablet Take 1 tablet (4 mg total) by mouth every 6 (six) hours 12 tablet 05/28/2021 documented as of this encounter Ordered Prescriptions Prescription Sig Dispense Quantity Refills Last Filled Start Date End Date ondansetron (ZOFRAN) 4 mg tablet Take 1 tablet (4 mg total) by mouth every 6 (six) hours 12 tablet 05/28/2021 documented in this encounter Discharge Disposition Disposition Code Departure Means Destination Discharge to home or self care documented in this encounter ED Notes * Everett Farias MD - 05/28/2021 7:30 PM CDT HPI Chief Complaint Patient presents with ??? Vomiting ??? Diarrhea 30-year-old with a history of GERD, ulcerative colitis here with the complaints of nausea, vomitingand diarrhea since this afternoon. Patient states that he drank some bad milk this morning few hours later developed the symptoms. He denies any fever. No history of blood in the stool. He states that he feels exhausted and dehydrated. Patient History: There are no problems to display for this patient. Past Medical History: Diagnosis Date ??? GERD (gastroesophageal reflux disease) ??? No pertinent past medical history ??? Ulcerative colitis (HCC) Past Surgical History: Procedure Laterality Date ??? NO PAST SURGERIES Family History Problem Relation Age of Onset ??? Hypertension Mother ??? Hypertension Father Social History Tobacco Use ??? Smoking status: Former Smoker Types: Cigarettes ??? Smokeless tobacco: Never Used Vaping Use ??? Vaping Use: Never used Social History Social History Narrative Merged History Encounter Review of Systems Review of Systems Constitutional: Positive for fatigue. HENT: Negative. Eyes: Negative. Respiratory: Negative. Cardiovascular: Negative. Gastrointestinal: Positive for diarrhea, nausea and vomiting. Endocrine: Negative. Genitourinary: Negative. Musculoskeletal: Negative. Skin: Negative. Allergic/Immunologic: Negative. Neurological: Negative. Hematological: Negative. Psychiatric/Behavioral: Negative. Physical Exam ED Triage Vitals Temp Pulse Resp BP SpO2 05/28/21 1608 05/28/21 1608 05/28/21 1608 05/28/21 1608 05/28/21 1608 37.2 ??C (99 ??F) 104 16 132/75 100 % Temp src Heart Rate Source Patient Position BP Location FiO2 (%) 05/28/21 1608 -- 05/28/21 1813 05/28/21 1813 -- Temporal Lying Left arm Physical Exam Vitals and nursing note reviewed. Constitutional: Appearance: Normal appearance. HENT: Head: Normocephalic and atraumatic. Nose: Nose normal. Cardiovascular: Rate and Rhythm: Normal rate and regular rhythm. Pulmonary: Effort: Pulmonary effort is normal. Breath sounds: Normal breath sounds. Abdominal: Palpations: Abdomen is soft. Musculoskeletal: General: Normal range of motion. Cervical back: Normal range of motion. Skin: General: Skin is warm. Neurological: General: No focal deficit present. Mental Status: He is alert and oriented to person, place, and time. Results for orders placed or performed during the hospital encounter of 05/28/21 CBC with auto differential Result Value Ref Range WBC 11.9 (H) 3.8 - 9.9 K/cumm Hgb 17.4 13.0 - 17.5 g/dL Hct 51.8 (H) 38.9 - 50.3 % Plt 134 (L) 150 - 400 K/cumm MPV 11.8 9.1 - 12.3 fL RBC 5.80 4.30 - 5.80 M/cumm MCV 89.3 81.3 - 96.4 fL MCH 30.0 27.1 - 33.3 pg MCHC 33.6 32.3 - 35.7 g/dL RDW CV 12.9 11.1 - 14.9 % RDW SD 42.2 35.7 - 48.1 fL NRBC abs 0.00 0.00 - 0.01 K/cumm Comprehensive metabolic panel Result Value Ref Range Sodium 139 135 - 145 mmol/L Potassium, pl 4.1 3.3 - 4.9 mmol/L Chloride 100 97 - 110 mmol/L CO2 26 22 - 32 mmol/L Anion gap 13 2 - 15 mmol/L BUN 14 8 - 25 mg/dL Creatinine 1.05 0.80 - 1.30 mg/dL Glucose 119 70 - 199 mg/dL Calcium 9.5 8.5 - 10.3 mg/dL Bilirubin, total 1.8 (H) 0.1 - 1.2 mg/dL Protein, pl 7.9 6.5 - 8.5 g/dL Albumin 4.5 3.5 - 5.0 g/dL Alk phos 67 40 - 130 Units/L ALT 42 7 - 55 Units/L AST 22 10 - 50 Units/L Lipase Result Value Ref Range Lipase 21 10 - 99 Units/L Sepsis Lactate w/ Reflex Result Value Ref Range Sepsis Lactate 1.8 0.7 - 2.0 mmol/L Differential, auto Result Value Ref Range Neutrophil abs 10.7 (H) 1.7 - 6.5 K/cumm Imm gran abs 0.1 0.0 - 0.1 K/cumm Lymphocyte abs 0.4 (L) 0.8 - 3.3 K/cumm Monocyte abs 0.7 0.2 - 0.8 K/cumm Eosinophil abs 0.1 0.0 - 0.5 K/cumm Basophil abs 0.0 0.0 - 0.1 K/cumm Neutrophil pct 89.5 % Imm gran pct 1.1 % Lymphocyte pct 3.0 % Monocyte pct 5.5 % Eosinophil pct 0.6 % Basophil pct 0.3 % eGFR Result Value Ref Range eGFR 98 mL/min/1.73 m2 MDM MDM 30-year-old with a history of ulcerative colitis nausea vomiting and diarrhea with no abdominal pain appears to be more gastroenteritis rather than colitis. Give him IV fluids along with Zofran for his nausea. ED Course as of 05/28/211931 Time: 05/29 1931 Comment: Patient feeling much better informed him about his lab work. He does feel comfortable going home. Advised him to take Zofran as needed for nausea. By: Everett Farias MD Final diagnoses: Gastroenteritis Everett Farias MD 05/28/211931 * Shanel Peterson RN - 05/28/2021 4:06 PM CDT Pt to ER via POV with complaints of vomiting and diarrhea since this morning, pt states he was running a 102 fever. Pt states he thinks the milk he drank last night was bad documented in this encounter Plan of Treatment Not on file documented as of this encounter Procedures Procedure Name Priority Date/Time Associated Diagnosis Comments SEPSIS LACTATE WITH REFLEX STAT 05/28/2021 4:35 PM CDT EGFR STAT 05/28/2021 4:35 PM CDT DIFFERENTIAL AUTO STAT 05/28/2021 4:3 5 PM CDT CBC WITH AUTO DIFFERENTIAL STAT 05/28/2021 4:35 PM CDT LIPASE STAT 05/28/2021 4:35 PM CDT COMPREHENSIVE METABOLIC PANEL STAT 05/28/2021 4:35 PM CDT documented in this encounter Results * eGFR (05/28/2021 4:35 PM CDT) Pathologist [facility] eGFR 98 mL/min/1. 73 m2 [facility] ([place]) Comment: Interpretive Data Reference Interval Normal ?>/= 90 mL/min/1.73m2 Mildly decreased* ? 60 - 89 mL/min/1.73m2 Mildly to moderately decreased ?45 - 59 mL/min/1.73m2 Moderately to severely decreased ??30 - 44 mL/min/1.73m2 Severely decreased ?15 - 29 mL/min/1.73m2 Kidney Failure ?< 15 ??mL/min/1.73m2 *Relative to young adult level Estimated glomerular filtration rate is determined by the 2020 CKD-EPI equation recommended by the National Kidney Foundation (A Unifying Approach to GFR Estimation: Recommendations of the NKF-ASK Task Force on Reassessing the Inclusion of Race in Diagnosing Kidney Disease, JASN 2020). The CKD-EPI equation should not be used for patients with unstable renal function and has not been validated in children and those over 70. Current interpretive data was last reviewed 2021. Blood 05/28/2021 4:35 PM CDT 05/28/2021 4:39 PM CDT us Jaquan Shine MD LAB BLOOD ORDERABLES Final R esult [facility] ([facility]) 1 [facility] Department [place] [address] * (ABNORMAL) Differential, auto (05/28/2021 4:35 PM CDT) Neutrophil abs 10.7(H) 1.7 - 6.5 K/cumm [facility] ([place]) Imm gran abs 0.1 0.0 - 0.1 K/cumm [facility] ([place]) Lymphocyte abs 0.4(L) 0.8 - 3.3 K/cumm [facility] ([place]) Monocyte abs 0.7 0.2 - 0.8 K/cumm [facility] ([place]) Eosinophil abs 0.1 0.0 - 0.5 K/cumm [facility] ([place]) Basophil abs 0.0 0.0 - 0.1 K/cumm [facility] ([place]) Neutrophil pct 89.5 % [facility] ([place]) Comment: Consistent with previous result Interpretive Data Percent cell count reference ranges are not reported, since discordance with absolute values may lead to misinterpretation of CBC data. Current Interpretive Data was last revised on 2017. Imm gran pct 1.1 % [facility] ([place]) Comment: Interpretive Data Percent cell count reference ranges are not reported, since discordance with absolute values may lead to misinterpretation of CBC data. Current Interpretive Data was last revised on 2017. Lymphocyte pct 3.0 % [facility] ([place]) Comment: Interpretive Data Percent cell count reference ranges are not reported, since discordance with absolute values may lead to misinterpretation of CBC data. Current Interpretive Data was last revised on 2017. Monocyte pct 5.5 % [facility] ([place]) Comment: Interpretive Data Percent cell count reference ranges are not reported, since discordance with absolute values may lead to misinterpretation of CBC data. Current Interpretive Data was last revised on 2017. Eosinophil pct 0.6 % [facility] ([place]) Comment: Interpretive Data Percent cell count reference ranges are not reported, since discordance with absolute values may lead to misinterpretation of CBC data. Current Interpretive Data was last revised on 2017. Basophil pct 0.3 % [facility] ([place]) Comment: Interpretive Data Percent cell count reference ranges are not reported, since discordance with absolute values may lead to misinterpretation of CBC data. Current Interpretive Data was last revised on 2017. Blood 05/28/2021 4:35 PM CDT 05/28/2021 4:39 PM CDT Jaquan Shine MD LAB BLOOD ORDERABLES Final R esult [facility] ([place]) [address] [place] [address] * Sepsis Lactate w/ Reflex (05/28/2021 4:35 PM CDT) Pathologist [facility] Sepsis Lactate 1.8 0.7 - 2.0 mmol/L [facility] (KI[facility]) Blood 05/28/2021 4:35 PM CDT 05/28/2021 4:39 PM CDT Jaquan Shine MD LAB BLOOD ORDERABLES Final R esult Performing Organization Address [facility] Co de Phone Number [facility] ([place]) 1 [facility] [place] [address] * Lipase (05/28/2021 4:35 PM CDT) Pathologist [facility] Lipase 21 10 - 99 Units/L [facility] ([place]) Blood 05/28/2021 4:35 PM CDT 05/28/2021 4:39 PM CDT Jaquan Shine MD LAB BLOOD ORDERABLES Final R esult Performing Organization Address [facility] Co de Phone Number [facility] ([place]) [address] [place] [address] * (ABNORMAL) Comprehensive metabolic panel (05/28/2021 4:35 PM CDT) Sodium 139 135 - 145 mmol/L [facility] ([place]) Potassium, pl 4.1 3.3 - 4.9 mmol/L [facility] ([place]) Chloride 100 97 - 110 mmol/L [facility] ([place]) CO2 26 22 - 32 mmol/L [facility] ([place]) Anion gap 13 2 - 15 mmol/L [facility] ([place]) BUN 14 8 - 25 mg/dL [facility] ([place]) Creatinine 1.05 0.80 - 1.30 mg/dL [facility] ([place]) Comment:Icteric sample, test results may be affected. Glucose 119 70 - 199 mg/dL [facility] ([place]) Comment: Interpretive Data Fasting glucose >/= 126 mg/dl is diagnostic for diabetes. ?? Fasting is defined as no caloric intake for at least 8 hours. Fasting glucose between 100 mg/dl to 125 mg/dl is diagnostic of prediabetes. In a patient with classic symptoms of hyperglycemia or hyperglycemic crisis, a random glucose >/= 200 mg/dl is diagnostic for diabetes. In the absence of unequivocal hyperglycemia, results should be confirmed by repeat testing. The classification and Diagnosis of Diabetes Diabetes Care 2017;40 (Suppl. 1):S11. Current interpretive data was last revised 2017. Calcium 9.5 8.5 - 10.3 mg/dL [facility] ([place]) Bilirubin, total 1.8(H) 0.1 - 1.2 mg/dL [facility] ([place]) Protein, pl 7.9 6.5 - 8.5 g/dL [facility] ([place]) Albumin 4.5 3.5 - 5.0 g/dL [facility] ([place]) Alk phos 67 40 - 130 Units/L [facility] ([place]) ALT 42 7 - 55 Units/L [facility] ([place]) AST 22 10 - 50 Units/L [facility] ([place]) Blood 05/28/2021 4:35 PM CDT 05/28/2021 4:39 PM CDT us Jaquan Shine MD LAB BLOOD ORDERABLES Final R esult [facility] ([place]) 1 [facility] Department [place] [address] * (ABNORMAL) CBC with auto differential (05/28/2021 4:35 PM CDT) WBC 11.9(H) 3.8 - 9.9 K/cumm [facility] ([place]) Hgb 17.4 13.0 - 17.5 g/dL [facility] ([place]) Hct 51.8(H) 38.9 - 50.3 % [facility] ([place]) Plt 134(L) 150 - 400 K/cumm [facility] ([place]) MPV 11.8 9.1 - 12.3 fL [facility] ([place]) RBC 5.80 4.30 - 5.80 M/cumm [facility] ([place]) MCV 89.3 81.3 - 96.4 fL [facility] ([place]) MCH 30.0 27.1 - 33.3 pg [facility] ([place]) MCHC 33.6 32.3 - 35.7 g/dL [facility] ([place]) RDW CV 12.9 11.1 - 14.9 % [facility] ([place]) RDW SD 42.2 35.7 - 48.1 fL [facility] ([place]) NRBC abs 0.00 0.00 - 0.01 K/cumm [facility] ([place]) Blood 05/28/2021 4:35 PM CDT 05/28/2021 4:39 PM CDT Jaquan Shine MD LAB BLOOD ORDERABLES Final R esult [facility] ([place]) 1 [facility] Department [place] [address] documented in this encounter Visit Diagnoses Diagnosis Gastroenteritis- Primary Other and unspecified noninfectious gastroenteritis and colitis documented in this encounter Administered Medications Inactive Administered Medications - up to 3 most recent administrations Medication Order MAR Action Action Date Dose Rate Site ondansetron (ZOFRAN) injection 4 mg 4 mg, intravenous, Administer over 2 Minutes, Once, On 05/28/21 at 1801, For 1 dose, Indications: Nausea, VomitingIndications:Nausea, Vomiting Given 05/28/2021 6:13 PM CDT 4 mg sodium chloride 0.9% bolus 1,000 mL 1,000 mL, intravenous, at 1,000 mL/hr, Administer over 1 Hours, Once, On 05/28/21 at 1801, For 1 dose New Bag 05/28/2021 6:13 PM CDT 1,000 mL 100 0 mL/hr documented in this encounter Active and Recently Administered Medications Times are shown in CDT. Scheduled Medication Order 05/26/2021 05/27/2021 05/28/2021 ondansetron (ZOFRAN) injection 4 mg (COMPLETED) 4 mg, intravenous, Administer over 2 Minutes, Once, On 05/28/21 at 1801, For 1 dose, Indications: Nausea, Vomiting 1812 (Given - Provid er: Joseline Humphrey, AMADOR) sodium chloride 0.9% bolus 1,000 mL (COMPLETED) 1,000 mL, intravenous, at 1,000 mL/hr, Administer over 1 Hours, Once, On 05/28/21 at 1801, For 1 dose 1812 (New Bag - Prov ider: Joseline Humphrey RN)2015 (Stopped - Provider: Paige Hendrickson RN) documented in this encounter Care Teams Government Operations Consultant Relationship Specialty Start Date End Date Tad Horowitz MD [address] [place] [address] PCP - General 05/28/21 Tad Horowitz MD [address] [place] [address] Family Medicine 12/01/20 documented as of this encounter
--- OUTSIDE RECORDS SUMMARY | 2024-02-29 13:42 | XMS_ITS | Encounter Summary ---
Author Organization [facility] Healthcare Address [address] [place] [address] Care Team Providers Care Stitch Bonding Machine Tender Helper Name Role Phone No, Physician Primary Care Provider [phone] Tad Horowitz MD Unavailable [phone] Encounter Details Date Type Department Care Team (Late st Contact Info) Description 04/03/2021 3:35 PM MARINE BIOLOGIST Lab [address] [address] Acute nasopharyngitis Social History Tobacco Use Types Packs/Day Years Used Date Smoking Tobacco: Former Cigarettes Smokeless Tobacco: Never Sex and Gender Information Value Date Recorded Sex Assigned at Not on file Legal Sex Male 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 Pt verbalized understanding of all the above. NE BIOLOGIST * Result Encounter Note - Kaylan Herrera MA - 04/04/2021 10:33 AM MARINE BIOLOGIST LM for pt to return call to clinic to make aware. NE BIOLOGIST * Result Encounter Note - Sangeetha Ruffin NP - 04/04/2021 8:51 AM CST Please notify patient of negative COVID-19 test. If patient was symptomatic, patient should continue to self isolate until at least 5 days have passed since symptom onset and they have been fever free without the use of fever reducing medications for at least 24 hours. NE BIOLOGIST documented in this encounter Plan of Treatment Not on file documented as of this encounter Procedures Procedure Name Priority Date/Time Associated Diagnosis Comments COVID-19 CORONAVIRUS RNA Routine 04/03/2021 9:45 AM MARINE BIOLOGIST Acute nasopharyngitis documented in this encounter Results * COVID-19 Coronavirus RNA Nasopharyngeal (04/03/2021 9:45 AM MARINE BIOLOGIST) COVID-19 RNA Not Detected [facility] Comment: Interpretive Data Synonyms for this test include: PCR and NAAT . ??Testing performed by the [facility] Molecular Infectious Disease Laboratory. The 2019-Novel Coronavirus Assay (COVID-19) Real Time RT-PCR assay is for in vitro diagnostic use under FDA emergency use authorization only. A negative RT-PCR result does not preclude infection with COVID-19 and should not be used as the sole basis for treatment or other patient management decisions. ??Additional sample types have been validated according to CLIA regulations. ?? Current Interpretive Data was last revised on April 07, 2020. Testing performed by: [facility], [address] [place]., [address] First COVID-19 test? Unknown [facility] Comment:Testing performed by : [facility], [address] [place] [address] Employeed in healthcare? Unknown [facility] Comment:Testing performed by : [facility], [address] [place]., [address] Group care resident? No [facility] Comment:Testing performed by : [facility], [address] [place]., [address] Hospitalized? No [facility] Comment:Testing performed by : [facility], [address] [place]., [address] Is patient in ICU? No [facility] Comment:Testing performed by : [facility], [address] [facility], [address] Symptomatic as defined by CDC? Yes [facility] Comment:Testing performed by : [facility], [address] [facility], [address] Nasopharyngeal 04/03/2021 9: 45 AM MARINE BIOLOGIST 04/03/2021 11:37 PM MARINE BIOLOGIST Narrative MIGUEL - 04/04/2021 8:15 AM MARINE BIOLOGIST What is the reason for testing?->Symptoms compatible with COVID-19 in high-risk group (defined above in process inst.) Date of Symptom Onset->04/02/21 Cyrus Loera NP LAB MICROBIOLOGY - GENERAL [facility]AS Final Result [facility] [address] Department of Laboratories [place], [place] [id number] documented in this encounter Visit Diagnoses Diagnosis Acute nasopharyngitis Acute nasopharyngitis (common cold) documented in this encounter Additional Health Concerns Infection Onset Date Last Indicated Resolved Time COVID: Suspected 04/03/2021 04/03/2021 04/04/2021 8:16 AM MARINE BIOLOGIST documented as of this encounter Care Teams Stitch Bonding Machine Tender Helper Relationship Specialty Start Date End Date No, Physician PCP - General 12/01/20 05/27/21 Tad Horowitz MD [address] [place] [address] Family Medicine 12/01/20 documented as of this encounter
--- OUTSIDE RECORDS SUMMARY | 2024-02-29 13:42 | XMS_ITS | Encounter Summary ---
Author Organization [facility] Healthcare Address [address] [place] [address] Care Team Providers Care Vp Scientific Affairs Name Role Phone No, Physician Primary Care Provider [phone] Tad Horowitz MD Unavailable [phone] Encounter Details Date Type Department Care Team (Late st Contact Info) Description 02/16/2021 6:10 PM DATABASE ADMINISTRATION ASSOCIATE Lab [address] [address] Acute nasopharyngitis Social History Tobacco Use Types Packs/Day Years Used Date Smoking Tobacco: Former Cigarettes Smokeless Tobacco: Never Sex and Gender Information Value Date Recorded Sex Assigned at Not on file Legal Sex Male 10:04 PM DATABASE ADMINISTRATION ASSOCIATE Gender Identity Male 12/01/2020 1:31 PM CDT Sexual Orientation Straight 12/01/2020 1: 31 PM CDT documented as of this encounter Miscellaneous Notes * Result Encounter Note - Lilliam Jackson MA - 02/17/2021 11:13 AM DATABASE ADMINISTRATION ASSOCIATE Patient was notified that his Covid-19 test was negative. Patient was informed that he should continue to self isolate until at least 10 days have passed since the onset of his symptoms and he has been fever free without the use of fever reducing medications for at least 24 hours. Patient verbalized understanding. BASE ADMINISTRATION ASSOCIATE documented in this encounter Plan of Treatment Not on file documented as of this encounter Procedures Procedure Name Priority Date/Time Associated Diagnosis Comments COVID-19 CORONAVIRUS RNA Routine 02/16/2021 10:15 AM DATABASE ADMINISTRATION ASSOCIATE Acute nasopharyngitis documented in this encounter Results * COVID-19 Coronavirus RNA Nasopharyngeal (02/16/2021 10:15 AM DATABASE ADMINISTRATION ASSOCIATE) COVID-19 RNA Not Detected MIGUEL LAM Comment: Interpretive Data Synonyms for this test include: PCR and NAAT . ??Testing performed by the [facility] Molecular Infectious Disease Laboratory. The 2018-Novel Coronavirus Assay (COVID-19) Real Time RT-PCR assay [...] on April 07, 2020. Testing performed by: [facility], [address] [place] [address], [id number] Employeed in healthcare? No [facility] Comment:Testing performed by : [facility], [address] [place] [address], [id number] Group care resident? No MIGUEL Comment:Testing performed by : [facility], [address] [place] [address], [address] Hospitalized? No MIGUEL Comment:Testing performed by : [facility], [address] [place] [address], [id number] Is patient in ICU? No MIGUEL Comment:Testing performed by : [facility], [address] [place] [address], [address] Symptomatic as defined by CDC? Yes MIGUEL Comment:Testing performed by : [facility], [address] [place] [address], [id number] Nasopharyngeal 02/16/2021 10 :15 AM DATABASE ADMINISTRATION ASSOCIATE 02/17/2021 12:20 AM DATABASE ADMINISTRATION ASSOCIATE Narrative MIGUEL - 02/17/2021 10:52 AM DATABASE ADMINISTRATION ASSOCIATE What is the reason for testing?->Symptoms of COVID-19 in low-risk group (batch) Date of Symptom Onset->02/06/21 us Pebbles Rosales DIRECTOR OF INFORMATICS LAB MICROBIOLOGY - GENERAL ORDERABLES Final Result MIGUEL LAM [id number] Department [place] [address] documented in this encounter Visit Diagnoses Diagnosis Acute nasopharyngitis Acute nasopharyngitis (common cold) documented in this encounter Additional Health Concerns Infection Onset Date Last Indicated Resolved Time COVID: Suspected 02/16/2021 02/16/2021 02/17/2021 10:53 AM DATABASE ADMINISTRATION ASSOCIATE documented as of this encounter Care Teams Vp Scientific Affairs Relationship Specialty Start Date End Date No, Physician PCP - General 12/01/20 05/27/21 Tad Horowitz MD [address] [place] [address] Family Medicine 12/01/20 documented as of this encounter
--- OUTSIDE RECORDS SUMMARY | 2024-02-29 13:42 | XMS_ITS | Encounter Summary ---
Author Organization [facility] Address [address] [facility] [address] [place] [id number] Care Team Providers Care Pool Hand Name Role Phone No, Physician Primary Care Provider [phone] Tad Horowitz MD Unavailable [phone] Reason for Visit * Reason Comments COVID-19 EVALUATION sx onset 02/06/21. c/ o nasal congestion, eyes itching, runny nose, sinus headache. Positive COVID exposure from coworkers. Not vaccinated. Encounter Details Date Type Department Care Team (Late st Contact Info) Description 02/16/2021 10:00 AM SPRINKLER TRUCK DRIVER Office Visit [facility] [address] [place] [address] Pebbles Rosales, MUSIC MANAGER [address] [place] [address] Acute nasopharyngitis (Primary Dx); Close exposure to COVID-19 virus Social History Tobacco Use Types Packs/Day Years Used Date Smoking Tobacco: Former Cigarettes Smokeless Tobacco: Never Sex and Gender Information Value Date Recorded Sex Assigned at Not on file Legal Sex Male 10:04 PM SPRINKLER TRUCK DRIVER Gender Identity Male 12/01/2020 1:31 PM CDT Sexual Orientation Straight 12/01/2020 1: 31 PM CDT documented as of this encounter Last Filed Vital Signs Vital Sign Reading Time Taken Comments Blood Pressure 120/80 02/16/2021 10:09 AM SPRINKLER TRUCK DRIVER Pulse 79 02/16/2021 10:09 AM SPRINKLER TRUCK DRIVER Temperature 36.8 ??C (98.2 ??F) 02/16/2021 10:[address] Respiratory Rate 18 02/16/2021 10:09 AM SPRINKLER TRUCK DRIVER Oxygen Saturation 98% 02/16/2021 10:09 AM SPRINKLER TRUCK DRIVER Inhaled Oxygen Concentration - - Weight 85 kg (187 lb 6.4 oz) 02/16/2021 10:09 AM SPRINKLER TRUCK DRIVER Height 175.3 cm (5' 9 ) 02/16/2021 10:09 AM SPRINKLER TRUCK DRIVER Body Mass Index 27.67 02/16/2021 10:09 AM SPRINKLER TRUCK DRIVER documented in this encounter Patient Instructions * Patient Instructions* Pebbles Rosales, HARMEET - 02/16/2021 10:00 AM SPRINKLER TRUCK DRIVER Patient Education Cold Symptoms WOUND CARE RN: Cold symptoms include sneezing, dry throat, a stuffy nose, headache, watery eyes, and a cough. Yourcough may be dry, or you may cough up mucus. You may also have muscle aches, joint pain, and tiredness. Rarely, you may have a fever. Cold symptoms occur from inflammation in your upper respiratory system caused by a virus. Most colds go away without treatment. Seek care immediately if: ?? You have increased tiredness and weakness. ?? You are unable to eat. ?? Your heart is beating much faster than usual for you. ?? You see white spots in the back of your throat and your neck is swollen and sore to the touch. ?? You see pinpoint or larger reddish-purple dots on your skin. Contact your healthcare provider if: ?? You have a fever higher than 102??F (38.9??C). ?? You have new or worsening shortness of breath. ?? You have thick nasal drainage for more than 2 days. ?? Your symptoms do not improve or get worse within 5 days. ?? You have questions or concerns about your condition or care. Treatment for cold symptoms may include NSAIDS to decrease muscle aches and fever. Cold medicines may also be given to decrease coughing, nasal stuffiness, sneezing, and a runny nose. Manage your cold symptoms: The following may help relieve cold symptoms, such as a dry throat and congestion: ?? Gargle with mouthwash or warm salt water as directed. ?? Suck on throat lozenges or hard candy. ?? Use a cold or warm vaporizer or humidifier to ease your breathing. ?? Rest for at least 2 days and then as needed to decrease tiredness and weakness. ?? Use petroleum based jelly around your nostrils to decrease irritation from blowing your nose. ?? Drink plenty of liquids. Liquids will help thin and loosen thick mucus so you can cough it up. Liquids will also keep you hydrated. Ask your healthcare provider which liquids are best for you and how much to drink each day. Prevent the spread of germs by washing your hands often. You can spread your cold germs to others for at least 3 days after your symptoms start. Do not share items, such as eating utensils. Cover your nose and mouth when you cough or sneeze using the crook of your elbow instead of your hands. Throwused tissues in the garbage. Do not smoke: Smoking may worsen your symptoms and increase the length of time you feel sick. Talk with your healthcare provider if you need help to stop smoking. Follow up with your healthcare provider as directed: Write down your questions so you remember to ask them during your visits. ?? 2017 [employer] Information is for End User's use only and may not be sold, redistributed or otherwise used for commercial purposes. All illustrations and images included in CareNotes?? are the copyrighted property of [employer] or [employer]. The above information is an respiratory therapy aide only. It is not intended as medical advice for individual conditions or treatments. Talk to your doctor, nurse or pharmacist before following any medical regimen to see if it is safe and effective for you. NKLER TRUCK DRIVER documented in this encounter Progress Notes * Pebbles Rosales NP - 02/16/2021 10:00 AM CST Images from the original note were not included. Subjective/Objective Patient: Shen Thomas is a 30 y.o. male followed by No, Physician Chief Complaint Patient presents with ??? COVID-19 EVALUATION sx onset 02/06/21. c/o nasal congestion, eyes itching, runny nose, sinus headache. Positive COVID exposure from coworkers. Not vaccinated. Shen Thomas presents to clinic with c/o congestion, itching eyes, rhinorrhea and headache x 10 days. History significant to COVID includes: none. Reports exposure to COVID-19 via coworker. Denies COVID inoculation. Denies having previous history of COVID diagnosis. Attempted antihistamine OTC prior to arrival for symptom alleviation with minimal relief. Denies the following: GI symptoms: nausea, vomiting, diarrhea, abdominal pain Respiratory symptoms: shortness of breath, chest discomfort, sore throat Generalized symptoms of infection: fever, excessive fatigue, generalized malaise, ear ache Review of Systems Constitutional: Negative for chills and fever. HENT: Positive for congestion and rhinorrhea. Negative for ear pain, sinus pressure, sinus pain, sneezing and sore throat. Eyes: Positive for itching. Respiratory: Negative for cough, chest tightness, shortness of breath and wheezing. Cardiovascular: Negative for chest pain. Gastrointestinal: Negative for constipation, diarrhea, nausea and vomiting. Endocrine: Negative. Genitourinary: Negative. Musculoskeletal: Negative for arthralgias and myalgias. Skin: Negative. Allergic/Immunologic: Negative for environmental allergies. Neurological: Positive for headaches. Hematological: Negative for adenopathy. Psychiatric/Behavioral: Negative. Physical Exam Vitals and nursing note reviewed. Constitutional: Appearance: Normal appearance. HENT: Head: Normocephalic and atraumatic. Right Ear: Tympanic membrane, ear canal and external ear normal. Left Ear: Tympanic membrane, ear canal and external ear normal. Nose: Congestion present. No rhinorrhea. Mouth/Throat: Mouth: Mucous membranes are moist. Pharynx: No posterior oropharyngeal erythema. Cardiovascular: Rate and Rhythm: Normal rate and regular rhythm. Heart sounds: Normal heart sounds, S1 normal and S2 normal. Pulmonary: Effort: Pulmonary effort is normal. Breath sounds: Normal breath sounds and air entry. Musculoskeletal: General: Normal range of motion. Cervical back: Neck supple. Skin: General: Skin is warm and dry. Neurological: General: No focal deficit present. Mental Status: He is alert and oriented to person, place, and time. Psychiatric: Mood and Affect: Mood normal. Behavior: Behavior normal. Behavior is cooperative. Vitals: 02/16/21 1009 BP: 120/80 BP Location: Left arm Patient Position: Sitting Pulse: 79 Resp: 18 Temp: 36.8 ??C (98.2 ??F) TempSrc: Oral SpO2: 98% Weight: 85 kg (187 lb 6.4 oz) Height: 175.3 cm (5' 9 ) Social History Tobacco Use Smoking Status Former Smoker ??? Types: Cigarettes Smokeless Tobacco Never Used Assessment/Plan Diagnoses and all orders for this visit: Acute nasopharyngitis (Primary) - COVID-19 Coronavirus RNA Nasopharyngeal; Future Close exposure to COVID-19 virus Orders Placed This Encounter Procedures ??? COVID-19 Coronavirus RNA Nasopharyngeal Standing Status: Future Standing Expiration Date: 02/16/2022 Order Specific Question: Is the patient experiencing any symptoms consistent with COVID (eg. Fever,cough, shortness of breath)? Answer: Yes Order Specific Question: What is the reason for testing? Answer: Symptoms of COVID-19 in low-risk group (batch) Order Specific Question: Date of Symptom Onset Answer: 02/06/2021 Order Specific Question: Is the patient hospitalized? Answer: No Order Specific Question: Is the patient admitted to an ICU? Answer: No Order Specific Question: Does the patient currently work in a healthcare facility with direct patient contact? Answer: No Order Specific Question: Is the patient a resident of a congregate care or living setting? Answer: No # acute nasopharyngitis --ddx: likely 2/2 environmental allergies v streptococcal bacteria --defer abx until COVID PCR resut --should PCR return negative, please send Augmentin 2/2 duration of symptoms --salt water gargles for pharyngitis --encouraged continuation of antihistamine w/wo decongestant pending symptoms --tylenol/motrin for pain/fever --diet as tolerated --ED presentation with one or more of the following symptoms: fever uncontrolled with antipyretics,shortness of breath, chest discomfort, uncontrolled n/v/d --f/u with PCP after completion of abx if symptoms persist Patient Instructions: Patient Education Cold Symptoms WOUND CARE RN: Cold symptoms include sneezing, dry throat, a stuffy nose, headache, watery eyes, and a cough. Yourcough may be dry, or you may cough up mucus. You may also have muscle aches, joint pain, and tiredness. Rarely, you may have a fever. Cold symptoms occur from inflammation in your upper respiratory system caused by a virus. Most colds go away without treatment. Seek care immediately if: ?? You have increased tiredness and weakness. ?? You are unable to eat. ?? Your heart is beating much faster than usual for you. ?? You see white spots in the back of your throat and your neck is swollen and sore to the touch. ?? You see pinpoint or larger reddish-purple dots on your skin. Contact your healthcare provider if: ?? You have a fever higher than 102??F (38.9??C). ?? You have new or worsening shortness of breath. ?? You have thick nasal drainage for more than 2 days. ?? Your symptoms do not improve or get worse within 5 days. ?? You have questions or concerns about your condition or care. Treatment for cold symptoms may include NSAIDS to decrease muscle aches and fever. Cold medicines may also be given to decrease coughing, nasal stuffiness, sneezing, and a runny nose. Manage your cold symptoms: The following may help relieve cold symptoms, such as a dry throat and congestion: ?? Gargle with mouthwash or warm salt water as directed. ?? Suck on throat lozenges or hard candy. ?? Use a cold or warm vaporizer or humidifier to ease your breathing. ?? Rest for at least 2 days and then as needed to decrease tiredness and weakness. ?? Use petroleum based jelly around your nostrils to decrease irritation from blowing your nose. ?? Drink plenty of liquids. Liquids will help thin and loosen thick mucus so you can cough it up. Liquids will also keep you hydrated. Ask your healthcare provider which liquids are best for you and how much to drink each day. Prevent the spread of germs by washing your hands often. You can spread your cold germs to others for at least 3 days after your symptoms start. Do not share items, such as eating utensils. Cover your nose and mouth when you cough or sneeze using the crook of your elbow instead of your hands. Throwused tissues in the garbage. Do not smoke: Smoking may worsen your symptoms and increase the length of time you feel sick. Talk with your healthcare provider if you need help to stop smoking. Follow up with your healthcare provider as directed: Write down your questions so you remember to ask them during your visits. ?? 2017 [employer] Information is for End User's use only and may not be sold, redistributed or otherwise used for commercial purposes. All illustrations and images included in CareNotes?? are the copyrighted property of [employer]. or [employer]. The above information is an respiratory therapy aide only. It is not intended as medical advice for individual conditions or treatments. Talk to your doctor, nurse or pharmacist before following any medical regimen to see if it is safe and effective for you. Brief: Treatment plan including expectations, follow up, and return precautions discussed with patient/parent, verbalizes understanding. Medication dosage, use, and potential adverse reactions discussed with patient/parent. Advised to follow up with PCP if symptoms do not resolve as expected or sooner if condition worsens. Signs/symptoms warranting ER evaluation reviewed. Patient and/or guardian was given an opportunity to ask questions, questions answered. ??? Patient was wearing the following PPE: mask. ??? Provider wearing the following PPE: mask, gown, gloves, face shield. Pebbles Rosales NP NKLER TRUCK DRIVER documented in this encounter Plan of Treatment Not on file documented as of this encounter Results * COVID-19 Coronavirus RNA Nasopharyngeal (02/16/2021 10:15 AM SPRINKLER TRUCK DRIVER) COVID-19 RNA Not Detected MIGUEL LAM Comment: Interpretive Data Synonyms for this test include: PCR and NAAT . ??Testing performed by the [facility] Molecular Infectious Disease Laboratory. The 2019-Novel [...] on April 07, 2020. Testing performed by: [facility], [address], [place]., [address] Employeed in healthcare? No MIGUEL LAM Comment:Testing performed by : [facility], [address] [place]., [address] Group care resident? No MIGUEL LAM Comment:Testing performed by : [facility], [address] [facility], [address] Hospitalized? No MIGUEL Comment:Testing performed by : [facility], [address] [place]., [address] Is patient in ICU? No MIGUEL Comment:Testing performed by : [facility], [address] [facility], [address] Symptomatic as defined by CDC? Yes MIGUEL LAM Comment:Testing performed by : [facility], [address] [place]., [address] Nasopharyngeal 02/16/2021 10 :15 AM SPRINKLER TRUCK DRIVER 02/17/2021 12:20 AM SPRINKLER TRUCK DRIVER Narrative MIGUEL - 02/17/2021 10:52 AM SPRINKLER TRUCK DRIVER What is the reason for testing?->Symptoms of COVID-19 in low-risk group (batch) Date of Symptom Onset->02/06/21 Pebbles Rosales NP LAB MICROBIOLOGY - GENERAL ORDERABLES Final Result MIGUEL [id number] Department [place] [address] documented in this encounter Visit Diagnoses Diagnosis Acute nasopharyngitis- Primary Acute nasopharyngitis (common cold) Close exposure to COVID-19 virus Acute nasopharyngitis Acute nasopharyngitis (common cold) documented in this encounter Historical Medications * This list may reflect changes made after this encounter. diphenhydrAMINE (BENADRYL) 25 mg capsule Take 25 mg by mouth every 6 (six) hours as needed for itching 04/03/2021 added in this encounter Additional Health Concerns Infection Onset Date Last Indicated Resolved Time COVID: Suspected 02/16/2021 02/16/2021 02/17/2021 10:53 AM SPRINKLER TRUCK DRIVER documented as of this encounter Care Teams Pool Hand Relationship Specialty Start Date End Date No, Physician PCP - General 12/01/20 05/27/21 Tad Horowitz MD [address] [place] [address] Family Medicine 12/01/20 documented as of this encounter
--- OUTSIDE RECORDS SUMMARY | 2024-02-29 13:42 | XMS_ITS | Encounter Summary ---
Author Organization [facility] Healthcare Address [address] [place] [address] Care Team Providers Care Establishment Guide Name Role Phone Tad Horowitz MD Unavailable [phone] Tad Horowitz MD Primary Care Provider [phone] Reason for Visit * Reason Comments Vomiting Diarrhea Encounter Details Date Type Department Care Team (Late st Contact Info) Description 04/16/2022 2:36 PM ARTISTIC ASSOCIATE - 04/16/2022 3:01 PM ARTISTIC ASSOCIATE Emergency [facility] Emergency Department [address] [place] [id number] Discharge Disposition: Left without being seen Social History Tobacco Use Types Packs/Day Years Used Date Smoking Tobacco: Former Cigarettes Smokeless Tobacco: Never Sex and Gender Information Value Date Recorded Sex Assigned at Not on file Legal Sex Male 10:04 PM ARTISTIC ASSOCIATE Gender Identity Male 12/01/2020 1:31 PM CDT Sexual Orientation Straight 12/01/2020 1: 31 PM CDT documented as of this encounter Last Filed Vital Signs Vital Sign Reading Time Taken Comments Blood Pressure 122/77 04/16/2022 10:05 AM ARTISTIC ASSOCIATE Pulse 111 04/16/2022 10:05 AM ARTISTIC ASSOCIATE Temperature 37.1 ??C (98.8 ??F) 04/16/2022 10:05 AM C Respiratory Rate 16 04/16/2022 10:05 AM ARTISTIC ASSOCIATE Oxygen Saturation 99% 04/16/2022 10:05 AM ARTISTIC ASSOCIATE Inhaled Oxygen Concentration - - Weight 83.9 kg (185 lb) 04/16/2022 10:05 AM ARTISTIC ASSOCIATE Height 177.8 cm (5' 10 ) 04/16/2022 10:05 AM ARTISTIC ASSOCIATE Body Mass Index 26.54 04/16/2022 10:05 AM ARTISTIC ASSOCIATE documented in this encounter Medications at Time of Discharge fluticasone propionate (FLONASE) 50 mcg/actuation nasal spray SPRAY 2 SPRAYS INTO EACH NOSTRIL DAILY 04/09/2022 ondansetron (ZOFRAN) 4 mg tablet Take 1 tablet (4 mg total) by mouth every 6 (six) hours 12 tablet 05/28/2021 predniSONE (DELTASONE) 20 mg tablet TAKE 1 TABLET ORALLY DAILY 04/09/2022 04/21/2023 documented as of this encounter Discharge Disposition Disposition Code Departure Means Destination Left without being seen documented in this encounter ED Notes * Shanel Peterson RN - 04/16/2022 10:02 AM CST Pt ambulatory to triage with c/o vomiting and diarrhea that started this morning. Pt took zofran athome without relief STIC ASSOCIATE documented in this encounter Plan of Treatment Not on file documented as of this encounter Procedures Procedure Name Priority Date/Time Associated Diagnosis Comments EGFR STAT 04/16/2022 12:25 PM ARTISTIC ASSOCIATE DIFFERENTIAL AUTO STAT 04/16/2022 12: 25 PM ARTISTIC ASSOCIATE CBC WITH AUTO DIFFERENTIAL STAT 04/16/2022 12:25 PM ARTISTIC ASSOCIATE COMPREHENSIVE METABOLIC PANEL STAT 04/16/2022 12:25 PM ARTISTIC ASSOCIATE URINALYSIS AND REFLEX TO MICROSCOPIC AND CULTURE STAT 04/16/2022 12:01 PM ARTISTIC ASSOCIATE INFLUENZA A/B, RSV, AND COVID-19 PCR Routine 04/16/2022 10:08 AM ARTISTIC ASSOCIATE documented in this encounter Results * eGFR (04/16/2022 12:25 PM ARTISTIC ASSOCIATE) eGFR 102 mL/min/1. 73 m2 [facility] ([place]) Comment: Interpretive Data Reference Interval Normal ?>/= [...] interpretive data was last reviewed 2021. Blood 04/16/2022 12:2 5 PM ARTISTIC ASSOCIATE 04/16/2022 12:50 PM ARTISTIC ASSOCIATE us Jeannette Sinha MD LAB BLOOD ORDERABLES Kacy mccabe Result [facility] 1 [facility] Department of Laboratories [place], [place] [id number] * (ABNORMAL) Differential, auto (04/16/2022 12:25 PM ARTISTIC ASSOCIATE) Neutrophil abs 9.3(H) 1.7 - 6.5 K/cumm [facility] ([place]) Imm gran abs 0.1 0.0 - 0.1 K/cumm [facility] ([place]) Lymphocyte abs 0.4(L) 0.8 - 3.3 K/cumm [facility] ([place]) Monocyte abs 0.6 0.2 - 0.8 K/cumm [facility] ([place]) Eosinophil abs 0.1 0.0 - 0.5 K/cumm [facility] ([place]) Basophil abs 0.0 0.0 - 0.1 K/cumm [facility] ([place]) Neutrophil pct 89.1 % [facility] ([place]) Comment: Consistent with previous result Interpretive Data Percent cell count reference ranges are not reported, since discordance with absolute values may lead to misinterpretation of CBC data. Current Interpretive Data was last revised on 2017. Imm gran pct 0.5 % [facility] ([place]) Comment: Interpretive Data Percent cell count reference ranges are not reported, since discordance with absolute values may lead to misinterpretation of CBC data. Current Interpretive Data was last revised on 2017. Lymphocyte pct 3.7 % [facility] ([place] Comment: Interpretive Data Percent cell count reference ranges are not reported, since discordance with absolute values may lead to misinterpretation of CBC data. Current Interpretive Data was last revised on 2017. Monocyte pct 6.0 % [facility] ([place]) Comment: Interpretive Data Percent cell count reference ranges are not reported, since discordance with absolute values may lead to misinterpretation of CBC data. Current Interpretive Data was last revised on 2017. Eosinophil pct 0.5 % [facility] ([place] Comment: Interpretive Data Percent cell count reference ranges are not reported, since discordance with absolute values may lead to misinterpretation of CBC data. Current Interpretive Data was last revised on 2017. Basophil pct 0.2 % [facility] ([place]) Comment: Interpretive Data Percent cell count reference ranges are not reported, since discordance with absolute values may lead to misinterpretation of CBC data. Current Interpretive Data was last revised on 2017. Blood 04/16/2022 12:2 5 PM ARTISTIC ASSOCIATE 04/16/2022 12:50 PM ARTISTIC ASSOCIATE us Jeannette Sinha MD LAB BLOOD ORDERABLES Kacy mccabe Result [facility] ([place]) 1 [facility] Department [place] [address] * (ABNORMAL) Comprehensive metabolic panel (04/16/2022 12:25 PM ARTISTIC ASSOCIATE) Sodium 138 135 - 145 mmol/L [facility] ([place] Potassium, pl 4.2 3.3 - 4.9 mmol/L [facility] Chloride 100 97 - 110 mmol/L [facility] CO2 27 22 - 32 mmol/L [facility] [place]) Anion gap 11 2 - 15 mmol/L [facility] BUN 13 8 - 25 mg/dL [facility] Creatinine 1.01 0.80 - 1.30 mg/dL [facility] ([place] Comment:Icteric sample, test results may be affected. Glucose 112 70 - 199 mg/dL [facility] ([place]) [...] classification and Diagnosis of Diabetes Diabetes Care 202; 46: S19-S40. Current interpretive data was last revised 2022. Calcium 9.6 8.5 - 10.3 mg/dL [facility] Bilirubin, total 1.4(H) 0.1 - 1.2 mg/dL [facility] ([place] Protein, pl 7.6 6.5 - 8.5 g/dL [facility]) Albumin 4.6 3.5 - 5.0 g/dL [facility]) Alk phos 71 40 - 130 Units/L [facility]) ALT 95(H) 7 - 55 Units/L [facility] AST 40 10 - 50 Units/L [facility]) Blood (Blood, Venous) 04/16/2022 12:25 PM ARTISTIC ASSOCIATE 04/16/2022 12:50 PM ARTISTIC ASSOCIATE us Jeannette Sinha MD LAB BLOOD ORDERABLES Kacy l Result [facility] ([place]) 1 [facility] [employer] [place] [address] * (ABNORMAL) CBC with auto differential (04/16/2022 12:25 PM ARTISTIC ASSOCIATE) WBC 10.4(H) 3.8 - 9.9 K/cumm [facility] ([place] Hgb 17.2 13.0 - 17.5 g/dL [facility] Hct 49.2 38.9 - 50.3 % [facility] ([place] Plt 142(L) 150 - 400 K/cumm [facility] ([place]) MPV 11.8 9.1 - 12.3 fL [facility] RBC 5.73 4.30 - 5.80 M/cumm [facility]) MCV 85.9 81.3 - 96.4 fL [facility] [place] MCH 30.0 27.1 - 33.3 pg [facility] MCHC 35.0 32.3 - 35.7 g/dL [facility] RDW CV 12.3 11.1 - 14.9 % [facility] RDW SD 38.4 35.7 - 48.1 fL [facility] NRBC abs 0.00 0.00 - 0.01 K/cumm [facility] ([place]) Blood (Blood, Venous) 04/16/2022 12:25 PM ARTISTIC ASSOCIATE 04/16/2022 12:50 PM ARTISTIC ASSOCIATE us Jeannette Sinha MD LAB BLOOD ORDERABLES Kacy l Result [facility] ([place] 1 [facility] [employer] [place] [address] * Urinalysis reflex to microscopic and culture Urine (04/16/2022 12:01 PM ARTISTIC ASSOCIATE) Color, ur Yellow Yellow [facility] Clarity, ur Clear Clear [facility] ([place]) Specific gravity, ur 1.024 1.003 - 1.030 [facility] ([place]) pH, urine 8.5 [facility] Protein, ur ql Trace Negative [facility] Glucose, ur ql Negative Negative [facility] Ketones, ur Negative Negative [facility] ([place]) Bilirubin, ur Negative Negative [facility] Blood, ur Negative Negative [facility] Urobilinogen, ur <2.0 <2.0 mg/dL [facility] ([place] Nitrite, ur Negative Negative [facility] ([place]) Leukocyte esterase, ur Negative Negative [facility] ([place] UA reflex comment Reflex conditions for microscopic UA and culture not met. [facility] ([place]) Urine 04/16/2022 12:0 1 PM ARTISTIC ASSOCIATE 04/16/2022 12:06 PM ARTISTIC ASSOCIATE Narrative [facility] - 04/16/2022 12:10 PM ARTISTIC ASSOCIATE ?? Urine pH is affected by diet, medications, systemic acid-base disturbances, and renal tubular function. ??pH may affect urinary stone formation. ??For example, urine pH below 6.0 may help reduce the tendency for calcium phosphate stones and pH greater than 6.0 may reduce the tendency for uric acid stone formation. Source: [employer]. Last revised 03-14-2017 us Jeannette Sinha MD LAB MICROBIOLOGY - GENERA L ORDERABLES Final Result [facility] ([place] 1 [facility] Department [place] [address] * Influenza A/B, RSV, and COVID-19 PCR Nasopharyngeal (04/16/2022 10:08 AM ARTISTIC ASSOCIATE) COVID-19 RNA Negative Negative [facility]) Influenza A RNA Negative Negative [facility] Influenza B RNA Negative Negative [facility] RSV RNA Negative Negative [facility] ([place] Comment: Interpretive data: This test is performed using the [employer] Xpert Xpress CoV-2/Flu/RSV plus assay. This is a multiplex, real-time reverse transcriptase PCR assay intended for the qualitative detection of nucleic acid from SARS-CoV-2, influenza A, influenza B, and respiratory syncytial virus. This assay has been reviewed by the FDA for Emergency Use Authorization (EUA). The performance characteristics have been verified by the performing laboratory. Results must be considered in the clinical context, and a negative result does not rule out infection. Interpretive Data last revised 2021. Nasopharyngeal 04/16/2022 10 :08 AM ARTISTIC ASSOCIATE 04/16/2022 10:11 AM ARTISTIC ASSOCIATE Narrative [facility] ([place] - 04/16/2022 10:51 AM ARTISTIC ASSOCIATE Is the Patient experiencing symptoms consistent with COVID?->Yes Date of Symptom Onset->04/16/22 Reason for testing?->Symptomatic us Jeannette Sinha MD LAB MICROBIOLOGY - GENERA L ORDERABLES Final Result [facility] ([place]) 1 [facility] Department [place] [address] documented in this encounter Visit Diagnoses Not on filedocumented in this encounter Care Teams Establishment Guide Relationship Specialty Start Date End Date Tad Horowitz MD [address] [facility] [place] [address] PCP - General 05/28/21 Tad Horowitz MD [address] [facility] [place] [address] Family Medicine 12/01/20 documented as of this encounter
--- OUTSIDE RECORDS SUMMARY | 2024-02-29 13:42 | XMS_ITS | Encounter Summary ---
Author Organization [facility] Address [address] [facility] [address] [place] [address] Care Team Providers Care Physical Therapy Teacher Name Role Phone No, Physician Primary Care Provider [phone] Tad Horowitz MD Unavailable [phone] Reason for Visit * Reason Comments COVID-19 EVALUATION [facility]- Sore throat, on set yesterday afternoon, earache starting a couple days before. History of Sinsus infections. No known covid exposure, no history of covid, and not vaccinated Encounter Details Date Type Department Care Team (Latest Contact Info) Description 04/03/2021 9:00 AM SOLAR MAINTENANCE TECHNICIAN Office Visit [facility] [place] [address] [place] [address] Cyrus Loera, HARMEET [address] [facility] [address] [place] [address] Acute nasopharyngitis (Primary Dx) Social History Tobacco Use Types Packs/Day Years Used Date Smoking Tobacco: Former Cigarettes Smokeless Tobacco: Never Sex and Gender Information Value Date Recorded Sex Assigned at Not on file Legal Sex Male 10:04 PM SOLAR MAINTENANCE TECHNICIAN Gender Identity Male 12/01/2020 1:31 PM CDT Sexual Orientation Straight 12/01/2020 1: 31 PM CDT documented as of this encounter Last Filed Vital Signs Vital Sign Reading Time Taken Comments Blood Pressure 122/74 04/03/2021 8:59 AM SOLAR MAINTENANCE TECHNICIAN Pulse 92 04/03/2021 8:59 AM SOLAR MAINTENANCE TECHNICIAN Temperature 37.3 ??C (99.1 ??F) 04/03/2021 8:59 AM CS T Respiratory Rate 18 04/03/2021 8:59 AM SOLAR MAINTENANCE TECHNICIAN Oxygen Saturation 97% 04/03/2021 8:59 AM SOLAR MAINTENANCE TECHNICIAN Inhaled Oxygen Concentration - - Weight 84.6 kg (186 lb 6.4 oz) 04/03/2021 8:59 A M SOLAR MAINTENANCE TECHNICIAN Height 175.3 cm (5' 9 ) 04/03/2021 8:59 AM SOLAR MAINTENANCE TECHNICIAN Body Mass Index 27.53 04/03/2021 8:59 AM SOLAR MAINTENANCE TECHNICIAN documented in this encounter Patient Instructions * Patient Instructions* Cyrus Loera NP - 04/03/2021 9:00 AM SOLAR MAINTENANCE TECHNICIAN Results for orders placed or performed in visit on 04/03/21 POC Influenza A/B, COVID-19 antigen Result Value Ref Range Inflenza A Ag, POC Negative Influenza B Ag, POC Negative COVID-19 Ag POC Presumptive Negative Presumptive Negative, Invalid POCT rapid strep A Result Value Ref Range Rapid Strep A, POC Negative Patient Education Cold Symptoms NET SOFTWARE ARCHITECT: Cold symptoms include sneezing, dry throat, a [...] ask them during your visits. ?? 2017 [employer] Information is for End User's use only and may not be sold, redistributed or otherwise used for commercial purposes. All illustrations and images included in CareNotes?? are the copyrighted property of [employer] or [employer]. The above information is an medicaid eligibility specialist only. It is not intended as medical advice for individual conditions or treatments. Talk to your doctor, nurse or pharmacist before following any medical regimen to see if it is safe and effective for you. R MAINTENANCE TECHNICIAN R MAINTENANCE TECHNICIAN R MAINTENANCE TECHNICIAN R MAINTENANCE TECHNICIAN documented in this encounter Progress Notes * Cyrus Loera, MACHINE FEEDER RAW STOCK - 04/03/2021 9:00 AM CST Images from the original note were not included. Subjective/Objective Patient ID: Shen Thomas is a 30 y.o. male. Chief Complaint COVID-19 EVALUATION ([facility]- Sore throat, onset yesterday afternoon, earache starting a couple days before. History of Sinsus infections. No known covid exposure, no history of covid, and not vaccinated) congestion 1 week, this am scratchy throat, mild, ears popping. No hx of covid Not vaccinated for covid Sore Throat This is a new problem. The current episode started yesterday. The problem has been rapidly worsening. Neither side of throat is experiencing more pain than the other. There has been no fever. The pain is at a severity of 5/10. Associated symptoms include congestion (mild congestion for approx. 5-7 days), headaches (yesterday) and a plugged ear sensation. Pertinent negatives include no abdominal pain, coughing, diarrhea, drooling, ear discharge, ear pain (popping, denies pain), hoarse voice, neck pain, shortness of breath, stridor, swollen glands, trouble swallowing or vomiting. He has had no exposure to strep or mono. He has tried acetaminophen for the symptoms. The treatment provided mild relief. Review of Systems Constitutional: Negative for appetite change, chills, diaphoresis, fatigue and fever. HENT: Positive for congestion (mild congestion for approx. 5-7 days) and sore throat (mild, startedyesterday). Negative for drooling, ear discharge, ear pain (popping, denies pain), hoarse voice, postnasal drip, rhinorrhea, sinus pressure, sinus pain, sneezing and trouble swallowing. Respiratory: Negative for cough, chest tightness, shortness of breath, wheezing and stridor. Cardiovascular: Negative for chest pain. Gastrointestinal: Negative for abdominal pain, diarrhea, nausea and vomiting. Musculoskeletal: Negative for myalgias, neck pain and neck stiffness. Skin: Negative for rash. Neurological: Positive for headaches (yesterday). Negative for dizziness. Hematological: Negative for adenopathy. Physical Exam Vitals and nursing note reviewed. Constitutional: General: He is awake. He is not in acute distress. Appearance: Normal appearance. HENT: Head: Normocephalic and atraumatic. Right Ear: Ear canal normal. A middle ear effusion is present. Tympanic membrane is not perforated,erythematous, retracted or bulging. Left Ear: Ear canal normal. A middle ear effusion is present. Tympanic membrane is not perforated, erythematous, retracted or bulging. Nose: Congestion present. No rhinorrhea. Right Sinus: No maxillary sinus tenderness or frontal sinus tenderness. Left Sinus: No maxillary sinus tenderness or frontal sinus tenderness. Mouth/Throat: Lips: [place]. Mouth: Mucous membranes are moist. Tongue: Tongue does not deviate from midline. Pharynx: Uvula midline. Posterior oropharyngeal erythema present. No pharyngeal swelling, oropharyngeal exudate or uvula swelling. Tonsils: No tonsillar exudate or tonsillar abscesses. Eyes: General: Lids are normal. Pupils: Pupils are equal, round, and reactive to light. Cardiovascular: Rate and Rhythm: Normal rate and regular rhythm. Pulses: Normal pulses. Heart sounds: Normal heart sounds. Pulmonary: Effort: Pulmonary effort is normal. No respiratory distress. Breath sounds: Normal breath sounds. No decreased breath sounds, wheezing, rhonchi or rales. Musculoskeletal: Cervical back: Full passive range of motion without pain, normal range of motion and neck supple. Lymphadenopathy: Cervical: No cervical adenopathy. Skin: General: Skin is warm and dry. Neurological: Mental Status: He is alert and oriented to person, place, and time. Gait: Gait normal. Psychiatric: Behavior: Behavior is cooperative. Vitals: 04/03/21 0859 BP: 122/74 BP Location: Left arm Patient Position: Sitting Pulse: 92 Resp: 18 Temp: 37.3 ??C (99.1 ??F) TempSrc: Oral SpO2: 97% Weight: 84.6 kg (186 lb 6.4 oz) Height: 175.3 cm (5' 9 ) No exam data present Past Medical History: Diagnosis Date ??? GERD (gastroesophageal reflux disease) ??? No pertinent past medical history ??? Ulcerative colitis (HCC) No current outpatient medications on file. Allergies Allergen Reactions ??? Boostrix Tdap [Diphth,Pertus(Acell),Tetanus] Anaphylaxis ??? Adacel(Tdap Adolesn/Adult)(Pf) [Diph,Pertuss(Acel),Tet Vac(Pf)] Hives ??? Erythromycin Rash ??? Erythromycin Hives ??? Keflex [Cephalexin] Rash ??? Keflex [Cephalexin] Hives Social History Socioeconomic History ??? Marital status: Tobacco Use ??? Smoking status: Former Smoker Types: Cigarettes ??? Smokeless tobacco: Never Used Vaping Use ??? Vaping Use: Never used Social History Narrative Merged History Encounter Assessment/Plan Diagnoses and all orders for this visit: Acute nasopharyngitis (Primary) - POC Influenza A/B, COVID-19 antigen - COVID-19 Coronavirus RNA Nasopharyngeal; Future - POCT rapid strep A Recent Results (from the past 4 hour(s)) POC Influenza A/B, COVID-19 antigen Collection Time: 04/03/21 9:19 AM Result Value Ref Range Inflenza A Ag, POC Negative Influenza B Ag, POC Negative COVID-19 Ag POC Presumptive Negative Presumptive Negative, Invalid POCT rapid strep A Collection Time: 04/03/21 9:48 AM Result Value Ref Range Rapid Strep A, POC Negative Patient Education: -You may try: ??? Nasal saline wash, either Neti Pot or Sinus Rinse DAILY or a saline nasal spray 3-4 times a day. ??? Warm salt water gargles PRN ??? Guaifenesin expectorants (Maximum Strength Mucinex, Robitussin, store brand) to loosen secretions. ??? For cough you can use dextromethorphan (Delsym syrup, Robitussin cough capsules or store brand). Dextromethorphan is considered safe for and breast feeding women. ??? You may try decongestants such as Sudafed (purchase at pharmacy) or Sudafed PE for congestion relief. Decongestants can keep you awake at night. Do not use decongestants if you have high blood pressure or if you are . If you have high blood pressure you can take otc Coricidin per package directions -Increase fluid intake: drink 2 liters (2 quarts) of non-caffeinated, non- alcoholic beverages daily, drinking alcohol causes nasal and sinus membranes to swell -Steam inhalation and warm compress to face often help relieve pressure -Avoid allergens and excessively dry heat -Sleep with head of bed elevated to encourage drainage. -Use of a humidifier if environment is heated by dry forced - air system -Avoid smoking, second-hand smoke and air pollutants. -If you are not improving or worsening, or develop facial swelling, in the next 5-7 days you must RETURN to the clinic, go to your PCP, or Urgent Care/ER to be SEEN and reevaluated. No further prescriptions or refills will be given by phone without another evaluation. Disposition ??? Treatment plan including expectations, follow up, and return precautions discussed with patient/parent, verbalizes understanding. ??? Medication dosage, use, and potential adverse reactions discussed with patient/parent. ??? Advised to follow up with PCP if symptoms do not resolve as expected or sooner if condition worsens. ??? Signs/symptoms warranting ER evaluation reviewed. ??? Patient and/or guardian was given an opportunity to ask questions, questions answered. Cyrus Loera NP R MAINTENANCE TECHNICIAN documented in this encounter Plan of Treatment Not on file documented as of this encounter Procedures Procedure Name Priority Date/Time Associated Diagnosis Comments POCT RAPID STREP Routine 04/03/2021 9:48 AM SOLAR MAINTENANCE TECHNICIAN Acute nasopharyngitis POC INFLUENZA A/B, COVID-19 ANTIGEN Routine 04/03/2021 9:19 AM SOLAR MAINTENANCE TECHNICIAN Acute nasopharyngitis documented in this encounter Results * POCT rapid strep A (04/03/2021 9:48 AM SOLAR MAINTENANCE TECHNICIAN) Pathologist [facility] Rapid Strep A, POC Negative Swab 04/03/2021 9:48 AM SOLAR MAINTENANCE TECHNICIAN Cyrus Loera NP POINT OF CARE TEST ORDERABLES F inal Result * COVID-19 Coronavirus RNA Nasopharyngeal (04/03/2021 9:45 AM SOLAR MAINTENANCE TECHNICIAN) Pathologist [facility] COVID-19 RNA Not Detected MIGUEL ALM Comment: Interpretive Data Synonyms for this test include: PCR and NAAT . ??Testing performed by the [facility] Molecular Infectious Disease [facility]. The 2019-Novel [...] April 07, 2020. Testing performed by: [facility], [address] [facility], [address] First COVID-19 test? Unknown CERNER Comment:Testing performed by : [facility], [address] [place] [address], [id number] Employeed in healthcare? Unknown CERNER Comment:Testing performed by : [facility], [address] [place] [address], [id number] Group care resident? No CERNER Comment:Testing performed by : [facility], [address] [place] [address], [id number] Hospitalized? No CERNER Comment:Testing performed by : [facility], [address] [facility], [address] Is patient in ICU? No CERNER Comment:Testing performed by : [facility], [address] [facility], [address] Symptomatic as defined by CDC? Yes CERNER Comment:Testing performed by : [facility], [address] [place] [address], [id number] Nasopharyngeal 04/03/2021 9: 45 AM SOLAR MAINTENANCE TECHNICIAN 04/03/2021 11:37 PM SOLAR MAINTENANCE TECHNICIAN Narrative MIGUEL - 04/04/2021 8:15 AM SOLAR MAINTENANCE TECHNICIAN What is the reason for testing?->Symptoms compatible with COVID-19 in high-risk group (defined above in process inst.) Date of Symptom Onset->04/02/21 Cyrus Loera NP LAB MICROBIOLOGY - GENERAL [facility]AS Final Result MIGUEL LAM [address] [place] [address] * POC Influenza A/B, COVID-19 antigen (04/03/2021 9:19 AM SOLAR MAINTENANCE TECHNICIAN) Influenza A Ag, POC Negative [facility] [place] Influenza B Ag, POC Negative [facility] [place] COVID-19 Ag POC Presumptive Negative Presumptive Negative, Invalid [facility] [place] 04/03/2021 9:19 AM SOLAR MAINTENANCE TECHNICIAN Cyrus Loera NP POINT OF CARE TEST ORDERABLES F inal Result Performing Organization Address City/[facility] Co de Phone Number [facility] [address] [place] [address] documented in this encounter Visit Diagnoses Diagnosis Acute nasopharyngitis- Primary Acute nasopharyngitis (common cold) Acute nasopharyngitis Acute nasopharyngitis (common cold) documented in this encounter Discontinued Medications Medication Sig Discontinue Reason Start Date End Da te diphenhydrAMINE (BENADRYL) 25 mg capsule Take 25 mg by mouth every 6 (six) hours as needed for itching Therapy completed 04/03/2021 mesalamine (CANASA) 1,000 mg suppositoryIndications:U lcerative Proctitis Insert 1,000 mg into the rectum nightly Therapy completed 04/03/2021 omeprazole (PriLOSEC) 20 mg capsule Take 20 mg by mouth daily Therapy completed 04/03/2021 documented as of this encounter Additional Health Concerns Infection Onset Date Last Indicated Resolved Time COVID: Suspected 04/03/2021 04/03/2021 04/03/2021 9:21 AM SOLAR MAINTENANCE TECHNICIAN COVID: Suspected 04/03/2021 04/03/2021 04/04/2021 8:16 AM SOLAR MAINTENANCE TECHNICIAN documented as of this encounter Care Teams Physical Therapy Teacher Relationship Specialty Start Date End Date No, Physician PCP - General 12/01/20 05/27/21 Tad Horowitz MD [address] [place] [address] Family Medicine 12/01/20 documented as of this encounter
--- OUTSIDE RECORDS SUMMARY | 2024-02-29 13:42 | XMS_ITS | Encounter Summary ---
Author Organization [facility] Medical [facility] Address [address] [facility] [address] [place] [address] Care Team Providers Care Feller Seam Operator Name Role Phone Tad Horowitz MD Unavailable [phone] Tad Horowitz MD Primary Care Provider [phone] Reason for Visit * Reason Comments Sick Visit Patient presents tod ay with complaints of a recent history of fever, R ear pain, sore throat, white spots, and exposure to STREP. SX onset 05/03. Encounter Details Date Type Department Care Team (Late st Contact Info) Description 05/05/2022 5:15 PM PREMIX OPERATOR CONCENTRATE Office Visit [facility] [place] [address] [place] [phone] Mei Brizuela NP [address] [place] [address] Strep pharyngitis (Primary Dx); Exposure to strep throat Social History Tobacco Use Types Packs/Day Years Used Date Smoking Tobacco: Former Cigarettes Smokeless Tobacco: Never Sex and Gender Information Value Date Recorded Sex Assigned at Not on file Legal Sex Male 10:04 PM PREMIX OPERATOR CONCENTRATE Gender Identity Male 12/01/2020 1:31 PM CDT Sexual Orientation Straight 12/01/2020 1: 31 PM CDT documented as of this encounter Last Filed Vital Signs Vital Sign Reading Time Taken Comments Blood Pressure 138/82 05/05/2022 5:11 PM PREMIX OPERATOR CONCENTRATE Pulse 75 05/05/2022 5:11 PM PREMIX OPERATOR CONCENTRATE Temperature 36.4 ??C (97.5 ??F) 05/05/2022 5:11 PM CS T Respiratory Rate 16 05/05/2022 5:11 PM PREMIX OPERATOR CONCENTRATE Oxygen Saturation 96% 05/05/2022 5:11 PM PREMIX OPERATOR CONCENTRATE Inhaled Oxygen Concentration - - Weight 83.9 kg (185 lb) 05/05/2022 5:11 PM PREMIX OPERATOR CONCENTRATE Height 175.3 cm (5' 9 ) 05/05/2022 5:11 PM PREMIX OPERATOR CONCENTRATE Body Mass Index 27.32 05/05/2022 5:11 PM PREMIX OPERATOR CONCENTRATE documented in this encounter Patient Instructions * Patient Instructions* Mei Brizuela NP - 05/05/2022 5:15 PM PREMIX OPERATOR CONCENTRATE The rapid strep exam performed at the [facility] today was positive. The following is recommended treatment for Strep pharyngitis (strep throat) Complete antibiotic as prescribed Take Tylenol or Motrin for fever/pain Gargle with warm salt water (1tsp salt/1 cup water) or warm tea with honey and lemon to soothe pain Suck on ice chips, popsicles, cough drops, or throat lozenges You may return to work, daycare, or school 24 hours after starting antibiotics and you are fever free without use of Tylenol or Motrin. Strep pharyngitis is contagious. Do not share food, drinks, or utensils Replace your toothbrush within 48 hours after starting antibiotics. If signs/symptoms do not improve or worsen, follow up with your PCP. IX OPERATOR CONCENTRATE documented in this encounter Ordered Prescriptions Prescription Sig Dispense Quantity Refills Last Filled Start Date End Date amoxicillin 500 mg tablet/capsuleIndic ations:Strep pharyngitis Take 1 tablet/caps ule (500 mg total) by mouth 2 (two) times a day for 10 days 20 tablet/capsule 05/05/2022 05/15/2022 documented in this encounter Progress Notes * Mei Brizuela NP - 05/05/2022 5:15 PM CST Images from the original note were not included. Subjective/Objective Patient ID: Shen Thomas is a 31 y.o. male. Chief Complaint Sick Visit (Patient presents today with complaints of a recent history of fever, R ear pain, sore throat, white spots, and exposure to STREP. SX onset 05/03.) Patient presents to the [facility] with a two day history of fever (101, right ear painand sore throat with exudate. He has had a positive exposure to strep. He has taken Advil OTC for his symptoms. Review of Systems Constitutional: Positive for fever. Negative for activity change, appetite change and fatigue. HENT: Positive for ear pain and sore throat. Negative for congestion, ear discharge, postnasal drip, rhinorrhea and sinus pressure. Eyes: Negative for discharge. Respiratory: Negative for cough and shortness of breath. Gastrointestinal: Negative for diarrhea, nausea and vomiting. Musculoskeletal: Negative for myalgias. Skin: Negative for [...] tenderness or frontal sinus tenderness. Mouth/Throat: Lips: [place]. Mouth: Mucous membranes are moist. Pharynx: Oropharyngeal exudate and posterior oropharyngeal erythema present. Tonsils: Tonsillar exudate present. 2+ on the right. 2+ on the left. Eyes: General: Right eye: No discharge. Left eye: No discharge. Conjunctiva/sclera: Conjunctivae normal. Cardiovascular: Rate and Rhythm: Normal rate and regular rhythm. Pulmonary: Effort: Pulmonary effort is normal. No respiratory distress. Breath sounds: Normal breath sounds and air entry. Abdominal: Tenderness: There is no abdominal tenderness. Musculoskeletal: General: Normal range of motion. Cervical [...] Thought content normal. Judgment: Judgment normal. Vitals: 05/05/22 1711 BP: 138/82 BP Location: Right arm Patient Position: Sitting Pulse: 75 Resp: 16 Temp: 36.4 ??C (97.5 ??F) TempSrc: Temporal SpO2: 96% Weight: 83.9 kg (185 lb) Height: 175.3 cm (5' 9 ) Assessment/Plan Antibiotics as prescribed Tylenol/Motrin as needed for fever/pain Follow up with PCP if symptoms persist or worsen Reviewed ER precautions Diagnoses and all orders for this visit: Exposure to strep throat (Primary) - POCT rapid strep A No results found for this or any previous visit (from the past 4 hour(s)). There are no Patient Instructions on file for this visit. Disposition Treatment plan including expectations, follow up, and return precautions discussed with patient/parent, verbalizes understanding. Medication dosage, use, and potential adverse reactions discussed with patient/parent. Advised to follow up with PCP if symptoms do not resolve as expected or sooner if condition worsens. Signs/symptoms warranting ER evaluation reviewed. Patient and/or guardian was given an opportunity to ask questions, questions answered. Mei Brizuela NP IX OPERATOR CONCENTRATE documented in this encounter Plan of Treatment Not on file documented as of this encounter Procedures Procedure Name Priority Date/Time Associated Diagnosis Comments POCT RAPID STREP Routine 05/05/2022 5:20 PM PREMIX OPERATOR CONCENTRATE Exposure to strep throat documented in this encounter Results * (ABNORMAL) POCT rapid strep A (05/05/2022 5:20 PM PREMIX OPERATOR CONCENTRATE) Rapid Strep A, POC Positive(A ) Negative Swab 05/05/2022 5:20 PM PREMIX OPERATOR CONCENTRATE Mei Brizuela NP POINT OF CARE TEST ORDERABLES Fi nal Result documented in this encounter Visit Diagnoses Diagnosis Strep pharyngitis- Primary Exposure to strep throat Contact with or exposure to other communicable diseases documented in this encounter Historical Medications * This list may reflect changes made after this encounter. mesalamine (CANASA) 1,000 mg suppository 04/25/2022 fluticasone propionate (FLONASE) 50 mcg/actuation nasal spray SPRAY 2 SPRAYS INTO EACH NOSTRIL DAILY 04/09/2022 methylPREDNISolon e (MEDROL DOSEPACK) 4 mg Dosepack TAKE 6 TABLETS ON DAY 1 DIRECTED ON PACKAGE AND DECREASE BY 1 TAB EACH DAY FOR A TOTAL OF 6 DAYS 04/26/2022 4 predniSONE (DELTASONE) 20 mg tablet TAKE 1 TABLET ORALLY DAILY 04/09/2022 4 added in this encounter Care Teams Feller Seam Operator Relationship Specialty Start Date End Date Tad Horowitz MD [address] [place] [place] [address] PCP - General 05/28/21 Tad Horowitz MD [address] [place] [address] Family Medicine 12/01/20 documented as of this encounter
--- OUTSIDE RECORDS SUMMARY | 2024-02-29 13:42 | XMS_ITS | Encounter Summary ---
Author Organization [facility] Address [address] [facility] [address] [place] [address] Care Team Providers Care Concrete Craftsman Name Role Phone Tad Horowitz MD Unavailable [phone] Tad Horowitz MD Primary Care Provider Reason for Visit * Reason Comments Sinus Problem Sinus congestion, le ft ear pressure, scratchy throat, pt states he feels warm, no exp. Symptom onset 02/08/2022. Patient has taken Sudafed OTC for his symptoms. Patient does not want testing. Encounter Details Date Type Department Care Team (Late st Contact Info) Description 02/08/2022 5:15 PM WHEEL SETTER Office Visit [facility] [place] [address] [place] [address] Mei Brizuela NP [address] [place] [address] Non-recurrent acute suppurative otitis media of right ear without spontaneous rupture of tympanic membrane (Primary Dx) Social History Tobacco Use Types Packs/Day Years Used Date Smoking Tobacco: Former Cigarettes Smokeless Tobacco: Never Sex and Gender Information Value Date Recorded Sex Assigned at Not on file Legal Sex Male 10:04 PM WHEEL SETTER Gender Identity Male 12/01/2020 1:31 PM CDT Sexual Orientation Straight 12/01/2020 1: 31 PM CDT documented as of this encounter Last Filed Vital Signs Vital Sign Reading Time Taken Comments Blood Pressure 118/72 02/08/2022 5:48 PM WHEEL SETTER Pulse 93 02/08/2022 5:48 PM WHEEL SETTER Temperature 36.2 ??C (97.2 ??F) 02/08/2022 5:48 PM CS T Respiratory Rate 16 02/08/2022 5:48 PM WHEEL SETTER Oxygen Saturation 98% 02/08/2022 5:48 PM WHEEL SETTER Inhaled Oxygen Concentration - - Weight 82.1 kg (181 lb) 02/08/2022 5:48 PM WHEEL SETTER Height 175.3 cm (5' 9 ) 02/08/2022 5:48 PM WHEEL SETTER Body Mass Index 26.73 02/08/2022 5:48 PM WHEEL SETTER documented in this encounter Patient Instructions * Patient Instructions* Mei Brizuela NP - 02/08/2022 5:15 PM WHEEL SETTER The treatment for ear infections (otitis media) [...] worsen or are not improving as planned. L SETTER documented in this encounter Ordered Prescriptions Prescription Sig Dispense Quantity Refills Last Filled Start Date End Date amoxicillin (AMOXIL) 875 mg tabletIndications: Non-recurrent acute suppurative otitis media of right ear without spontaneous rupture of tympanic membrane Take 1 tablet (875 mg total) by mouth 2 (two) times a day for 10 days 20 tablet 02/08/2022 02/18/2022 documented in this encounter Progress Notes * Mei Brizuela NP - 02/08/2022 5:15 PM CST Images from the original note were not included. Subjective/Objective Patient ID: Shen Thomas is a 31 y.o. male. Chief Complaint Sinus Problem (Sinus congestion, left ear pressure, scratchy throat, pt states he feels warm, no exp. Symptom onset 02/08/2022. Patient has taken Sudafed OTC for his symptoms. Patient does not want testing. ) Patient presents to the [facility] with a 4 day history of rhinorrhea, sinus congestion, left ear pressure and scratchy throat. He has taken Sudafed OTC for his symptoms. Declines testing. Sinus Problem Associated symptoms include congestion, ear pain and a sore throat. Pertinent negatives include no coughing, headaches, shortness of breath or sinus pressure. Review of Systems Constitutional: Negative for activity change, appetite change, fatigue and fever. HENT: Positive for congestion, ear pain and sore throat. Negative for ear discharge, postnasal drip, rhinorrhea and sinus [...] tenderness or frontal sinus tenderness. Mouth/Throat: Lips: [place]. Mouth: Mucous membranes are moist. Pharynx: Oropharyngeal exudate and posterior oropharyngeal erythema present. Tonsils: 2+ on the right. 2+ on the [...] Thought content normal. Judgment: Judgment normal. Vitals: 02/08/22 1748 BP: 118/72 BP Location: Left arm Patient Position: Sitting Pulse: 93 Resp: 16 Temp: 36.2 ??C (97.2 ??F) TempSrc: Temporal SpO2: 98% Weight: 82.1 kg (181 lb) Height: 175.3 cm (5' 9 ) Assessment/Plan Antibiotics as prescribed Tylenol/Motrin as needed for pain Follow up with PCP as needed Reviewed ER precautions Diagnoses and all orders for this visit: Non-recurrent acute suppurative otitis media of right ear without spontaneous rupture of tympanic membrane (Primary) - amoxicillin (AMOXIL) 875 mg tablet; Take 1 tablet (875 mg total) by mouth 2 (two) times a day for10 days No results found for this or any previous visit (from the past 4 hour(s)). Patient Instructions The treatment for ear infections (otitis media) [...] worsen or are not improving as planned. Disposition Treatment plan including expectations, follow up, and return precautions discussed with patient/parent, verbalizes understanding. Medication dosage, use, and potential adverse reactions discussed with patient/parent. Advised to follow up with PCP if symptoms do not resolve as expected or sooner if condition worsens. Signs/symptoms warranting ER evaluation reviewed. Patient and/or guardian was given an opportunity to ask questions, questions answered. Mei Brizuela NP L SETTER documented in this encounter Plan of Treatment Not on file documented as of this encounter Visit Diagnoses Diagnosis Non-recurrent acute suppurative otitis media of right ear without spontaneous rupture of tympanic membrane- Primary documented in this encounter Care Teams Concrete Craftsman Relationship Specialty Start Date End Date Tad Horowitz MD [address] [place] [address] PCP - General 05/28/21 Tad Horowitz MD [address] [place] [place] [address] Family Medicine 12/01/20 documented as of this encounter
--- OUTSIDE RECORDS SUMMARY | 2024-02-29 13:42 | XMS_ITS | Encounter Summary ---
Author Organization [facility] Address [address] [facility] [address] [place] [address] Care Team Providers Care Site Controller Name Role Phone No, Physician Primary Care Provider [phone] Tad Horowitz MD Unavailable Reason for Visit * Reason Onset Date Comments Test Results 02/17/2021 Encounter Details Date Type Department Care Team (Late st Contact Info) Description 02/17/2021 Telephone [facility] [address] [place] [address] Lilliam Jackson MA Test Results Social History Tobacco Use Types Packs/Day Years Used Date Smoking Tobacco: Former Cigarettes Smokeless Tobacco: Never Sex and Gender Information Value Date Recorded Sex Assigned at Not on file Legal Sex Male 10:04 PM TOWER WATCHMAN Gender Identity Male 12/01/2020 1:31 PM CDT Sexual Orientation Straight 12/01/2020 1: 31 PM CDT documented as of this encounter Miscellaneous Notes * Telephone Encounter - Lilliam Jackson MA - 02/17/2021 11:14 AM CST Patient was notified that his Covid-19 test was negative. Patient was informed that he should continue to self isolate until at least 10 days have passed since the onset of his symptoms and he has been fever free without the use of fever reducing medications for at least 24 hours. Patient verbalized understanding. R WATCHMAN * Telephone Encounter - Lilliam Jackson MA - 02/17/2021 11:13 AM CST ----- Message from Anay Edwards NP sent at 02/17/2021 11:02 AM TOWER WATCHMAN ----- [facility] CC Pool, [facility] Pool, please contact patient regarding negative covid results. Please instruct : If you are NEGATIVE, AND: 1. NO symptoms and NO known/possible exposure: NO need to isolate. 2. NO symptoms and YES known/possible exposure: quarantine for 14 days after last potential exposure. A negative test of a specific day cannot be used to release from quarantine since the patience could become positive during the 14- day period. 3. YES symptoms and NO known/possible exposure: quarantine until without fever for 24 hours AND symptoms improve. 4. YES symptoms and YES known/possible exposure: you must quarantine for 14 days from last known exposure date. A negative test of a specific day cannot be used to release from quarantine since the patient could become positive during the 14 day period. 5. YES symptoms and YES known/possible exposure and HAVE BEEN VACCINATED: you ONLY QUARANTINE untilyou are fever free AND symptoms improve. 6. NO symptoms and YES known/possible exposure and HAVE BEEN VACCINATED: NO RECOMMENDATION FOR QUARANTINE. e contact patient regarding negative covid results. Please instruct to follow the 10 day and24 hour rule. R WATCHMAN documented in this encounter Plan of Treatment Not on file documented as of this encounter Visit Diagnoses Not on filedocumented in this encounter Additional Health Concerns Infection Onset Date Last Indicated Resolved Time COVID: Suspected 02/16/2021 02/16/2021 02/17/2021 10:53 AM TOWER WATCHMAN documented as of this encounter Care Teams Site Controller Relationship Specialty Start Date End Date No, Physician PCP - General 12/01/20 05/27/21 Tad Horowitz MD [address] [facility] [place] [address] Family Medicine 12/01/20 documented as of this encounter
--- OUTSIDE RECORDS SUMMARY | 2024-02-29 13:42 | XMS_ITS | Encounter Summary ---
Author Organization [facility] Address [address] [facility] [address] [place] [address] Care Team Providers Care Sediment Remediation Consultant Name Role Phone No, Physician Primary Care Provider [phone] aTd Horowitz MD Unavailable [phone] Reason for Visit * Reason Onset Date Comments Test Results 04/04/2021 Encounter Details Date Type Department Care Team (Late st Contact Info) Description 04/04/2021 Telephone [facility] [place] [address] [place] [id number] aKylan Herrera RN Test Results Social History Tobacco Use Types Packs/Day Years Used Date Smoking Tobacco: Former Cigarettes Smokeless Tobacco: Never Sex and Gender Information Value Date Recorded Sex Assigned at Not on file Legal Sex Male 10:04 PM MOVEMENT THERAPIST Gender Identity Male 12/01/2020 1:31 PM CDT Sexual Orientation Straight 12/01/2020 1: 31 PM CDT documented as of this encounter Miscellaneous Notes * Telephone Encounter - Kaylan Herrera MA - 04/04/2021 3:03 PM MOVEMENT THERAPIST Pt returned call, he is aware of negative COVID result, to continue self isolation for 5 days from onset of symptoms and 24 hours fever free without the use of fever reducers. Pt verbalized understanding of all the above. MENT THERAPIST * Telephone Encounter - Kaylan Herrera MA - 04/04/2021 10:33 AM MOVEMENT THERAPIST LM for pt to return call to clinic to make aware. MENT THERAPIST * Telephone Encounter - Kaylan Herrera MA - 04/04/2021 10:32 AM MOVEMENT THERAPIST ----- Message from Sangeetha Ruffin NP sent at 04/04/2021 8:51 AM MOVEMENT THERAPIST ----- Please notify patient of negative COVID-19 test. If patient was symptomatic, patient should continue to self isolate until at least 5 days have passed since symptom onset and they have been fever free without the use of fever reducing medications for at least 24 hours. MENT THERAPIST documented in this encounter Plan of Treatment Not on file documented as of this encounter Visit Diagnoses Not on filedocumented in this encounter Additional Health Concerns Infection Onset Date Last Indicated Resolved Time COVID: Suspected 04/03/2021 04/03/2021 04/04/2021 8:16 AM MOVEMENT THERAPIST documented as of this encounter Care Teams Sediment Remediation Consultant Relationship Specialty Start Date End Date No, Physician PCP - General 12/01/20 05/27/21 Tad Horowitz MD [address] [facility] DEPT [place] [address] Family Medicine 12/01/20 documented as of this encounter
--- OUTSIDE RECORDS SUMMARY | 2024-02-29 13:42 | XMS_ITS | Encounter Summary ---
Author Organization [facility] Medical [facility] Address [address] [facility] [address] [place] [address] Care Team Providers Care Weaver Hand Name Role Phone Tad Horowitz MD Unavailable [phone] Tad Horowitz MD Primary Care Provider [phone] Reason for Visit * Reason Comments COVID-19 EVALUATION [facility]- Sinus Congestio n, Fever (100.5 this morning), Losing voice, and Itchy eyes. is also ill (congestion), Onset 06/16/21, OTC allergy meds and sudafed. Not Vaccinated, No Exp, Covid Hx 04/2021. Encounter Details Date Type Department Care Team (Late st Contact Info) Description 06/21/2021 9:30 AM CDT Office Visit [facility] [place] [address] [place] [place] [address] [address] Anay Bañuelos, TABLE GAMES DUAL RATE SUPERVISOR [address] [place], [place] [id number] Acute non-recurrent frontal sinusitis (Primary Dx); Fever, unspecified fever cause Social History Tobacco Use Types Packs/Day Years Used Date Smoking Tobacco: Former Cigarettes Smokeless Tobacco: Never Sex and Gender Information Value Date Recorded Sex Assigned at Not on file Legal Sex Male 10:04 PM BATTERY FILLER Gender Identity Male 12/01/2020 1:31 PM CDT Sexual Orientation Straight 12/01/2020 1: 31 PM CDT documented as of this encounter Last Filed Vital Signs Vital Sign Reading Time Taken Comments Blood Pressure 114/62 06/21/2021 9:42 AM CDT Pulse 110 06/21/2021 9:42 AM CDT Temperature 36.8 ??C (98.2 ??F) 06/21/2021 9:42 AM CD T Respiratory Rate 20 06/21/2021 9:42 AM CDT Oxygen Saturation 99% 06/21/2021 9:42 AM CDT Inhaled Oxygen Concentration - - Weight 82.3 kg (181 lb 6.4 oz) 06/21/2021 9:42 A M CDT Height 175.3 cm (5' 9 ) 06/21/2021 9:42 AM CDT Body Mass Index 26.79 06/21/2021 9:42 AM CDT documented in this encounter Patient Instructions * Patient Instructions* Anay Bañuelos NP - 06/21/2021 9:30 AM CDT Research has proven that unless you are [...] same utensils or glass, and use hand hydroponics worker before touching people or common surfaces. - [...] high fever >101, go to the EmergencyRoom. Results for orders placed or performed in visit on 06/21/21 POCT influenza A/B Result Value Ref Range Rapid Influenza A Ag Negative Negative, Invalid Rapid Influenza B Ag Negative Negative, Invalid documented in this encounter Ordered Prescriptions Prescription Sig Dispense Quantity Refills Last Filled Start Date End Date sulfamethoxazole-t rimethoprim (BACTRIM DS) 800-160 mg per tabletIndications: Acute non-recurrent frontal sinusitis Take 1 tablet by mouth 2 (two) times a day for 10 days 20 tablet 06/21/2021 07/01/2021 documented in this encounter Progress Notes * Anay Bañuelos NP - 06/21/2021 9:30 AM CDT Images from the original note were not included. Subjective/Objective Patient ID: Shen Thomas is a 30 y.o. male. Chief Complaint COVID-19 EVALUATION ([facility]- Sinus Congestion, Fever (100.5 this morning), Losing voice, and Itchy eyes. is also ill (congestion), Onset 06/16/21, OTC allergy meds and sudafed. Not Vaccinated, No Exp, Covid Hx 04/2021. ) Pt c/o sinus congestion, sinus pressure, sore throat, mild fever off/on. No N/V/D. and child ill with similar symptoms. Often gets sinus infections in spring. Had COVID 2 months ago. Review of Systems Constitutional: Positive for fever (100). Negative for activity change, appetite change and fatigue. HENT: Positive for congestion, ear pain and sinus pressure. Negative for ear discharge, postnasal drip, rhinorrhea and sore throat. Eyes: Negative for discharge. Respiratory: Positive for cough. Negative for shortness of breath. Gastrointestinal: Negative for diarrhea, [...] normal. A middle ear effusion is present. Left Ear: Ear canal and external ear normal. A middle ear effusion is present. Nose: Congestion and rhinorrhea present. Right Sinus: Maxillary sinus tenderness and frontal sinus tenderness present. Left Sinus: Maxillary sinus tenderness and frontal sinus tenderness present. Mouth/Throat: Lips: [place]. Mouth: Mucous membranes are moist. Pharynx: Posterior oropharyngeal erythema present. Eyes: General: Right [...] side of head: No tonsillar adenopathy. Cervical: Cervical adenopathy present. Left cervical: Superficial cervical adenopathy present. Skin: General: Skin is warm and dry. Findings: No rash. Neurological: Mental Status: He is alert and oriented to person, place, and time. Mental status is at baseline. Psychiatric: Attention and Perception: Attention normal. Mood and Affect: Mood normal. Behavior: Behavior normal. Behavior is cooperative. Thought Content: Thought content normal. Judgment: Judgment normal. Vitals: 06/21/21 0942 BP: 114/62 BP Location: Left arm Patient Position: Sitting Pulse: 110 Resp: 20 Temp: 36.8 ??C (98.2 ??F) TempSrc: Oral SpO2: 99% Weight: 82.3 kg (181 lb 6.4 oz) Height: 175.3 cm (5' 9 ) Assessment/Plan Diagnoses and all orders for this visit: Acute non-recurrent frontal sinusitis (Primary) - sulfamethoxazole-trimethoprim (BACTRIM DS) 800-160 mg per tablet; Take 1 tablet by mouth 2 (two) times a day for 10 days Fever, unspecified fever cause - POCT influenza A/B Results for orders placed or performed in visit on 06/21/21 POCT influenza A/B Result Value Ref Range Rapid Influenza A Ag Negative Negative, Invalid Rapid Influenza B Ag Negative Negative, Invalid Patient Education: Research has proven that unless you are [...] same utensils or glass, and use hand hydroponics worker before touching people or common surfaces. - [...] high fever >101, go to the EmergencyRoom. Disposition ??? Treatment plan including expectations, follow [...] an opportunity to ask questions, questions answered. Anay Bañuelos NP documented in this encounter Plan of Treatment Not on file documented as of this encounter Procedures Procedure Name Priority Date/Time Associated Diagnosis Comments POCT INFLUENZA A/B Routine 06/21/2021 10 :04 AM CDT Fever, unspecified fever cause documented in this encounter Results * POCT influenza A/B (06/21/2021 10:04 AM CDT) Rapid Influenza A Ag Negative Negative, Invalid Rapid Influenza B Ag Negative Negative, Invalid Nasopharyngeal 06/21/2021 10 :04 AM CDT Anay Bañuelos TABLE GAMES DUAL RATE SUPERVISOR POINT OF CARE TEST ORDERABL ES Final Result documented in this encounter Visit Diagnoses Diagnosis Acute non-recurrent frontal sinusitis- Primary Fever, unspecified fever cause documented in this encounter Care Teams Weaver Hand Relationship Specialty Start Date End Date Tad Horowitz MD [address] [place] [address] PCP - General 05/28/21 Tad Horowitz MD [address] [place] [address] Family Medicine 12/01/20 documented as of this encounter
--- OUTSIDE RECORDS SUMMARY | 2024-02-29 13:42 | XMS_ITS | Encounter Summary ---
Author Organization 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 Not vaccinated. Encounter Details Date Type Department Care Team (Late st Contact Info) Description 12/01/2020 1:00 PM CDT Office Visit [facility] [address] [place] [id number] Anay Edwards, [place] [address] [place] [id number] Seasonal allergic rhinitis, unspecified trigger (Primary Dx) Social History Tobacco Use Types Packs/Day Years Used Date Smoking Tobacco: Former Cigarettes Smokeless Tobacco: Never Sex and Gender Information Value Date Recorded Sex Assigned at Not on file Legal Sex Male 10:04 PM [employer] Gender Identity Male 12/01/2020 1:31 PM CDT Sexual Orientation Straight 12/01/2020 1: 31 PM CDT documented as of this encounter Last Filed Vital Signs Vital Sign Reading Time Taken Comments Blood Pressure 124/76 12/01/2020 1:04 PM CDT Pulse 93 12/01/2020 1:04 PM CDT Temperature 37.3 ??C (99.2 ??F) 12/01/2020 1:04 PM CD T Respiratory Rate 18 12/01/2020 1:04 PM CDT Oxygen Saturation 97% 12/01/2020 1:04 PM CDT Inhaled Oxygen Concentration - - Weight 85.4 kg (188 lb 3.2 oz) 12/01/2020 1:04 P M CDT Height 177.8 cm (5' 10 ) 12/01/2020 1:04 PM CDT Body Mass Index 27 12/01/2020 1:04 PM CDT documented in this encounter Patient Instructions * Patient Instructions* Anay Edwards NP - 12/01/2020 1:00 PM CDT To help with your itchy watery eyes and nasal drainage, you will need to take an otc antihistamine such as Benadryl, Claritin or zyrtec. Benadryl is sedating. You may also find a nose spray, such as Flonase to be helpful. You can purchase it over the counter. If your eye irritation is not relieved with otc medication, you can also use Pataday otc. Allergies can flare with the change of weather/ Season or around harvest time. If your symptoms worsen, you will need to follow up with your PCP. documented in this encounter Progress Notes * Anay Edwards NP - 12/01/2020 1:00 PM CDT Images from the original note were not included. Patient ID: Shen Thomas is a 30 y.o. male followed by No, Physician Patient was wearing the following PPE: mask. MA was wearing the following PPE: mask, gown, gloves and face shield. Provider was wearing the following PPE: mask, gown, gloves and face shield. Chief Complaint Patient presents with ??? COVID-19 EVALUATION sx onset yesterday morning 11/30/20; sinus congestion w/ sinus pressure and itchy eyes. Not vaccinated. URI This is a new problem. The current episode started yesterday. The problem has been gradually worsening. There has been no fever. Associated symptoms include congestion, headaches and rhinorrhea. Pertinent negatives include no abdominal pain, chest pain, coughing, diarrhea, dysuria, ear pain, nausea, neck pain, plugged ear sensation, rash, shortness of breath, sinus pain, sneezing, sore throat, vomiting or wheezing. He has tried antihistamine for the symptoms. Patient presents to clinic for assessment of Chief Complaint Patient presents with ??? COVID-19 EVALUATION sx onset yesterday morning 11/30/20; sinus congestion w/ sinus pressure and itchy eyes. Not vaccinated. . Patient reports NASAL CONGESTION, NASAL DRAINAGE, SINUS PRESSURE and EYE IRRITATION Patient reports this has been going on for 2 days. Patient with sick or suspected COVID-19 contacts: No Patient has following risks for COVID-19: none Patient has not been fully vaccinated for Covid-19. Patient works [employer] Patient lives at home with Review of Systems Constitutional: Negative for appetite change, chills, fatigue and fever. HENT: Positive for congestion, postnasal drip, rhinorrhea and sinus pressure. Negative for ear pain, sinus pain, sneezing, sore throat and trouble swallowing. Eyes: Positive for itching. Negative for pain, discharge and redness. Respiratory: Negative for cough, chest tightness, shortness of breath and wheezing. Cardiovascular: Negative for chest pain and leg swelling. Gastrointestinal: Negative for abdominal pain, constipation, diarrhea, nausea and vomiting. Genitourinary: Negative for difficulty urinating, dysuria, frequency and urgency. Musculoskeletal: Negative for back pain, myalgias and neck pain. Skin: Negative for rash and wound. Allergic/Immunologic: Negative for environmental allergies and food allergies. Neurological: Positive for headaches. Negative for dizziness and weakness. Current Outpatient Medications Medication Sig Dispense Refill ??? mesalamine (CANASA) 1,000 mg suppository Insert 1,000 mg into the rectum nightly ??? omeprazole (PriLOSEC) 20 mg capsule Take 20 mg by mouth daily No current facility-administered medications for this visit. Past Medical History: Diagnosis Date ??? GERD (gastroesophageal reflux disease) ??? No pertinent past medical history ??? Ulcerative colitis (HCC) There is no immunization history on file for this patient. Social History Tobacco Use Smoking Status Former Smoker ??? Types: Cigarettes Smokeless Tobacco Never Used Vitals: 12/01/20 1304 BP: 124/76 BP Location: Right arm Patient Position: Sitting Pulse: 93 Resp: 18 Temp: 37.3 ??C (99.2 ??F) TempSrc: Temporal SpO2: 97% Weight: 85.4 kg (188 lb 3.2 oz) Height: 177.8 cm (5' 10 ) Physical Exam Vitals and nursing note reviewed. Constitutional: General: He is awake. Appearance: Normal appearance. He is well-developed, well-groomed and normal weight. HENT: Head: Normocephalic and atraumatic. Right Ear: Tympanic membrane and external ear normal. Left Ear: Tympanic membrane and external ear normal. Nose: Nose normal. Right Sinus: No maxillary sinus tenderness or frontal sinus tenderness. Left Sinus: No maxillary sinus tenderness or frontal sinus tenderness. Mouth/Throat: Lips: [place]. Mouth: Mucous membranes are moist. Pharynx: Oropharynx is clear. Eyes: General: Lids are normal. Conjunctiva/sclera: Conjunctivae normal. Pupils: Pupils are equal, round, and reactive to light. Cardiovascular: Rate and Rhythm: Normal rate and regular rhythm. Pulmonary: Effort: Pulmonary effort is normal. Breath sounds: Normal breath sounds. No wheezing. Abdominal: General: Bowel sounds are normal. Palpations: Abdomen is soft. Musculoskeletal: General: Normal range of motion. Cervical back: Normal range of motion and neck supple. Skin: General: Skin is warm and dry. Capillary Refill: Capillary refill takes less than 2 seconds. Neurological: Mental Status: He is alert and oriented to person, place, and time. Psychiatric: Behavior: Behavior normal. Behavior is cooperative. Assessment/Plan Diagnoses and all orders for this visit: Seasonal allergic rhinitis, unspecified trigger (Primary) - COVID-19 POC Results for orders placed or performed in visit on 12/01/20 COVID-19 POC Result Value Ref Range COVID-19 Ag POC (BD Veritor) Presumptive Negative Presumptive Negative, Invalid To help with your itchy watery eyes and nasal drainage, you will need to take an otc antihistamine such as Benadryl, Claritin or zyrtec. Benadryl is sedating. You may also find a nose spray, such as Flonase to be helpful. You can purchase it over the counter. If your eye irritation is not relieved with otc medication, you can also use Pataday otc. Allergies can flare with the change of weather/ Season or around harvest time. If your symptoms worsen, you will need to follow up with your PCP. Discussed COVID testing reasoning Discussed symptomatic relief of symptoms Discussed need to return to ER for further evaluation including worsening fevers, shortness of breath, of other concerning symptoms Advised to rest and stay adequately hydrated Orders Placed This Encounter Procedures ??? COVID-19 POC Order Specific Question: Is the Patient experiencing symptoms consistent with COVID? Answer: Yes Order Specific Question: Date of Symptom Onset Answer: 11/30/2020 Order Specific Question: Is the patient hospitalized? Answer: No Order Specific Question: Is the patient admitted to an ICU? Answer: No Order Specific Question: Is this the first COVID-19 test for this patient? Answer: No Order Specific Question: Does the patient currently work in a healthcare facility with direct patient contact? Answer: No Order Specific Question: Is the patient a resident of a congregate care or living setting? Answer: No Order Specific Question: Is the patient ? Answer: No Anay Edwards NP documented in this encounter Plan of Treatment Not on file documented as of this encounter Procedures Procedure Name Priority Date/Time Associated Diagnosis Comments COVID-19 POC Routine 12/01/2020 1:39 PM CDT Seasonal allergic rhinitis, unspecified trigger documented in this encounter Results * COVID-19 POC (12/01/2020 1:39 PM CDT) COVID-19 Ag POC (BD Veritor) Presumptive Negative Presumptive Negative, Invalid [facility] Nasal 12/01/2020 1:39 PM CDT us Anay Edwards NP POINT OF CARE TEST ORDERABLES Final Result [facility] [address] [place] [address] documented in this encounter Visit Diagnoses Diagnosis Seasonal allergic rhinitis, unspecified trigger- Primary documented in this encounter Historical Medications * This list may reflect changes made after this encounter. omeprazole (PriLOSEC) 20 mg capsule Take 20 mg by mouth daily 04/03/2021 mesalamine (CANASA) 1,000 mg suppositoryIndica tions:Ulcerative Proctitis Insert 1,000 mg into the rectum nightly 04/03/2021 added in this encounter Additional Health Concerns Infection Onset Date Last Indicated Resolved Time COVID: Suspected 12/01/2020 12/01/2020 12/01/2020 1:41 PM CDT documented as of this encounter Care Teams French Folding Machine Operator Relationship Specialty Start Date End Date No, Physician PCP - General 12/01/20 05/27/21 Tad Horowitz MD [address] [facility] [place] [address] Family Medicine 12/01/20 documented as of this encounter
--- OUTSIDE RECORDS SUMMARY | 2024-02-29 13:42 | XMS_ITS | Encounter Summary ---
Author Organization [facility] Address [address] [facility] [address] [facility] [address] [place] [id number] Care Team Providers Care Chief Operating Officer Name Role Phone Tad Horowitz MD Primary Care Provider [phone] Reason for Visit * Reason Comments COVID-19 EVALUATION sx onset 06/25/20; c/ o sinus pressure, above eyes, left ear pressure Encounter Details Date Type Department Care Team (Late st Contact Info) Description 06/29/2020 10:00 AM CDT Office Visit [facility] [address] [place] [id number] Pebbles Rosales, HARMEET [address] [place] [address] Acute effusion of left ear (Primary Dx); Environmental and seasonal allergies Social History Tobacco Use Types Packs/Day Years Used Date Smoking Tobacco: Former Cigarettes Smokeless Tobacco: Never Sex and Gender Information Value Date Recorded Sex Assigned at Not on file Legal Sex Male 10:04 PM [employer] Gender Identity Male 12/01/2020 1:31 PM CDT Sexual Orientation Straight 12/01/2020 1: 31 PM CDT documented as of this encounter Last Filed Vital Signs Vital Sign Reading Time Taken Comments Blood Pressure 122/68 06/29/2020 10:22 AM CDT Pulse 92 06/29/2020 10:22 AM CDT Temperature 37.3 ??C (99.1 ??F) 06/29/2020 10:22 AM C DT Respiratory Rate 18 06/29/2020 10:22 AM CDT Oxygen Saturation 98% 06/29/2020 10:22 AM CDT Inhaled Oxygen Concentration - - Weight 83.2 kg (183 lb 6.4 oz) 06/29/2020 10:22 AM CDT Height 177.8 cm (5' 10 ) 06/29/2020 10:22 AM CDT Body Mass Index 26.32 06/29/2020 10:22 AM CDT documented in this encounter Patient Instructions * Patient Instructions* Pebbles Rosales, HARMEET - 06/29/2020 10:00 AM CDT Images from the original note were not included. ??? Take amoxicillin as prescribed for middle ear effusion ??? Skhd-jjg-atafits antihistamine such as Benadryl, Claritin or Zyrtec will aid in alleviation of symptoms such as itchy, watery eyes and nasal drainage. Benadryl can be sedating. ??? Nasal spray, such as Flonase may also aid in nasal congestion. This may also be purchased over the counter. ??? Allergies can flare with the change of weather/ season or around harvest time. The [facility] area is known to have severe allergens. ??? If your symptoms worsen or continue, you will need to follow up with your PCP. Patient Education Ear Infection MANAGER AGRICULTURE: An ear infection is also called otitis media. An ear infection may be caused by blocked or swollen eustachian tubes. Eustachian tubes connect the middle ear to the back of the nose and throat. They drain fluid from the middle ear. With an ear infection, fluid builds up and is infected by germs. Thegerms grow easily in fluid trapped behind the eardrum. Common symptoms include the following: ?? Ear pain ?? Fever or a headache ?? Trouble hearing ?? Ringing or buzzing in your ear ?? Plugged ear or an ear that feels full ?? Dizziness ?? Nausea or vomiting Call 911 or have someone call 911 for the following: ?? You have a seizure. Seek immediate care for the following symptoms: ?? You have a fever and a stiff neck. Contact your healthcare provider if: ?? Your ear pain gets worse or does not go away, even after treatment. ?? The outside of your ear is red or swollen. ?? You are vomiting or have diarrhea. ?? You have fluid coming from your ear. ?? You have questions or concerns about your condition or care. Medicines: You may need any of the following: ?? Acetaminophen decreases [...] the medicine label and follow directions. ?? Ear drops help treat your ear pain. ?? Antibiotics help treat a bacterial infection that caused your ear infection. ?? Take your medicine as directed. Contact your healthcare provider if you think your medicine is not helping or if you have side effects. Tell him or her if you are allergic to any medicine. Keep a list of the medicines, vitamins, and herbs you take. Include the amounts, and when and why you take them. Bring the list or the pill bottles to follow-up visits. Carry your medicine list with you in case of an emergency. Manage your symptoms: ?? Apply heat on your ear for 15 to 20 minutes, 3 to 4 times a day or as directed. Heat helps decrease pain. ?? Apply ice on your ear for 15 to 20 minutes, 3 to 4 times a day for 2 days or as directed. Use anice pack, or put crushed ice in a plastic bag. Cover it with a towel before you apply it to your ear. Ice decreases swelling and pain. Prevent an ear infection: ?? Wash your hands often. Use soap and water. Wash your hands after you use the bathroom, change a child's diapers, or sneeze. Wash your hands before you prepare or eat food. ?? Stay away from people who are ill. Some germs are easily and quickly spread through contact. Follow up with your healthcare provider as directed: Write down your questions so you remember to ask them during your visits. ?? 2017 Group [employer] Information is for End User's use only and may not be sold, redistributed or otherwise used for commercial purposes. All illustrations and images included in CareNotes?? are the copyrighted property of [employer], [employer]. or [employer]. The above information is an public aid eligibility assistant only. It is not intended as medical advice for individual conditions or treatments. Talk to your doctor, nurse or pharmacist before following any medical regimen to see if it is safe and effective for you. Patient Education Allergies MANAGER AGRICULTURE: Allergies are an immune system reaction to a substance called an allergen. Your immune system sees the allergen as harmful and attacks it. Common signs and symptoms include the following: ?? Mild symptoms include sneezing and a runny, itchy, or stuffy nose. You may also have swollen, watery, or itchy eyes, or skin itching. You may have swelling or pain where an insect bit or stung you. ?? Anaphylaxis symptoms include trouble breathing or swallowing, a rash or hives, or severe swelling. You may also have a cough, wheezing, or feel lightheaded or dizzy. Anaphylaxis is a sudden, life-threatening reaction that needs immediate treatment. Call 911 for signs or symptoms of anaphylaxis, such as trouble breathing, swelling in your mouth orthroat, or wheezing. You may also have itching, a rash, hives, or feel like you are going to faint. Seek care immediately if: ?? You have tingling in your hands or feet. ?? Your skin is red or flushed. Contact your healthcare provider if: ?? You have questions or concerns about your condition or care. Steps to take for signs or symptoms of anaphylaxis: ?? Immediately give 1 shot of epinephrine only into the outer thigh muscle. ?? Leave the shot in place as directed. Your healthcare provider may recommend you leave it in place for up to 10 seconds before you remove it. This helps make sure all of the epinephrine is delivered. ?? Call 911 and go to the emergency department, even if the shot improved symptoms. Do not drive yourself. Bring the used epinephrine shot with you. Treatment for allergies may include any of the following: ?? Antihistamines help decrease itching, sneezing, and swelling. You may take them as a pill or usedrops in your nose or eyes. ?? Decongestants help your nose feel less stuffy. ?? Steroids decrease swelling and redness. ?? Topical treatments help decrease itching or swelling. You also may be given nasal sprays or eyedrops. ?? Epinephrine is medicine used to treat severe allergic reactions such as anaphylaxis. ?? Desensitization gets your body used to allergens you cannot avoid. Your healthcare provider willgive you a shot that contains a small amount of an allergen. He or she will treat any allergic reaction you have. Your provider will give you more of the allergen a little at a time until your body gets used to it. Your reaction to the allergen may be less serious after this treatment. Your healthcare provider will tell you how long to get the shots. Safety precautions to take if you are at risk for anaphylaxis: ?? Keep 2 shots of epinephrine with you at all times. You may need a second shot, because epinephrine only works for about 20 minutes and symptoms may return. Your healthcare provider can show you and family members how to give the shot. Check the expiration date every month and replace it before it expires. ?? Create an action plan. Your healthcare provider can help you create a written plan that explainsthe allergy and an emergency plan to treat a reaction. The plan explains when to give a second epinephrine shot if symptoms return or do not improve after the first. Give copies of the action plan and emergency instructions to family members and work staff. Show them how to give a shot of epinephrine. ?? Be careful when you exercise. If you have had exercise-induced anaphylaxis, do not exercise right after you eat. Stop exercising right away if you start to develop any signs or symptoms of anaphylaxis. You may first feel tired, warm, or have itchy skin. Hives, swelling, and severe breathing problems may develop if you continue to exercise. ?? Carry medical alert identification. Wear medical alert jewelry or carry a card that explains theallergy. Ask your healthcare provider where to get these items. ?? Inform all healthcare providers of the allergy. This includes dentists, nurses, doctors, and surgeons. Manage allergies: ?? Use nasal rinses as directed. Rinse with a saline solution daily. This will help clear allergensout of your nose. Use distilled water if possible. You can also boil tap water and let it cool before you use it. Do not use tap water that has not been boiled. ?? Do not smoke. Allergy symptoms may decrease if you are not around smoke. Nicotine and other chemicals in cigarettes and cigars can cause lung damage. Ask your healthcare provider for information if you currently smoke and need help to quit. E-cigarettes or smokeless tobacco still contain nicotine. Talk to your healthcare provider before you use these products. Prevent an allergic reaction: ?? Do not go outside when pollen counts are high if you have seasonal allergies. Your symptoms may be better if you go outside only in the morning or evening. Use your air conditioner, and change airfilters often. ?? Avoid dust, fur, and mold. Dust and vacuum your home often. You may want to wear a mask when youvacuum. Keep pets in certain rooms, and bathe them often. Use a dehumidifier (machine that decreases moisture) to help prevent mold. ?? Do not use products that contain latex if you have a latex allergy. Use nonlatex gloves if you work in healthcare or in food preparation. Always tell healthcare providers about a latex allergy. ?? Avoid areas that attract insects if you have an insect bite or sting allergy. Areas include trash cans, gardens, and picnics. Do not wear bright clothing or strong scents when you will be outside. ?? Prevent an allergic reaction caused by food. You may have a reaction if your food is not prepared safely. For example, you could be served food that touched your trigger food during preparation. This is called cross-contamination. Kitchen tools can also cause cross-contamination. You may also eat baked foods that contain a trigger food you do not know about. Ask if the food contains your trigger food before you handle or eat it. Follow up with your healthcare provider as directed: Write down your questions so you remember to ask them during your visits. When you have an allergic reaction, write down everything you were exposed to in the 2 hours before the reaction. Take that information to your next visit. ?? 2017 Group [employer] Information is for End User's use only and may not be sold, redistributed or otherwise used for commercial purposes. All illustrations and images included in CareNotes?? are the copyrighted property of [employer] or [employer]. The above information is an public aid eligibility assistant only. It is not intended as medical advice for individual conditions or treatments. Talk to your doctor, nurse or pharmacist before following any medical regimen to see if it is safe and effective for you. documented in this encounter Ordered Prescriptions Prescription Sig Dispense Quantity Refills Last Filled Start Date End Date amoxicillin (AMOXIL) 875 mg tabletIndications: Acute effusion of left ear Take 1 tablet (875 mg total) by mouth 2 (two) times a day for 10 days 20 tablet 06/29/2020 07/09/2020 documented in this encounter Progress Notes * Pebbles Rosales NP - 06/29/2020 10:00 AM CDT Images from the original note were not included. Subjective/Objective Patient: Shen Thomas is a 29 y.o. male followed by Tad Horowitz MD COVID-19 ROS: Patient presents to clinic for assessment of Chief Complaint Patient presents with ??? COVID-19 EVALUATION sx onset 06/25/20; c/o sinus pressure, above eyes, left ear pressure ??? . ??? Reports SINUS PRESSURE and EAR PAIN ??? Reports this has been going on for 3 days. ??? Sick or suspected COVID-19 contacts: NO ??? Patient has following risks for COVID-19: NONE ??? Vaccinated: NO -- Date: N/A Social History Tobacco Use Smoking Status Former Smoker ??? Types: Cigarettes Smokeless Tobacco Never Used Vitals: 06/29/20 1022 BP: 122/68 BP Location: Right arm Patient Position: Sitting Pulse: 92 Resp: 18 Temp: 37.3 ??C (99.1 ??F) TempSrc: Oral SpO2: 98% Weight: 83.2 kg (183 lb 6.4 oz) Height: 177.8 cm (5' 10 ) Chief Complaint Patient presents with ??? COVID-19 EVALUATION sx onset 06/25/20; c/o sinus pressure, above eyes, left ear pressure Patient presents to clinic with complaints of sinus pressure/pain and left ear fullness x3 days. Patient denies OTC symptom management attempts. Denies fever, chills, N/V/D, SOB, chest discomfort. Denies known COVID exposure recent ill contacts. Patient states he has been working from home and staring at a computer for most hours of the day causing headaches and fatigue. Endorses use of bluelightglasses. Denies overuse of Tylenol/NSAIDs. Review of Systems Constitutional: Negative for chills and fever. HENT: Positive for ear pain (c/o left ear pain x 3 days, denies drainage), sinus pressure and sinuspain. Negative for congestion, rhinorrhea, sneezing and sore throat. Eyes: Negative. Respiratory: Negative for cough, chest tightness, shortness of breath and wheezing. Cardiovascular: Negative for chest pain. Gastrointestinal: Negative for constipation, diarrhea, nausea and vomiting. Endocrine: Negative. Genitourinary: Negative. Musculoskeletal: Negative for arthralgias and myalgias. Skin: Negative. Allergic/Immunologic: Negative for environmental allergies. Neurological: Positive for headaches (c/o headaches likely from computer use ). Hematological: Negative for adenopathy. Psychiatric/Behavioral: Negative. Physical Exam Vitals and nursing note reviewed. Constitutional: Appearance: Normal appearance. HENT: Head: Normocephalic and atraumatic. Right Ear: Hearing, tympanic membrane, ear canal and external ear normal. Left Ear: Hearing, ear canal and external ear normal. A middle ear effusion is present. Tympanic membrane is bulging. Nose: Nose normal. Mouth/Throat: Mouth: Mucous membranes are moist. Pharynx: No pharyngeal swelling or posterior oropharyngeal erythema. Cardiovascular: Rate and Rhythm: Normal rate and regular rhythm. Heart sounds: Normal heart sounds, S1 normal and S2 normal. Pulmonary: Effort: Pulmonary effort is normal. Breath sounds: Normal breath sounds and air entry. No decreased breath sounds, wheezing, rhonchi orrales. Musculoskeletal: General: Normal range of motion. Cervical back: Neck supple. Skin: General: Skin is warm and dry. Neurological: General: No focal deficit present. Mental Status: He is alert and oriented to person, place, and time. Psychiatric: Mood and Affect: Mood normal. Behavior: Behavior normal. Behavior is cooperative. Assessment/Plan Diagnoses and all orders for this visit: Acute effusion of left ear (Primary) - COVID-19 POC - amoxicillin (AMOXIL) 875 mg tablet; Take 1 tablet (875 mg total) by mouth 2 (two) times a day for10 days Environmental and seasonal allergies Orders Placed This Encounter Procedures ??? COVID-19 POC Order Specific Question: Is the Patient experiencing symptoms consistent with COVID? Answer: Yes Order Specific Question: Date of Symptom Onset Answer: 06/25/2020 Order Specific Question: Is the patient hospitalized? [...] Question: Is the patient ? Answer: No Results for orders placed or performed in visit on 06/29/20 COVID-19 POC Result Value Ref Range COVID-19 Ag POC (CareStart) Presumptive Negative Presumptive Negative, Invalid Patient Instructions: ??? Take amoxicillin as prescribed for middle ear effusion ??? Gkoh-zrf-khiomkr antihistamine such as Benadryl, Claritin or Zyrtec will aid in alleviation of symptoms such as itchy, watery eyes and nasal drainage. Benadryl can be sedating. ??? Nasal spray, such as Flonase may also aid in nasal congestion. This may also be purchased over the counter. ??? Allergies can flare with the change of weather/ season or around harvest time. The [facility] area is known to have severe allergens. ??? If your symptoms worsen or continue, you will need to follow up with your PCP. Patient Education Ear Infection MANAGER AGRICULTURE: An ear infection is also called otitis media. An ear infection may be caused by blocked or swollen eustachian tubes. Eustachian tubes connect the middle ear to the back of the nose and throat. They drain fluid from the middle ear. With an ear infection, fluid builds up and is infected by germs. Thegerms grow easily in fluid trapped behind the eardrum. Common symptoms include the following: ?? Ear pain ?? Fever or a headache ?? Trouble hearing ?? Ringing or buzzing in your ear ?? Plugged ear or an ear that feels full ?? Dizziness ?? Nausea or vomiting Call 911 or have someone call 911 for the following: ?? You have a seizure. Seek immediate care for the following symptoms: ?? You have a fever and a stiff neck. Contact your healthcare provider if: ?? Your ear pain gets worse or does not go away, even after treatment. ?? The outside of your ear is red or swollen. ?? You are vomiting or have diarrhea. ?? You have fluid coming from your ear. ?? You have questions or concerns about your condition or care. Medicines: You may need any of the following: ?? Acetaminophen decreases [...] the medicine label and follow directions. ?? Ear drops help treat your ear pain. ?? Antibiotics help treat a bacterial infection that caused your ear infection. ?? Take your medicine as directed. Contact your healthcare provider if you think your medicine is not helping or if you have side effects. Tell him or her if you are allergic to any medicine. Keep a list of the medicines, vitamins, and herbs you take. Include the amounts, and when and why you take them. Bring the list or the pill bottles to follow-up visits. Carry your medicine list with you in case of an emergency. Manage your symptoms: ?? Apply heat on your ear for 15 to 20 minutes, 3 to 4 times a day or as directed. Heat helps decrease pain. ?? Apply ice on your ear for 15 to 20 minutes, 3 to 4 times a day for 2 days or as directed. Use anice pack, or put crushed ice in a plastic bag. Cover it with a towel before you apply it to your ear. Ice decreases swelling and pain. Prevent an ear infection: ?? Wash your hands often. Use soap and water. Wash your hands after you use the bathroom, change a child's diapers, or sneeze. Wash your hands before you prepare or eat food. ?? Stay away from people who are ill. Some germs are easily and quickly spread through contact. Follow up with your healthcare provider as directed: Write down your questions so you remember to ask them during your visits. ?? 2017 [employer] Information is for End User's use only and may not be sold, redistributed or otherwise used for commercial purposes. All illustrations and images included in CareNotes?? are the copyrighted property of [employer] or [employer]. The above information is an public aid eligibility assistant only. It is not intended as medical advice for individual conditions or treatments. Talk to your doctor, nurse or pharmacist before following any medical regimen to see if it is safe and effective for you. Patient Education Allergies MANAGER AGRICULTURE: Allergies are an immune system reaction to a substance called an allergen. Your immune system sees the allergen as harmful and attacks it. Common signs and symptoms include the following: ?? Mild symptoms include sneezing and a runny, itchy, or stuffy nose. You may also have swollen, watery, or itchy eyes, or skin itching. You may have swelling or pain where an insect bit or stung you. ?? Anaphylaxis symptoms include trouble breathing or swallowing, a rash or hives, or severe swelling. You may also have a cough, wheezing, or feel lightheaded or dizzy. Anaphylaxis is a sudden, life-threatening reaction that needs immediate treatment. Call 911 for signs or symptoms of anaphylaxis, such as trouble breathing, swelling in your mouth orthroat, or wheezing. You may also have itching, a rash, hives, or feel like you are going to faint. Seek care immediately if: ?? You have tingling in your hands or feet. ?? Your skin is red or flushed. Contact your healthcare provider if: ?? You have questions or concerns about your condition or care. Steps to take for signs or symptoms of anaphylaxis: ?? Immediately give 1 shot of epinephrine only into the outer thigh muscle. ?? Leave the shot in place as directed. Your healthcare provider may recommend you leave it in place for up to 10 seconds before you remove it. This helps make sure all of the epinephrine is delivered. ?? Call 911 and go to the emergency department, even if the shot improved symptoms. Do not drive yourself. Bring the used epinephrine shot with you. Treatment for allergies may include any of the following: ?? Antihistamines help decrease itching, sneezing, and swelling. You may take them as a pill or usedrops in your nose or eyes. ?? Decongestants help your nose feel less stuffy. ?? Steroids decrease swelling and redness. ?? Topical treatments help decrease itching or swelling. You also may be given nasal sprays or eyedrops. ?? Epinephrine is medicine used to treat severe allergic reactions such as anaphylaxis. ?? Desensitization gets your body used to allergens you cannot avoid. Your healthcare provider willgive you a shot that contains a small amount of an allergen. He or she will treat any allergic reaction you have. Your provider will give you more of the allergen a little at a time until your body gets used to it. Your reaction to the allergen may be less serious after this treatment. Your healthcare provider will tell you how long to get the shots. Safety precautions to take if you are at risk for anaphylaxis: ?? Keep 2 shots of epinephrine with you at all times. You may need a second shot, because epinephrine only works for about 20 minutes and symptoms may return. Your healthcare provider can show you and family members how to give the shot. Check the expiration date every month and replace it before it expires. ?? Create an action plan. Your healthcare provider can help you create a written plan that explainsthe allergy and an emergency plan to treat a reaction. The plan explains when to give a second epinephrine shot if symptoms return or do not improve after the first. Give copies of the action plan and emergency instructions to family members and work staff. Show them how to give a shot of epinephrine. ?? Be careful when you exercise. If you have had exercise-induced anaphylaxis, do not exercise right after you eat. Stop exercising right away if you start to develop any signs or symptoms of anaphylaxis. You may first feel tired, warm, or have itchy skin. Hives, swelling, and severe breathing problems may develop if you continue to exercise. ?? Carry medical alert identification. Wear medical alert jewelry or carry a card that explains theallergy. Ask your healthcare provider where to get these items. ?? Inform all healthcare providers of the allergy. This includes dentists, nurses, doctors, and surgeons. Manage allergies: ?? Use nasal rinses as directed. Rinse with a saline solution daily. This will help clear allergensout of your nose. Use distilled water if possible. You can also boil tap water and let it cool before you use it. Do not use tap water that has not been boiled. ?? Do not smoke. Allergy symptoms may decrease if you are not around smoke. Nicotine and other chemicals in cigarettes and cigars can cause lung damage. Ask your healthcare provider for information if you currently smoke and need help to quit. E-cigarettes or smokeless tobacco still contain nicotine. Talk to your healthcare provider before you use these products. Prevent an allergic reaction: ?? Do not go outside when pollen counts are high if you have seasonal allergies. Your symptoms may be better if you go outside only in the morning or evening. Use your air conditioner, and change airfilters often. ?? Avoid dust, fur, and mold. Dust and vacuum your home often. You may want to wear a mask when youvacuum. Keep pets in certain rooms, and bathe them often. Use a dehumidifier (machine that decreases moisture) to help prevent mold. ?? Do not use products that contain latex if you have a latex allergy. Use nonlatex gloves if you work in healthcare or in food preparation. Always tell healthcare providers about a latex allergy. ?? Avoid areas that attract insects if you have an insect bite or sting allergy. Areas include trash cans, gardens, and picnics. Do not wear bright clothing or strong scents when you will be outside. ?? Prevent an allergic reaction caused by food. You may have a reaction if your food is not prepared safely. For example, you could be served food that touched your trigger food during preparation. This is called cross-contamination. Kitchen tools can also cause cross-contamination. You may also eat baked foods that contain a trigger food you do not know about. Ask if the food contains your trigger food before you handle or eat it. Follow up with your healthcare provider as directed: Write down your questions so you remember to ask them during your visits. When you have an allergic reaction, write down everything you were exposed to in the 2 hours before the reaction. Take that information to your next visit. ?? 2017 [employer] Information is for End User's use only and may not be sold, redistributed or otherwise used for commercial purposes. All illustrations and images included in CareNotes?? are the copyrighted property of [employer], [employer]. or [employer]. The above information is an public aid eligibility assistant only. It is not intended as medical [...] was wearing the following PPE: mask. ??? MA wearing the following PPE: mask, gown, gloves, face shield. ??? Provider wearing the following PPE: mask, gown, gloves, face shield. Pebbles Rosales NP documented in this encounter Plan of Treatment Not on file documented as of this encounter Procedures Procedure Name Priority Date/Time Associated Diagnosis Comments COVID-19 POC Routine 06/29/2020 10:47 AM CDT Acute effusion of left ear documented in this encounter Results * COVID-19 POC (06/29/2020 10:47 AM CDT) COVID-19 Ag POC (BD Veritor) Presumptive Negative Presumptive Negative, Invalid CERNER CH Nasal 06/29/2020 10:4 7 AM CDT us Karra [place] Rosales LENS ENGRAVER POINT OF CARE TEST ORDERABL ES Edited Result - Final MIGUEL [id number] [place] [address] documented in this encounter Visit Diagnoses Diagnosis Acute effusion of left ear- Primary Environmental and seasonal allergies documented in this encounter Additional Health Concerns Infection Onset Date Last Indicated Resolved Time COVID: Suspected 06/29/2020 06/29/2020 06/29/2020 10:48 AM CDT documented as of this encounter Care Teams Chief Operating Officer Relationship Specialty Start Date End Date Tad Horowitz MD [address] [place] [address] PCP - General Family Medicine 06/29/20 11/30/20 documented as of this encounter
--- OUTSIDE RECORDS SUMMARY | 2024-02-29 13:44 | XMS_ITS | Encounter Summary ---
Author Organization [facility] Address [address] [place] [address] Care Team Providers Care Sewer Separation Designer Name Role Phone Unavailable Primary Care Provider Unavailabl e Encounter Details Date Type Department Care Team (Late st Contact Info) Description 11/30/2016 Lab Services [facility] CONVERSION Rebekah Wade MD [address] [place] [address] Social History Tobacco Use Types Packs/Day Years Used Date Smoking Tobacco: Never Assessed Sex and Gender Information Value Date Recorded Sex Assigned at Not on file Gender Identity Not on file Sexual Orientation Not on file documented as of this encounter Plan of Treatment Not on file documented as of this encounter Procedures Procedure Name Priority Date/Time Associated Diagnosis Comments COMPREHENSIVE METABOLIC PANEL WITH CBCA, LIPID PANEL AND TSH Routine 11/30/2016 10:42 AM CDT documented in this encounter Results * (ABNORMAL) Chem Cmp, CBC, Lipids, TSH (11/30/2016 10:42 AM CDT) WHITE BLOOD COUNT 5.4 4.2 - 11.0 K/mcL [facility] RED CELL COUNT 5.48 4.50 - 5.90 mil/mcL [facility] HEMOGLOBIN 16.4 13.0 - 17.0 g/dl [facility] HEMATOCRIT 47.9 39.0 - 51.0 % [facility] MEAN CORPUSCULAR VOLUME 87.4 78.0 - 100.0 fL [facility] MEAN CORPUSCULAR HEMOGLOBIN 29.9 26.0 - 34.0 pg [facility] MEAN CORPUSCULAR HGB CONC 34.2 32.0 - 36.5 g/dl [facility] RDW-CV 12.5 11.0 - 15.0 % [facility] PLATELET COUNT 140 140 - 450 K/mcL [facility] Neutrophil 53 % [facility] LYMPH 33 % [facility] MONO 11 % [facility] EOSIN 3 % [facility] BASO 0 % [facility] Absolute Neutrophil 2.8 1.8 - 7.7 K/mcL [facility] Absolute Lymph 1.8 1.0 - 4.8 K/mcL [facility] Absolute [place] 0.6 0.3 - 0.9 K/mcL [facility] Absolute Eos 0.2 0.1 - 0.5 K/mcL [facility] Absolute Baso 0 0.0 - 0.3 K/mcL [facility] Sodium 142 135 - 145 mmol/L [facility] Potassium 4.3 3.4 - 5.1 mmol/L [facility] Chloride 104 98 - 107 mmol/L [facility] Carbon Dioxide 30 21 - 32 mmol/L [facility] Anion Gap 12 10 - 20 mmol/L [facility] Glucose 89 65 - 99 mg/dl [facility] BUN 15 6 - 20 mg/dl [facility] Creatinine 0.98 0.67 - 1.17 mg/dl [facility] GFR Estimate, >90 [facility] Comment:eGFR results = or >9 0 mL/min/1.73m2 = Normal kidney function. GFR Estimate, Non >90 [facility] Comment:eGFR results = or >9 0 mL/min/1.73m2 = Normal kidney function. BUN/Creatinine Ratio 15 7 - 25 [facility] TOTAL BILIRUBIN 1.2(H) 0.2 - 1.0 mg/dl [facility] AST/SGOT 26 <38 Units/L [facility] ALK PHOSPHATASE 70 45 - 117 Units/L [facility] Albumin 4.5 3.6 - 5.1 g/dl [facility] TOTAL PROTEIN 7.7 6.4 - 8.2 g/dl [facility] GLOBULIN 3.2 2.0 - 4.0 g/dl [facility] A/G Ratio, Serum 1.4 1.0 - 2.4 [facility] CALCIUM 9.4 8.4 - 10.2 mg/dl [facility] ALT/SGPT 58 <79 Units/L [facility] FASTING STATUS UNK hrs [facility] CHOLESTEROL 130 <200 mg/dl [facility] Comment: Desirable ?<200 Borderline High ?200 to 239 High ? >=240 HDL 42 >39 mg/dl [facility] Comment: Low ?<40 Borderline Low 40 to 49 Near Optimal ?? 50 to 59 Optimal ?>=60 TRIGLYCERIDE 146 <150 mg/dl [facility] Comment: Normal ? <150 Borderline High ?150 to 199 High ? 200 to 499 Very High ?>=500 CALCULATED LDL 59 <130 mg/dl [facility] Comment: OPTIMAL ? <100 NEAR OPTIMAL ?100-129 BORDERLINE HIGH ? 130-159 HIGH ?160-189 VERY HIGH ? >=190 CALCULATED NON HDL 88 mg/dl [facility] Comment: Therapeutic Target: CHD and risk equivalents <130 Multiple risk factors ?<160 0 to 1 risk factors ?<190 CHOL/HDL 3.1 <4.5 [facility] TSH 0.982 0.350 - 5.000 mcUnits/ mL [facility] DIFF TYPE AUTOMATED DIFFERENTIAL [facility] Fasting Status UNK hrs [facility] 11/30/2016 10:4 2 AM CDT 12/01/2016 2:48 AM CDT Narrative [facility] - 12/06/2016 5:36 PM CDT Performed At: [facility] Result Annotated 12/06/2016 17:36 by REBEKAH WADE: ??Overall normal labs except your bilirubin is slightly borderline high please follow-up with your GI doctor that you see as needed Rebekah Wade MD LAB BLOOD ORDERABLES Performing Organization Address City/State/[facility] Co de Phone Number [facility] [place] [address] [place] [address] documented in this encounter Visit Diagnoses Not on filedocumented in this encounter
--- OUTSIDE RECORDS SUMMARY | 2024-02-29 13:44 | XMS_ITS | Encounter Summary ---
Author Organization [facility] Address [address] [place] [address] Care Team Providers Care Assistant Customer Service Manager Name Role Phone Unavailable Primary Care Provider Unavailabl e Encounter Details Date Type Department Care Team (Late st Contact Info) Description 10/08/2016 9:23 AM CDT Hospital [facility] Jaquan Robles MD [address] [place] [address] Provider, Alvina Paz Historical Conversion NO KNOWN ADDRESS ON FILE Discharge Disposition: Home or Self Care Social History Tobacco Use Types Packs/Day Years Used Date Smoking Tobacco: Never Assessed Inadequate Housing Answer Date Recorded Social Determinants: Housing (Overall Score Help er) 0 10/14/2018 Sex and Gender Information Value Date Recorded Sex Assigned at Not on file Gender Identity Not on file Sexual Orientation Not on file documented as of this encounter Discharge Disposition Disposition Code Departure Means Destination Home or Self Care documented in this encounter Plan of Treatment Not on file documented as of this encounter Procedures Procedure Name Priority Date/Time Associated Diagnosis Comments STREP GROUP A CULTURE Routine 10/08/2016 10:11 AM CDT STREP GROUP A SCREEN RAPID WITH REFLEX TO CULTURE Routine 10/08/2016 10:11 AM CDT documented in this encounter Results * STREP GROUP A SCREEN RAPID WITH REFLEX TO CULTURE (10/08/2016 10:11 AM CDT) 10/08/2016 10:1 1 AM CDT 10/08/2016 10:11 AM CDT Narrative HISTORICAL DATA MIGRATION - 10/08/2016 10:11 AM CDT ? SPENCER KUMAR P ? : ??90 ?MICROBIOLOGY ? SOURCE: THROAT ? ACCESSION: ? Verified:10/08/2016 10:11 ? Streptococcus Group A Screen Rapid: NEGATIVE Location History: [facility] ?, YUMIKO CHEN, ? Jaquan Cotto MD LAB BLOOD ORDERABLES HISTORICAL DATA MIGRATION * Strep Group A Culture (10/08/2016 10:11 AM CDT) 10/08/2016 10:1 1 AM CDT 10/08/2016 10:11 AM CDT Narrative HISTORICAL DATA MIGRATION - 10/08/2016 10:11 AM CDT ? BONE, SPENCER P ? : ??90 ?MICROBIOLOGY ? SOURCE: ? Verified:10/08/2016 10:11 ? Collection Date/Time: 10-08-2016 10:11 SPECIMEN DESCRIPTION: THROAT ? CULTURE: NO BETA HEMOLYTIC STREPTOCOCCI ISOLATED ? REPORT STATUS: FINAL 10/10/2016 ? Jaquan Cotto MD MICROBIOLOGY - GENER AL ORDERABLES HISTORICAL DATA MIGRATION documented in this encounter Visit Diagnoses Not on filedocumented in this encounter
--- OUTSIDE RECORDS SUMMARY | 2024-02-29 13:44 | XMS_ITS | Referral Summary ---
Author Organization [facility] Address [address] [place] [address] Care Team Providers Care Supervisor Lime Name Role Phone Rebekah Wade MD Primary Care Provider [phone] Social History Tobacco Use Types Packs/Day Years Used Date Smoking Tobacco: Never Assessed Inadequate Housing Answer Date Recorded Social Determinants: Housing (Overall Score Help er) 0 10/14/2018 Sex and Gender Information Value Date Recorded Sex Assigned at Not on file Gender Identity Not on file Sexual Orientation Not on file Last Filed Vital Signs Vital Sign Reading Time Taken Comments Blood Pressure 100/62 11/30/2016 9:31 AM CDT Pulse 71 11/30/2016 9:31 AM CDT Temperature 36.6 ??C (97.8 ??F) 11/30/2016 9:31 AM CD T Respiratory Rate 16 11/30/2016 9:31 AM CDT Oxygen Saturation 98% 11/30/2016 9:31 AM CDT Inhaled Oxygen Concentration - - Weight 73 kg (161 lb) 11/30/2016 9:31 AM CDT Height 175.3 cm (5' 9.02 ) 11/30/2016 9:31 AM CD T Body Mass Index 23.76 11/30/2016 9:31 AM CDT Plan of Treatment Not on file Care Teams Supervisor Lime Relationship Specialty Start Date End Date Rebekah Wade MD PCP - General 01/25/18
--- OUTSIDE RECORDS SUMMARY | 2024-02-29 13:44 | XMS_ITS | Encounter Summary ---
Author Organization [facility] Address [address] [place] [address] Care Team Providers Care Pilot Steam Yacht Name Role Phone Unavailable Primary Care Provider Unavailabl e Encounter Details Date Type Department Care Team (Late st Contact Info) Description 10/10/2016 9:18 AM CDT Hospital [facility] Jaquan Cotto MD [address] [place] [address] Provider, Alvina Paz Historical Conversion NO KNOWN [...]
--- OUTSIDE RECORDS SUMMARY | 2024-02-29 13:44 | XMS_ITS | Clinical Summary ---
Author Organization [facility] Address [address] [place] [address] Care Team Providers Care Supervisor Paper Testing Name Role Phone Rebekah Wade MD Primary Care Provider [phone] Social History Tobacco Use Types Packs/Day Years [...] 11/30/2016 9:31 AM CDT Plan of Treatment Health Maintenance Due Date Last Done Comments Depression Screening 2002 Varicella Vaccine (1 of 2 - 13+ 2-dose series) 09/07/2003 DTaP/Tdap/Td Vaccine (1 - Tdap) 2009 Hepatitis B Vaccine (1 of 3 - 19+ 3-dose series) 2009 COVID-19 Vaccine ( - 2023-2 5 season) 2023 Influenza Vaccine (#1) 2023 HPV Vaccine Aged Out No longer eligi ble based on patient's age to complete this topic Meningococcal Vaccine Aged Out No niraj linda eligible based on patient's age to complete this topic Pneumococcal Vaccine 0-64 Aged Out No longer eligible based on patient's age to complete this topic Care Teams Supervisor Paper Testing Relationship Specialty Start Date End Date Rebekah Wade MD PCP - General 01/25/18
== END 2024-02-22 11:30 | disposition home or self-care (01) ==
PROVIDERS: Emergency Provider Registered Nurse; PCP Family Medicine
DX: J06.9 Acute upper respiratory infection, unspecified (principal); Z87.891 Personal history of nicotine dependence
CPT/HCPCS: 99213; G0463

== ENCOUNTER 2024-04-13 09:08 | Emergency (ER) | payer OTHER, SELFPAY ==
[2024-04-13 09:25] VITALS: BP 136/72; PULSE 92; RESP 20; TEMP 36.6; O2SAT 99
--- OUTSIDE RECORDS SUMMARY | 2024-04-13 09:31 | XMS_ITS | Clinical Summary ---
Author Organization [facility] [employer] Address [address] [place] [address] Care Team Providers Care Probe Operator Name Role Phone Unavailable Primary Care Provider Unavailabl e Source Comments [facility],non-owned Affiliates and Associated Physician Practices is amultiple site organization consisting of ambulatory clinics and hospital sitesin [place], [place], [place] and [place]. This disclosure is being madepursuant to the Care Everywhere program and may not contain all information available regarding this patient. Last updated 17.[facility] [employer] Allergies Active Allergy Reactions Criticality Noted Date [...] Comments Blood Pressure 122/70 04/09/2019 11:24 AM LOAN ORIGINATOR Pulse 99 04/09/2019 11:24 AM LOAN ORIGINATOR Temperature 37.7 C (99.8 F) 04/09/2019 11:24 AM LOAN ORIGINATOR Respiratory Rate 16 04/09/2019 11:24 AM LOAN ORIGINATOR Oxygen Saturation 98% 04/09/2019 11:24 AM LOAN ORIGINATOR Inhaled Oxygen Concentration - - Weight 77.1 kg (170 lb) 04/09/2019 11:24 AM LOAN ORIGINATOR Height 177.8 cm (5' 10 ) 04/09/2019 11:24 AM LOAN ORIGINATOR Body Mass Index 24.39 04/09/2019 11:24 AM LOAN ORIGINATOR Plan of Treatment Health Maintenance Due Date Last Done Comments HIV SCREENING 2005 HEPATITIS C SCREENING 09/01/2008 DTAP/TDAP/TD VACCINES (1 - Tdap) 2009 HEPATITIS B VACCINE (1 of 3 - 19+ 3-dose series) 2009 COVID-19 VACCINE ( - 2023-2 5 season) 2023 INFLUENZA VACCINE (#1) 2023 DEPRESSION SCREENING 03/04/2024 ZOSTER VACCINE (1 of 2) 2040 HIB VACCINE Aged Out No longer eligi ble based on patient's age to complete this topic HPV VACCINE Aged Out No longer eligi ble based on patient's age to complete this topic MENINGOCOCCAL (Group B) VACCINE Aged Out No longer eligible based on patient's age to complete this topic MENINGOCOCCAL VACCINE Aged Out No niraj linda eligible based on patient's age to complete this topic PNEUMOCOCCAL VACCINE Aged Out No long er eligible based on patient's age to complete this topic
--- OUTSIDE RECORDS SUMMARY | 2024-04-13 09:31 | XMS_ITS | Referral Summary ---
Author Organization [facility] [employer] Address [address] [place] [address] Care Team Providers Care Tool Or Die Drawing Checker Name Role Phone Unavailable Primary Care Provider Unavailabl e Source Comments [facility],non-owned Affiliates and Associated Physician Practices is amultiple site organization consisting of ambulatory clinics and hospital sitesin [place], [place], [place] and [place]. This disclosure is being madepursuant to the Care Everywhere program and may not contain all information available regarding this patient. Last updated 17.[facility] [employer] Allergies Active Allergy Reactions Criticality Noted Date [...] Comments Blood Pressure 122/70 04/09/2019 11:24 AM CLOSING SUPERVISOR Pulse 99 04/09/2019 11:24 AM CLOSING SUPERVISOR Temperature 37.7 C (99.8 F) 04/09/2019 11:24 AM CLOSING SUPERVISOR Respiratory Rate 16 04/09/2019 11:24 AM CLOSING SUPERVISOR Oxygen Saturation 98% 04/09/2019 11:24 AM CLOSING SUPERVISOR Inhaled Oxygen Concentration - - Weight 77.1 kg (170 lb) 04/09/2019 11:24 AM CLOSING SUPERVISOR Height 177.8 cm (5' 10 ) 04/09/2019 11:24 AM CLOSING SUPERVISOR Body Mass Index 24.39 04/09/2019 11:24 AM CLOSING SUPERVISOR Plan of Treatment Not on file
--- OUTSIDE RECORDS SUMMARY | 2024-04-13 09:31 | XMS_ITS | Clinical Summary ---
Author Organization [facility] Address [address] [place] [address] Care Team Providers Care Front Line Leader Name Role Phone Rebekah Wade MD Primary Care Provider [phone] Social History Tobacco Use Types Packs/Day Years [...] 71 11/30/2016 9:31 AM CDT Temperature 36.6 C (97.8 F) 11/30/2016 9:31 AM CDT Respiratory Rate 16 11/30/2016 9:31 AM CDT [...] on patient's age to complete this topic Hepatitis A Vaccine Aged Out No longe r eligible based on patient's age to complete this topic Meningococcal Serogroup B Vaccine Aged Out No longer eligible based on patient's age to complete this topic Meningococcal Vaccine Aged Out No niraj linda eligible based on patient's age to complete this topic Pneumococcal Vaccine 0-49 Aged Out No longer eligible based on patient's age to complete this topic Care Teams Front Line Leader Relationship Specialty Start Date End Date Rebekah Wade MD PCP - General 01/25/18
--- OUTSIDE RECORDS SUMMARY | 2024-04-13 09:31 | XMS_ITS | Patient Health Summary ---
Author Organization [facility] Address [address] [place] [address] Care Team Providers Care Order Selector Name Role Phone Unavailable Primary Care Provider Unavailabl e Note from [facility],non-owned Affiliates and Associated Physician Practices is amultiple site organization consisting of ambulatory clinics and hospital sitesin [place], [place], [place] and [place]. This disclosure is being madepursuant to the Care Everywhere program and may not contain all information available regarding this patient. Last updated 17.[facility] Allergies * Erythromycin(Other) * Cephalexin(Other) Medications * [...] Comments Blood Pressure 122/70 04/09/2019 11:24 AM BIOTECH PRODUCTION SPECIALIST Pulse 99 04/09/2019 11:24 AM BIOTECH PRODUCTION SPECIALIST Temperature 37.7 C (99.8 F) 04/09/2019 11:24 AM BIOTECH PRODUCTION SPECIALIST Respiratory Rate 16 04/09/2019 11:24 AM BIOTECH PRODUCTION SPECIALIST Oxygen Saturation 98% 04/09/2019 11:24 AM BIOTECH PRODUCTION SPECIALIST Inhaled Oxygen Concentration - - Weight 77.1 kg (170 lb) 04/09/2019 11:24 AM BIOTECH PRODUCTION SPECIALIST Height 177.8 cm (5' 10 ) 04/09/2019 11:24 AM BIOTECH PRODUCTION SPECIALIST Body Mass Index 24.39 04/09/2019 11:24 AM BIOTECH PRODUCTION SPECIALIST Procedures * INFLUENZA A+B - POINT OF CARE (AMB)(Performed 04/09/2019) Performed for Influenza B Results * (ABNORMAL) INFLUENZA A+B - POINT OF CARE (AMB) (04/09/2019) Influenza A Antigen Rapid Negative Negative Influenza B Antigen Rapid Positive(A) Negative Influenza Internal Control positive NEGATIVE - POSITIVE Influenza Lot Number [id number] Influenza Expiration Date 01/14/2021 Other NASOPHARYNGEAL SWAB / Unknown 04/09/2019 Vivi Foster APRN-PHOTOGRAPHER MODEL LAB - POINT OF CARE ORDERABLES
--- OUTSIDE RECORDS SUMMARY | 2024-04-13 09:31 | XMS_ITS | Clinical Summary ---
Author Organization [facility] Address [address] [place] [id number] Phone Care Team Providers Care Student Life Coordinator Name Role Phone Tad Horowitz MD Unavailable [phone] Tad Horowitz MD Primary Care Provider [phone] Allergies Active Allergy Reactions Criticality Noted Date [...] file Legal Sex Male 10:04 PM SENIOR SECURITY ARCHITECT Gender Identity Male 12/01/2020 1:31 PM CDT Sexual Orientation Straight 12/01/2020 1: 31 PM CDT Obstetrics History Last Filed Vital Signs Vital Sign Reading Time Taken Comments Blood Pressure 118/78 08/29/2023 11:21 AM CDT Pulse 86 08/29/2023 11:21 AM CDT Temperature 36.6 C (97.9 F) 08/29/2023 11:21 AM CDT Respiratory Rate 16 08/29/2023 11:21 AM CDT [...] Additional history exists Influenza Vaccine (#1) 2023 Hepatitis B Screening Completed 05/22/2000 , 12/20/1999, 11/22/1999 HPV Vaccines Aged Out No longer eligi ble based on patient's age to complete this topic Pneumococcal vaccine <65 Aged Out No longer eligible based on patient's age to complete this topic Insurance [facility] [employer] CHOICE [facility] CHO[facility] PLUS Care Teams Student Life Coordinator Relationship Specialty Start Date End Date Tad Horowitz MD [address] DEPT FAMILY MEDICINE [place], [place] [address] PCP - General 05/28/21 Tad Horowitz MD [address] DEPT FAMILY MEDICINE [place], [place] [id number] Family Medicine 12/01/20
--- OUTSIDE RECORDS SUMMARY | 2024-04-13 09:31 | XMS_ITS | Referral Summary ---
Author Organization [facility] Address [address] [place] [id number] Phone Care Team Providers Care Real Estate Assistant Name Role Phone Tad Horowitz MD Unavailable [phone] Tad Horowitz MD Primary Care Provider [phone] Allergies Active Allergy Reactions Criticality Noted Date [...] on file Legal Sex Male 10:04 PM MANAGER CARDIOLOGY Gender Identity Male 12/01/2020 1:31 PM CDT [...] Plan of Treatment Not on file Insurance [facility] CHOICE PLUS [facility] CHOICE [facility] CHO[facility] PLUS Care Teams Real Estate Assistant Relationship Specialty Start Date End Date Tad Horowitz MD [address] [place] [address] PCP - General 05/28/21 Tad Horowitz MD [address] [place] [address] Family Medicine 12/01/20
--- OUTSIDE RECORDS SUMMARY | 2024-04-13 09:31 | XMS_ITS | Referral Summary ---
Author Organization [facility] Address [address] [place] [address] Care Team Providers Care Animal Shelter Clerk Name Role Phone Rebekah Wade MD Primary Care Provider [phone] Social History Tobacco Use Types Packs/Day Years [...] of Treatment Not on file Care Teams Animal Shelter Clerk Relationship Specialty Start Date End Date Rebekah Wade MD PCP - General 01/25/18
--- OUTSIDE RECORDS SUMMARY | 2024-04-13 09:31 | XMS_ITS | Clinical Summary ---
Author Organization [facility] Address [address] [place] [address] Care Team Providers Care Personal Computer Network Analyst Name Role Phone Unavailable Primary Care Provider [...] patient's age to complete this topic Meningococcal B Vaccine Aged Out No l onger eligible based on patient's age to complete [...]
--- NOTE | 2024-04-13 09:38 | ED.URI ---
HPI - URI/Sore Throat General Stated Complaint: fever/tight chest Time Seen by Provider: 04/13/24 09:38 Source: patient Mode of arrival: ambulatory Limitations: no limitations History of Present Illness HPI Narrative: 33-year-old male presented for complaint of cough and bilateral lower rib pain for 3 days. Cough is nonproductive. Endorses exposure to influenza and pneumonia from the daughter. Denies shortness of breath, wheezing, lethargy, nausea vomiting diarrhea, fevers or chills. Taking DayQuil and NyQuil for symptoms. Related Data Home Medications ?Medication ?Instructions ?Recorded ?Confirmed ?Last Taken ?Type multivitamin (Multiple Vitamins 1 tablet PO DAILY 10/22/23 12/28/23 Unknown History tablet) Allergies Allergy/AdvReac Type Severity Reaction Status Date / Time diphtheria,pertussis Allergy Severe Difficulty Verified 02/22/24 11:17 (acellular),te (From Breathing Boostrix Tdap) cephalexin (From Keflex) Allergy Intermediate Hives Verified 02/22/24 11:17 erythromycin base Allergy Intermediate Hives Verified 02/22/24 11:17 Review of Systems Review of Systems: per HPI All systems reviewed & are unremarkable except as noted in HPI and below PMFSH Past Medical History Medical History History of sinus problem Ulcerative proctitis Acid reflux Ulcerative colitis Surgical History Surgical History H/O sinus surgery Family History Family History Father Alive and well Mother Alive and well Social History Social History Smoking status: Former smoker Tobacco type: cigarettes Second hand tobacco smoke exposure: No Smoking end date: 03/04/11 Alcohol intake: never Substance use: never Substance use type: does not use Living arrangements: with family Occupation/Education: occupation Gender identity (if verbalized by the patient): Male Spiritual care concerns: No Comments At time of signature, I have reviewed and agree with nursing past medical, surgical, social and family history unless otherwise noted. Please see nursing chart for further information. There is no relevant family history pertinent to the presenting complaint Exam Narrative: GENERAL: Well-appearing, in no acute distress. EYES: EOMI. No redness or drainage. Conjunctivae normal. ENT: Mucous membranes pink and moist. No rhinorrhea. TMs normal bilaterally. Throat normal. Uvula midline. NECK: Normal AROM. Supple. CHEST: No respiratory distress. Lungs clear to all martinez. HEART: Regular rate and rhythm. No murmur appreciated. SKIN: Warm, dry, no rash. Capillary refill normal. Normal skin turgor. NEURO: Alert and oriented x3. Gait steady. PSYCH: Normal affect. Course Course Emergency Course: Patient is aware of diagnosis, understands and agrees to treatment plan. Anticipatory guidance given. Patient agrees to follow-up as directed and is aware of reasons to seek care at the emergency department. Portions of this record may have been created with voice recognition software Level of Care: Express Care Visit Vital Signs Vital signs: Vital Signs Temperature 97.9 F 04/13/24 09:25 Pulse Rate 92 04/13/24 09:25 Respiratory Rate 20 04/13/24 09:25 Blood Pressure 136/72 04/13/24 09:25 Pulse Oximetry 99 04/13/24 09:25 Oxygen Delivery Room Air 04/13/24 09:25 Temperature 97.9 F 04/13/24 09:25 Pulse Rate 92 04/13/24 09:25 Respiratory Rate 20 04/13/24 09:25 Blood Pressure 136/72 04/13/24 09:25 Pulse Oximetry 99 04/13/24 09:25 Oxygen Delivery Room Air 04/13/24 09:25 MDM - URI/Sore Throat MDM Narrative Medical decision making narrative: Negative flu and COVID. Discussed physical exam findings. Advised supportive measures and signs/symptoms to go to the ER. Pt is appropriate for outpt treatment and f/u. Differential Diagnosis Differential diagnosis: Likely upper respiratory infection, sinusitis, viral infection, bronchitis and influenza Discharge Plan Discharge Clinical Impression: Viral infection Patient Disposition: Home, Self-Care Condition: Stable Instructions: Acute Bronchitis (ED) Additional Instructions: Flu and COVID negative. Acute bronchitis can be contagious because it is usually caused by infection with a virus or bacteria. It is usually for a few days but you can be contagious for up to one week. Avoid crowds until you do not have a fever and symptoms are improved Take medication as directed Recommend Flonase spray and Zyrtec (or Claritin/Licha) over the counter Cough syrup may cause drowsiness; avoid driving or take it at night time. Tylenol 1000mg every 8 hours as needed for pain Symptomatic treatment includes: rest, fluids, and increase humidity of the air at home. Follow up with your primary care provider as needed in 1 week Go to the ER for worsening symptoms or concerns Patient Language: Setswana Prescriptions: No Action azithromycin 250 mg tablet See Rx Instructions .ROUTE .COMPLEX Qty: 6 0RF Rx Instructions: For 250 mg dose pack: take 500 mg today (day 1), then 250 mg for 4 days (days 2-5) multivitamin [Multiple Vitamins] Tablet 1 tablet PO DAILY mesalamine 1,000 mg suppository See Rx Instructions .ROUTE .COMPLEX Qty: 90 1RF Dose Instruction: INSERT 1 SUPPOSITORY RECTALLY EVERY DAY AT BEDTIME FOR 3 WEEKS Rx Instructions: INSERT 1 SUPPOSITORY RECTALLY EVERY DAY AT BEDTIME FOR 3 WEEKS Follow-up/Referrals: Carlos Manuel,MD Tad [Primary Care Provider] - Time of Disposition: 09:44
[2024-04-13 09:57] LABS: EDCOVIDSCREEN Negative (Negative); EDINFLUASCREEN Negative (Negative); EDINFLUBSCREEN Negative (Negative)
== END 2024-04-13 09:50 | disposition home or self-care (01) ==
PROVIDERS: Emergency Provider Nurse Practitioner Family; PCP Family Medicine
DX: B34.9 Viral infection, unspecified (principal); Z20.822 Contact with and (suspected) exposure to COVID-19; Z87.891 Personal history of nicotine dependence; K21.9 Gastro-esophageal reflux disease without esophagitis
CPT/HCPCS: 87426; 87804; 99212; G0463

== ENCOUNTER 2024-05-25 08:00 | Emergency (ER) | payer OTHER, SELFPAY ==
[2024-05-25 08:04] VITALS: BP 140/84; PULSE 94; RESP 20; TEMP 36.5; O2SAT 98
--- NOTE | 2024-05-25 08:08 | ED_ITS ---
HPI - URI/Sore Throat General Chief Complaint: Upper Respiratory Infection Stated Complaint: poss sinus infection Time Seen by Provider: 05/25/24 08:08 Source: patient, RN notes reviewed and old records reviewed Mode of arrival: ambulatory Limitations: no limitations History of Present Illness HPI Narrative: 33 year old male who presents to express care with complaint of sinus congestion,sinus pressure, sinus drainage,ears popping, throat irritated since Saturday. Patient reports that he has not had any noted fevers, has had some noted chills. Patient reports that he has been taking DayQuil and NyQuil for his symptoms. Patient states that his is 39 weeks and either will be induced or have C section this week and needs to feel better. MD elicited complaint: cough and sore throat Onset (ago): day(s) (3) Consistency: constant Severity: moderate Pain scale (0-10): 4 Description of mucous: yellow Able to tolerate fluids by mouth: Yes Treatments prior to arrival: other (DayQuil and NyQuil) Related Data Home Medications ?Medication ?Instructions ?Recorded ?Confirmed ?Last Taken ?Type multivitamin (Multiple Vitamins 1 tablet PO DAILY 10/22/23 04/27/24 Unknown History tablet) Allergies Allergy/AdvReac Type Severity Reaction Status Date / Time diphtheria,pertussis Allergy Severe Difficulty Verified 05/25/24 08:09 (acellular),te (From Breathing Boostrix Tdap) cephalexin (From Keflex) Allergy Intermediate Hives Verified 05/25/24 08:09 erythromycin base Allergy Intermediate Hives Verified 05/25/24 08:09 Review of Systems Review of Systems: CONSTITUTIONAL: Reports malaise, some chills, sweats, no fever. EYES: Denies visual changes, redness, or discharge. ENT: Reports rhinorrhea, congestion,positive sinus pain, otalgia and sore throat. CARDIOVASCULAR: Denies chest pain, palpitations, or edema. RESPIRATORY: Reports no acute cough.? Denies dyspnea. GASTROINTESTINAL: Denies abdominal pain, nausea, vomiting, diarrhea SKIN: Denies rash or itching. MUSCULOSKELETAL: Denies myalgia. NEUROLOGIC: Denies headache. All systems reviewed & are unremarkable except as noted in HPI and below PMFSH Past Medical History Medical History History of sinus problem Ulcerative proctitis Acid reflux Ulcerative colitis Surgical History Surgical History H/O sinus surgery Family History Family History Father Alive and well Mother Alive and well Social History Social History Smoking status: Former smoker Tobacco type: cigarettes Second hand tobacco smoke exposure: No Smoking end date: 03/04/11 Alcohol intake: never Substance use: never Substance use type: does not use Living arrangements: with family Occupation/Education: occupation Gender identity (if verbalized by the patient): Male Spiritual care concerns: No Comments At time of signature, agree with nursing past medical, surgical, social and family history. There is no relevant family history pertinent to the presenting complaint Exam Narrative: GENERAL: Well-appearing, well-nourished, and in no acute distress. HEAD: Normocephalic EYES: PERRLA, conjunctivae clear ENT: Nares clear, turbinates edematous and erythematous, clear to light yellow discharge. Mucous membranes moist. TM pearly batista with dull light reflex bilaterally; no tragal tenderness. Oropharynx erythematous without lesions. Tonsils not enlarged and without exudate, no drooling, no hoarseness, no trismus, uvula midline. NECK: Supple. No lymphadenopathy CHEST: Clear to auscultation, breath sounds equal. No wheezing, rhonchi, rales, or stridor. No respiratory distress, speaks in full sentences, cough SAO2 98% on room air HEART: Regular rate and rhythm. No murmur heard. SKIN: Warm, dry, no rash. NEURO: Alert and oriented x3. PSYCH: Normal mood and affect Course Course Emergency Course: Patient is aware of diagnosis, understands and agrees to treatment plan.? Anticipatory guidance given.? Patient agrees to follow-up as directed and is aware of reasons to seek care at the emergency department. Portions of this record may have been created with voice recognition software Level of Care: Express Care Visit Vital Signs Vital signs: Vital Signs Temperature 36.5 C 05/25/24 08:04 Pulse Rate 94 05/25/24 08:04 Respiratory Rate 20 05/25/24 08:04 Blood Pressure 140/84 05/25/24 08:04 Pulse Oximetry 98 05/25/24 08:04 Oxygen Delivery Room Air 05/25/24 08:04 Temperature 36.5 C 05/25/24 08:04 Pulse Rate 94 05/25/24 08:04 Respiratory Rate 20 05/25/24 08:04 Blood Pressure 140/84 05/25/24 08:04 Pulse Oximetry 98 05/25/24 08:04 Oxygen Delivery Room Air 05/25/24 08:04 Reviewed MDM - URI/Sore Throat MDM Narrative Medical decision making narrative: Differential diagnosis considered: Miguel virus, strep pharyngitis, allergic rhinitis, upper respiratory tract infection, sinusitis, rhinosinusitis, nasopharyngitis. viral pharyngitis, otitis media, otitis externa, pneumonia, bronchitis, viral cough syndrome, viral syndrome, and influenza.? Exam findings show no acute concerns or changes; patient is non-toxic appearing and is in no distress.? Patient is appropriate for outpatient treatment and follow-up. Differential Diagnosis Differential diagnosis: Likely upper respiratory infection, sinusitis, viral infection and other (cough and congestion) Medical Records Attestation: I reviewed the patient's medical records. Lab Data Attestation: I reviewed the patient's lab results. Critical Care Time Critical Care Time Critical Care Time: No Discharge Plan Discharge Clinical Impression: URI with cough and congestion Patient Disposition: Home, Self-Care Condition: Stable Instructions: Antibiotic Form, Upper Respiratory Infection (ED) Additional Instructions: Increase fluids especially juices and water Emec-hze-xrhqzrh cough and cold medicine of your choice for your symptoms Tylenol or ibuprofen for any fever pain Zyrtec Claritin or Licha heat to the face 20-30 minutes 4-6 times a day for pain Salt water gargles, throat lozenges or throat sprays as desired Antibiotic as directed--finished the medication If your symptoms persist, change or worsen significantly before you can contact your personal physician then please, without delay, go to the emergency department for further evaluation. Follow-up with PCP in 7-10 days or sooner if needed Follow up with PCP soon in regards to your blood pressure which is elevated above threshold for referral. Blood pressure above 120/80 may indicate pre-hyp ertension. 140/84 Patient Language: Latvian Prescriptions: New azithromycin 250 mg tablet See Rx Instructions .ROUTE .COMPLEX Qty: 6 0RF Rx Instructions: For 250 mg dose pack: take 500 mg today (day 1), then 250 mg for 4 days (days 2-5) No Action azithromycin 250 mg tablet See Rx Instructions .ROUTE .COMPLEX Qty: 6 0RF Rx Instructions: For 250 mg dose pack: take 500 mg today (day 1), then 250 mg for 4 days (days 2-5) multivitamin [Multiple Vitamins] Tablet 1 tablet PO DAILY mesalamine 1,000 mg suppository See Rx Instructions .ROUTE .COMPLEX Qty: 90 1RF Dose Instruction: INSERT 1 SUPPOSITORY RECTALLY EVERY DAY AT BEDTIME FOR 3 WEEKS Rx Instructions: INSERT 1 SUPPOSITORY RECTALLY EVERY DAY AT BEDTIME FOR 3 WEEKS Follow-up/Referrals: Carlos Manuel,MD Tad [Primary Care Provider] - Time of Disposition: 08:23 Quality [place] Coma Scale Eyes: Open Verbal: Oriented and Alert Motor: Follows Commands [place] Coma Total Score: 15
--- OUTSIDE RECORDS SUMMARY | 2024-05-25 08:10 | XMS_ITS | Clinical Summary ---
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
--- OUTSIDE RECORDS SUMMARY | 2024-05-25 08:10 | XMS_ITS | Referral Summary ---
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
--- OUTSIDE RECORDS SUMMARY | 2024-05-25 08:10 | XMS_ITS | Clinical Summary ---
Author Organization [facility] Address [address] [place] [address] Care Team Providers Care Line Staker Name Role Phone Unavailable Primary Care Provider Unavailabl e Source Comments [facility],non-owned Affiliates and Associated Physician Practices is amultiple site organization consisting of ambulatory clinics and hospital sitesin [place], [place], [place] and [place]. This disclosure is being madepursuant to the Care Everywhere program and may not contain all information available regarding this patient. Last updated 17.[facility] Allergies Active Allergy Reactions Criticality Noted Date Comments Erythromycin Other 04/09/2019 As an infant Cephalexin Other 04/09/2019 As an infant Medications * Be aware that medications may [...] Comments Blood Pressure 122/70 04/09/2019 11:24 AM TRANSPORTATION JOB TITLES Pulse 99 04/09/2019 11:24 AM TRANSPORTATION JOB TITLES Temperature 37.7 C (99.8 F) 04/09/2019 11:24 AM TRANSPORTATION JOB TITLES Respiratory Rate 16 04/09/2019 11:24 AM TRANSPORTATION JOB TITLES Oxygen Saturation 98% 04/09/2019 11:24 AM TRANSPORTATION JOB TITLES Inhaled Oxygen Concentration - - Weight 77.1 kg (170 lb) 04/09/2019 11:24 AM TRANSPORTATION JOB TITLES Height 177.8 cm (5' 10 ) 04/09/2019 11:24 AM TRANSPORTATION JOB TITLES Body Mass Index 24.39 04/09/2019 11:24 AM TRANSPORTATION JOB TITLES Plan of Treatment Health Maintenance Due Date [...] to complete this topic MENINGOCOCCAL (Group B) VACC INE SHARED DECISION-MAKING Aged Out No longer eligibl e based on patient's age to complete this topic MENINGOCOCCAL GROUPS A/C/Y/W VACCINE Aged Out No longer eligible b ased on patient's age to complete this topic PNEUMOCOCCAL VACCINE Aged Out No long er eligible based on patient's age to complete this topic
--- OUTSIDE RECORDS SUMMARY | 2024-05-25 08:10 | XMS_ITS | Clinical Summary ---
Author Organization [facility] Address [address] [place] [id number] Care Team Providers Care Medical Administrative Assistant Name Role Phone Unavailable Primary Care Provider [...]
== END 2024-05-25 08:26 | disposition home or self-care (01) ==
PROVIDERS: Emergency Provider Registered Nurse; PCP Family Medicine
DX: J06.9 Acute upper respiratory infection, unspecified (principal); R05.9 Cough, unspecified; Z87.891 Personal history of nicotine dependence; K21.9 Gastro-esophageal reflux disease without esophagitis
CPT/HCPCS: 99213; G0463

== ENCOUNTER 2024-08-07 00:16 | Day surgery (SDC) | payer OTHER, SELFPAY ==
[2024-08-03 15:35] VITALS: BMI 28.0
--- OUTSIDE RECORDS SUMMARY | 2024-08-07 00:19 | XMS_ITS | Clinical Summary ---
Author Organization [facility] Address [address] [place] [address] Care Team Providers Care Folding Machine Setter Name Role Phone Unavailable Primary Care Provider Unavailabl e Source Comments [facility],non-owned Affiliates and Associated Physician Practices is amultiple site organization consisting of ambulatory clinics and hospital sitesin [place], [place], [place] and [place]. This disclosure is being madepursuant to the Care Everywhere program and may not contain all information available regarding this patient. Last updated 17.[facility] Allergies Active Allergy Reactions Criticality Noted Date Comments Erythromycin Other 04/09/2019 As an Cephalexin Other 04/09/2019 As an infant Medications * Be aware that medications may not be up to date on this document. Alwaysverify current medications with the patient. 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 Gender Identity Not on file Sexual Orientation Not on file Last Filed Vital Signs Vital Sign Reading Time Taken Comments Blood Pressure 122/70 04/09/2019 11:24 AM REMEDIATION CONSULTANT Pulse 99 04/09/2019 11:24 AM REMEDIATION CONSULTANT Temperature 37.7 C (99.8 F) 04/09/2019 11:24 AM REMEDIATION CONSULTANT Respiratory Rate 16 04/09/2019 11:24 AM REMEDIATION CONSULTANT Oxygen Saturation 98% 04/09/2019 11:24 AM REMEDIATION CONSULTANT Inhaled Oxygen Concentration - - Weight 77.1 kg (170 lb) 04/09/2019 11:24 AM REMEDIATION CONSULTANT Height 177.8 cm (5' 10) 04/09/2019 11:24 AM REMEDIATION CONSULTANT Body Mass Index 24.39 04/09/2019 11:24 AM REMEDIATION CONSULTANT Plan of Treatment Health Maintenance Due Date Last Done Comments HIV SCREENING 2005 HEPATITIS C SCREENING 09/01/2008 DTAP/TDAP/TD VACCINES (1 - Tdap) 2009 HEPATITIS B VACCINE (1 of 3 - 19+ 3-dose series) 2009 COVID-19 VACCINE ( - 2023-2 5 season) 2023 DEPRESSION SCREENING 03/04/2024 INFLUENZA VACCINE (Season Ended) 2024 ZOSTER VACCINE (1 of 2) 2040 HIB [...] patient's age to complete this topic Insurance [place] [address] [address]
[2024-08-07 09:43] VITALS: BP 116/53; PULSE 88; RESP 18; TEMP 36.1; O2SAT 100
[2024-08-07] MEDS: LACTATED RINGERS 1,000 ML 150 ML IV CONT (09:56)
--- NOTE | 2024-08-07 10:34 | WPDANESEPPF ---
Anes - Initial Pre Proc Eval Procedure: Operation Date: 08/07/24 11:00 Proposed Procedures p Colonoscopy - Refugio Lewis MD Date/Time: 08/07/24 10:34 Surgeon: Refugio Lewis MD Pre Op Diagnosis: Hemorrhage of anus and rectum, fecal abnormalities Patient Data Age: 33 Gender: M Height: 1.75 m Weight: 82.3 kg Last Vital Signs Temp 36.1 C L 08/07/24 09:43 Pulse 88 08/07/24 09:43 Resp 18 08/07/24 09:43 BP 116/53 L 08/07/24 09:43 Pulse Ox 100 08/07/24 09:43 O2 Del Method Room Air 08/07/24 09:43 Allergies Allergy/AdvReac Type Severity Reaction Status Date / Time diphtheria,pertussis Allergy Severe Difficulty Verified 08/07/24 09:41 (acellular),te (From Breathing Boostrix Tdap) cephalexin (From Keflex) Allergy Intermediate Hives Verified 08/07/24 09:41 erythromycin base Allergy Intermediate Hives Verified 08/07/24 09:41 Home Medications ?Medication ?Instructions ?Recorded ?Confirmed ?Type multivitamin (Multiple Vitamins 1 tablet PO DAILY 10/22/23 08/07/24 History tablet) mesalamine 1,000 mg rectal See Rx Instructions .Route 06/05/24 08/07/24 Rx suppository .COMPLEX #90 supp Patient hx anesthesia problems: none Family hx anesthesia problems: none Results Review: All pre-operative results and documents have been reviewed as part of the pre-operative evaluation. [facility] Past Medical History Medical History History of sinus problem Ulcerative proctitis Acid reflux Ulcerative colitis Surgical History Surgical History H/O sinus surgery Family History Family History Father Alive and well Mother Alive and well Social History Social History Smoking status: Former smoker Tobacco type: cigarettes Second hand tobacco smoke exposure: No Smoking end date: 03/04/11 Alcohol intake: never Substance use: never Substance use type: does not use Living arrangements: with family Occupation/Education: occupation Gender identity (if verbalized by the patient): Male Spiritual care concerns: No Anes - Eval Final PreProcedure Day of Procedure 08/07/24 10:34 Patient weight: normal Heart: regular rate and rhythm Lungs: clear to auscultation Airway: Mallampati scale class II Neurological: alert and oriented Last oral intake: >/= 8 hours ASA classification: II Emergent: no Anesthetic plan: proceed Anesthesia type and monitoring: general GIVS and standard monitoring Results Review: All pre-operative results and documents have been reviewed as part of the pre-operative evaluation. Informed Consent: The patient's anesthetic plan and its attendant risks and benefits were discussed with the patient/family/POA. Questions were solicited and answers provided to the satisfaction of the patient/family/POA.
--- NOTE | 2024-08-07 11:11 | PM.IMHP ---
H&P: HPI History of Present Illness Date/Time: 08/07/24 11:11 Chief Complaint: Urgency, possible flare up of ulcerative proctitis Narrative: patient has a longstanding history of ulcerative proctitis, last colonoscopy 2022, showing active proctitis involving the most distal 10 cm of the rectum. He has an elevated calprotectin level of 507. He is here for colonoscopy and is currently taking mesalamine 4.8 g q.d.. Review of Systems Review of Systems: All systems reviewed & are unremarkable except as noted in HPI and below PMFSH Past Medical History Medical History History of sinus problem Ulcerative proctitis Acid reflux Ulcerative colitis Surgical History Surgical History H/O sinus surgery Family History Family History Father Alive and well Mother Alive and well Social History Social History Smoking status: Former smoker Tobacco type: cigarettes Second hand tobacco smoke exposure: No Smoking end date: 03/04/11 Alcohol intake: never Substance use: never Substance use type: does not use Living arrangements: with family Occupation/Education: occupation Gender identity (if verbalized by the patient): Male Spiritual care concerns: No Meds Home Medications and Allergies Home Medications ?Medication ?Instructions ?Recorded ?Confirmed ?Type multivitamin (Multiple Vitamins 1 tablet PO DAILY 10/22/23 08/07/24 History tablet) mesalamine 1,000 mg rectal See Rx Instructions .Route 06/05/24 08/07/24 Rx suppository .COMPLEX #90 supp Allergies Allergy/AdvReac Type Severity Reaction Status Date / Time diphtheria,pertussis Allergy Severe Difficulty Verified 08/07/24 09:41 (acellular),te (From Breathing Boostrix Tdap) cephalexin (From Keflex) Allergy Intermediate Hives Verified 08/07/24 09:41 erythromycin base Allergy Intermediate Hives Verified 08/07/24 09:41 Vital Signs Vital Signs - 24 hr 08/07/24 09:43 Temperature 97 F L Pulse Rate 88 Respiratory Rate 18 Blood Pressure 116/53 L Pulse Oximetry 100 Oxygen Delivery Room Air Exam Const: General: cooperative and healthy appearing Resp: Effort & Inspection: normal respiratory effort and able to speak in complete sentences Auscultation: clear to auscultation bilaterally Cardio: Rate: regular rate Rhythm: regular rhythm GI: Inspection: normal to inspection GI Palp: No No hepatosplenomegaly present Auscultation: normal bowel sounds Rectal Exam: deferred Skin: General skin exam: normal color Psych: Appearance: grossly normal Mental Status: mental status grossly normal Assessment and Plan Assessment and plan (1) Ulcerative colitis: Qualifiers: Ulcerative colitis location: ulcerative proctitis Digestive disease complication type: with rectal bleeding Qualified Code(s): K51.211 - Ulcerative (chronic) proctitis with rectal bleeding Code(s): K51.90 - Ulcerative colitis, unspecified, without complications Status: Acute Assessment and Plan: The patient is deemed a good candidate for the procedure. Consent signed. Will proceed.
[2024-08-07] MEDS: SIMETHICONE ORAL SUSPENSION 20 MG/0.3 ML 30 ML BOTTLE 0.6 ML IRRIGATION (11:19)
--- NOTE | 2024-08-07 11:30 | S_PTH ---
PATIENT: Shen Thomas LOC: [facility]#:[id number] AGE/SX: 33/M ROOM: RE08/07/[address]: Refugio Lewis MD : 1990 BED: DIS: 08/07/2024 SPEC #: [id number] RECD: 08/07/24 13:02 STATUS: JUDY REOlman #: [id number] OMID: 08/07/24 11:[address]: Refugio Lewis DEPT: [facility] Surgical RECD BY: Kourtney Casey ENTERED: 08/07/24 13:03 SP TYPE: Surgical OTHR DR: Tad HorowitzMD Tissues: A - Rectal Biopsy B - Colon Biopsy Procedures: Hematoxylin and Eosin Stain Gross and Microscopic Level 4
[2024-08-07 11:32] VITALS: BP 107/70; PULSE 76; RESP 21; O2SAT 100
[2024-08-07 11:42] VITALS: BP 113/73; PULSE 80; RESP 24; O2SAT 100
[2024-08-07 11:52] VITALS: BP 113/82; RESP 14; O2SAT 100
== END 2024-08-07 12:03 | disposition home or self-care (01) ==
PROVIDERS: PCP Family Medicine; Referring Provider Nurse Practitioner Family; Visit Provider Internal Medicine Gastroenterology
PROC: 0DJD8ZZ Inspection of Lower Intestinal Tract, Via Natural or Artificial Opening Endoscopic (ICD-10-PCS; CPT 45378; principal; 2024-08-07 11:00)
DX: K51.211 Ulcerative (chronic) proctitis with rectal bleeding (principal); K51.90 Ulcerative colitis, unspecified, without complications; Z87.891 Personal history of nicotine dependence
CPT/HCPCS: 45380; 88305; J2003; J2704; J7120

== ENCOUNTER 2024-08-26 16:43 | Emergency (ER) | payer OTHER, SELFPAY ==
[2024-08-26 16:52] VITALS: BP 144/88; PULSE 67; RESP 18; TEMP 36.1; O2SAT 100
--- NOTE | 2024-08-26 16:57 | ED_ITS ---
HPI - Skin/Abscess/Foreign Bdy General Chief complaint: Skin/Abscess/Foreign Body Stated complaint: bite on stomach Time Seen by Provider: 08/26/24 16:57 Source: patient Mode of arrival: ambulatory Limitations: no limitations History of Present Illness HPI narrative: 33 yo M presents with insect bite to ABD for 5 days. Itchy and tender. Takes a daily antihistamine for seasonal allergies. Afebrile. Noticed insect bite after yardwork. all systems reviewed and negative except as noted above. Related Data Home Medications ?Medication ?Instructions ?Recorded ?Confirmed ?Last Taken ?Type multivitamin (Multiple Vitamins 1 tablet PO DAILY 10/22/23 08/07/24 08/06/24 History tablet) Lialda 08/26/24 Unknown History meslamine 08/26/24 Unknown History Allergies Allergy/AdvReac Type Severity Reaction Status Date / Time diphtheria,pertussis Allergy Severe Difficulty Verified 08/26/24 16:59 (acellular),te (From Breathing Boostrix Tdap) cephalexin (From Keflex) Allergy Intermediate Hives Verified 08/26/24 16:59 erythromycin base Allergy Intermediate Hives Verified 08/26/24 16:59 Review of Systems Review of Systems: CONSTITUTIONAL: Denies fever, chills, or sweats. EYES: Denies visual changes, redness, or discharge. ENT: Denies rhinorrhea, congestion, sore throat, or otalgia. CARDIOVASCULAR: Denies chest pain, palpitations, or edema. RESPIRATORY: Denies cough or dyspnea. GASTROINTESTINAL: Denies abdominal pain, nausea, vomiting, or diarrhea. GENITOURINARY: Denies dysuria or hematuria. SKIN: Denies rash or itching. Reports insect bite to abdomen MUSCULOSKELETAL: Denies back pain, joint pain, or myalgia. NEUROLOGIC: Denies headache, numbness, or weakness. PSYCHIATRIC: Denies anxiety or depression. All other systems reviewed are negative, except as documented in HPI. [facility] Past Medical History Medical History History of sinus problem Ulcerative proctitis Acid reflux Ulcerative colitis Surgical History Surgical History H/O sinus surgery Family History Family History Father Alive and well Mother Alive and well Social History Social History Years smoked: 4 Smoking status: Former smoker Tobacco type: cigarettes Second hand tobacco smoke exposure: No Smoking end date: 03/04/11 Alcohol intake: never Substance use: never Substance use type: does not use Living arrangements: with family Additional living arrangements comments: with sp Occupation/Education: occupation Gender identity (if verbalized by the patient): Male Spiritual care concerns: No Comments At time of signature, agree with nursing past medical, surgical, social and family history. There is no relevant family history pertinent to the presenting complaint. Exam Narrative: GENERAL: This is a well-nourished, well-developed patient, in no apparent distress. HEAD: normocephalic, atraumatic. EYES: PERRL. Sclera clear/white. Vision is grossly intact. EARS: External ears normal NOSE: External nose normal NECK: Neck supple, non-tender without lymphadenopathy, masses or thyromegaly. CARDIOVASCULAR: Regular rate and rhythm without murmurs, gallops, or rubs. RESPIRATORY: Clear to auscultation. Breath sounds equal bilaterally. No wheezes, rales, or rhonchi. SKIN: warm, Dry, intact with no suspicious lesions or rash, good texture and turgor. erythematous raised papule with surrounding erythema to abdominal wall approximately 2 cm diameter without fluctuance. NEURO: awake, alert, and oriented to person, place and time. There were no obvious focal neurologic abnormalities. EXTREMITIES: No joint tenderness, effusion, or edema noted. Course Course Level of Care: Express Care Visit Vital Signs Vital signs: Vital Signs Temperature 36.1 C L 08/26/24 16:52 Pulse Rate 67 08/26/24 16:52 Respiratory Rate 18 08/26/24 16:52 Blood Pressure 144/88 H 08/26/24 16:52 Pulse Oximetry 100 08/26/24 16:52 Oxygen Delivery Room Air 08/26/24 16:52 Temperature 36.1 C L 08/26/24 16:52 Pulse Rate 67 08/26/24 16:52 Respiratory Rate 18 08/26/24 16:52 Blood Pressure 144/88 H 08/26/24 16:52 Pulse Oximetry 100 08/26/24 16:52 Oxygen Delivery Room Air 08/26/24 16:52 Reviewed MDM - Skin/Abscess/Foreign Bdy MDM Narrative Medical decision making narrative: will treat insect bite with triamcinolone. Recommend he continue daily antihistamine. Patient is well-appearing, nontoxic. Discharge Plan Discharge Clinical Impression: Insect bite of abdomen with local reaction Qualifiers: Encounter type: initial encounter Qualified Code(s): S30.861A - Insect bite (nonvenomous) of abdominal wall, initial encounter Patient Disposition: Home Condition: Stable Instructions: Insect Bite or Sting (ED) Additional Instructions: Apply steroid cream 2 to 3 times a day sparingly to affected area. Take a daily antihistamine. Take ibuprofen every 6 to 8 hours as needed for pain. Patient Language: Romansh Prescriptions: New triamcinolone acetonide 0.1 % cream 1 applic topical BID PRN (Reason: insect bite) Qty: 30 0RF No Action Lialda meslamine multivitamin [Multiple Vitamins] Tablet 1 tablet PO DAILY Follow-up/Referrals: Carlos Manuel,MD Tad [Primary Care Provider] - Time of Disposition: 17:03
== END 2024-08-26 17:12 | disposition home or self-care (01) ==
PROVIDERS: Emergency Provider Nurse Practitioner Family; PCP Family Medicine
DX: S30.861A Insect bite (nonvenomous) of abdominal wall, initial encounter (principal); W57.XXXA Bitten or stung by nonvenomous insect and other nonvenomous arthropods, initial encounter; Z87.891 Personal history of nicotine dependence; K21.9 Gastro-esophageal reflux disease without esophagitis
CPT/HCPCS: 99213; G0463

== ENCOUNTER 2024-09-08 16:44 | Outpatient (CLI) | payer OTHER, SELFPAY ==
--- OUTSIDE RECORDS SUMMARY | 2024-09-08 16:47 | XMS_ITS | Clinical Summary ---
Author Organization [facility] Address [address] [place] [id number] Care Team Providers Care Heel Scourer Name Role Phone Unavailable Primary Care Provider [...] Vaccine ( - 2023-2 5 season) 2023 HPV Vaccines Aged Out No longer eligi ble based on patient's age to complete this topic Meningococcal B Vaccine Aged Out No l onger eligible based on patient's age to complete this topic Meningococcal Vaccine Aged Out No niraj linda eligible based on patient's age to complete this topic Pneumococcal Vaccine: Pediat rics (0 to 5 Years) and At-Risk Patients (6 to 49 Years) Aged Out No longer eligible b ased on patient's age to complete this topic RSV Immunizations Under 20 Months Aged Out No longer eligible based on patient's age to complete this topic
--- OUTSIDE RECORDS SUMMARY | 2024-09-08 16:47 | XMS_ITS | Clinical Summary ---
Author Organization [facility] Address [address] [place] [address] Care Team Providers Care Supervisor Engine Assembly Name Role Phone Unavailable Primary Care Provider Unavailabl e Source Comments [facility],non-owned Affiliates and Associated Physician Practices is amultiple site organization consisting of ambulatory clinics and hospital sitesin [place], [place], [place] and [place]. This disclosure is being madepursuant to the Care Everywhere program and may not contain all information available regarding this patient. 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 Gender Identity Not on file Sexual Orientation Not on file Last Filed Vital Signs Vital Sign Reading Time Taken Comments Blood Pressure 122/70 04/09/2019 11:24 AM CRIME LABORATORY ANALYST Pulse 99 04/09/2019 11:24 AM CRIME LABORATORY ANALYST Temperature 37.7 C (99.8 F) 04/09/2019 11:24 AM CRIME LABORATORY ANALYST Respiratory Rate 16 04/09/2019 11:24 AM CRIME LABORATORY ANALYST Oxygen Saturation 98% 04/09/2019 11:24 AM CRIME LABORATORY ANALYST Inhaled Oxygen Concentration - - Weight 77.1 kg (170 lb) 04/09/2019 11:24 AM CRIME LABORATORY ANALYST Height 177.8 cm (5' 10) 04/09/2019 11:24 AM CRIME LABORATORY ANALYST Body Mass Index 24.39 04/09/2019 11:24 AM CRIME LABORATORY ANALYST Plan of Treatment Health Maintenance Due Date Last Done Comments HIV SCREENING 2005 HEPATITIS C SCREENING 09/01/2008 DTAP/TDAP/TD VACCINES (1 - Tdap) 2009 HEPATITIS B VACCINE (1 of 3 - 19+ 3-dose series) 2009 COVID-19 VACCINE (1 - 2023-2 5 season) 2023 DEPRESSION SCREENING 03/04/2024 INFLUENZA VACCINE (#1) 2024 ZOSTER VACCINE (1 of 2) 2040 [...] age to complete this topic Insurance [employer] SELF PAY NO INSURANCE Member Subscriber Plan / Payer (Ef fective for All Dates) Name:Bone, Shen P Member ID:Not on file Relation to Subscriber:Not on file Name:BONE,SHEN Subscriber ID:Not on file (Home) Address: [address] [place] [id number] Payer ID:Not on file Group ID:Not on file Type:Self Pay Address: [facility] [place], [place] [id number] [place] [address] CARE
[2024-09-08 19:05] LABS: Hepatitis B Core IgM Result Negative (Negative)
[2024-09-10 07:09] LABS: Hep B Core Ab, Total Negative (Negative)
== END 2024-09-08 16:45 | disposition home or self-care (01) ==
LOC: ANHLAB 16:46
PROVIDERS: PCP Family Medicine; Visit Provider Nurse Practitioner Family
DX: K51.211 Ulcerative (chronic) proctitis with rectal bleeding (principal)
CPT/HCPCS: 36415; 86480; 86704; 86705